=== PATIENT | male | born 1955 | race Caucasian/White ===

== ENCOUNTER 2017-08-06 14:10 | Inpatient (IN) ==
[2017-08-06 16:57] LABS: Basophils % 0.4 %; Eosinophils # 0.2 K/mcL (0.0-0.6); Hematocrit 43.7 % (37.5-50.1); Hemoglobin 14.4 g/dL (12.9-16.9); Immature Granulocytes % 0.3 % (0-4); Lymphocytes % 36.8 %; Mean Corpuscular Hemoglobin 31.6 pg (28.0-33.3); Mean Corpuscular Volume 95.8 fL (83.0-100.0); Mean Platelet Volume 10.5 fL (9.4-12.4); Monocytes # 0.8 K/mcL (0.0-1.3); Monocytes % 7.3 %; Neutrophils # 5.7 K/mcL (1.6-8.9); Platelet Count 117 K/mcL (140-400); Red Blood Count 4.56 M/mcL (4.19-5.50); Red Cell Distribution Width 15.8 % (11.5-14.5); Segmented Neutrophils % 53.2 %
--- NOTE | 2017-08-06 17:01 | Emergency Department Note ---
Disposition Clinical Impression: Fracture of third metatarsal bone of left foot, Failure to thrive Bimalleolar fracture of left ankle Qualifiers: Encounter type: initial encounter Fracture type: closed Qualified Code(s): S82.842A - Displaced bimalleolar fracture of left lower leg, initial encounter for closed fracture Fracture of second metatarsal bone of left foot Qualifiers: Encounter type: initial encounter Fracture type: closed Fracture dislocation of left ankle Qualifiers: Encounter type: initial encounter Fracture type: closed Qualified Code(s): S82.892A - Other fracture of left lower leg, initial encounter for closed fracture Disposition: Admitted As Inpatient Condition: Good Referrals: Sam Solorzano DO [Primary Care Provider] - Forms: ED Satisfaction Letter Time of Disposition: 17:06 General Adult HPI - General Chief complaint: ED Extremity Injury, Lower Stated complaint: LEG PAIN Time Seen by Provider: 08/06/17 14:18 Source: patient Mode of arrival: ambulatory Limitations: physical limitation Nursing Notes Reviewed: Yes Vital Signs Reviewed: Yes - History of Present Illness HPI Narrative: 61-year-old male presents emergency room for left lower leg pain. States he fell over a month ago injuring his left ankle. CTs been unable to ambulate secondary to the pain. He lives alone but has had a friend over at the house helping him get around. He states his left leg has become more swollen. He denies any history of DVT. He denies any chest pain or shortness of breath. No other complaints at this time other than lower left leg pain and swelling in weakness in this left leg. Pain Scale: 7 - Related Data Allergies Allergy/AdvReac Type Severity Reaction Status Date / Time No Known Allergies Allergy Verified 05/17/15 12:48 All systems ED: reviewed and negative except as stated. Constitutional: Reports: weakness. Denies: fever, chills Eyes: Reports: as per HPI ENT ED: Reports: as per HPI Cardiovascular: Reports: as per HPI Respiratory: Reports: as per HPI Gastrointestinal: Reports: as per HPI Genitourinary: Reports: as per HPI Musculoskeletal: Reports: as per HPI Integumentary: Reports: as per HPI Neurological: Reports: as per HPI Psychiatric: Reports: as per HPI Endocrine: Reports: as per HPI Hematological/Lymphatic: Reports: as per HPI Past Medical History - Past Medical History Medical history: Reports: COPD, diabetes, hyperlipidemia, hypertension, other Psychiatric history: Reports: anxiety, depression - Social History Smoking Status: Current every day smoker Smokeless Tobacco Status: No Alcohol use: Reports: none Drug use: Reports: none Physical Exam - General Limitations: physical limitation General appearance: alert - Head Head exam: atraumatic, normocephalic - Eye Eye exam: Present: normal appearance - Chest Chest inspection: Present: normal inspection - Respiratory Respiratory exam: Present: normal lung sounds bilaterally - Cardiovascular Cardiovascular exam: Present: regular rate, normal rhythm - Abdominal Exam Abdominal exam: Present: soft, Non-Tender - Expanded Lower Extremity Exam Lower leg exam: Present: tenderness (Diffuse tenderness involving the left lower extremity extending down into the foot. There is diffuse swelling in both lower extremities but worse on the left side extending up to the mid thigh. He has chronic skin changes.) 1 - Diffuse tenderness along the lateral malleolus on the left 2 - Diffuse tenderness along the medial malleolus of the left ankle Neurovascular/Tendon exam: Present: normal capillary refill Gait: observed and normal - Neurological Exam Neurological exam: Present: alert, oriented X3 - Skin Skin exam: Present: warm, dry, intact Course Vital Signs Temperature 98.4 F 08/06/17 14:12 Pulse Rate 106 08/06/17 14:12 Respiratory Rate 22 08/06/17 14:12 Blood Pressure 116/80 08/06/17 14:12 O2 Sat by Pulse Oximetry 97 08/06/17 14:12 Temperature 98.4 F 08/06/17 14:12 Pulse Rate 103 08/06/17 14:56 Respiratory Rate 14 08/06/17 14:56 Blood Pressure 113/80 08/06/17 14:56 O2 Sat by Pulse Oximetry 95 08/06/17 14:56 Oxygen Delivery Oxygen Delivery Room Air Medical Decision Making - MDM Narrative Medical decision making narrative: Concerns on the x-ray for a distal tib-fib fracture as well as the tibiotalar dislocation. He also has fractures of the second and third metatarsals of the left foot. I spoke with podiatry who agreed to evaluate the patient from their standpoint. Patient will be admitted to the hospitalist group as he is unable to ambulate or get around secondary to this which in turn has left him to be unkept and just can't take care of himself. Dr Wells will eval for possible surgery on this ankle. pt is a known diabetic. - Medical Records Medical records reviewed: Yes I reviewed the patient's medical records. - Lab Data Lab results reviewed: Yes I reviewed the patient's lab results. Result diagrams: 08/06/17 16:47 Lab Results 08/06/17 Range/Units 16:47 WBC 10.8 (4.3-11.1) K/mcL RBC 4.56 (4.19-5.50) M/mcL Hgb 14.4 (12.9-16.9) g/dL Hct 43.7 (37.5-50.1) % MCV 95.8 (83.0-100.0) fL MCH 31.6 (28.0-33.3) pg MCHC 33.0 (31.6-35.5) g/dL RDW 15.8 H (11.5-14.5) % Plt Count 117 L (140-400) K/mcL MPV 10.5 (9.4-12.4) fL Immature Gran % 0.3 (0-4) % Seg Neutrophils % 53.2 % Lymphocytes % 36.8 % Monocytes % 7.3 % Eosinophils % 2.0 % Basophils % 0.4 % Neutrophils # 5.7 (1.6-8.9) K/mcL Lymphocytes # 4.0 (0.6-4.6) K/mcL Monocytes # 0.8 (0.0-1.3) K/mcL Eosinophils # 0.2 (0.0-0.6) K/mcL Basophils # 0.0 (0.0-0.2) K/mcL - Radiology Data Radiology results reviewed: Yes I reviewed the patient's radiology results. - EKG Data EKG #1 EKG attestation: Yes I reviewed and interpreted this EKG. EKG results narrative: EKG shows a rate of the neck. No sinus rhythm. Normal axis. NJ interval 155. QRS 90. QTc 3:30. No signs of acute ischemia. Critical Care Time Critical Care Time: No
[2017-08-06 17:03] LABS: INR 1.2; Prothrombin Time 13.1 Seconds (9.4-12.1)
[2017-08-06 17:08] LABS: Carbon Dioxide 28 mEq/L (23-29); Chloride 103 mEq/L (98-107); Potassium 3.9 mEq/L (3.5-5.1); Sodium 136 mEq/L (136-145)
[2017-08-06 17:14] LABS: BUN/Creatinine Ratio 14 (6-26); Blood Urea Nitrogen 14 mg/dL (8-23); Glucose 99 mg/dL (70-105); Osmolality,Calculated 283 (280-300); eGFR For Non-African Americans > 60 (> 60)
[2017-08-06] MEDS ORDERED: Acetaminophen 325 MG TABLET PO PRN (20:54)
[2017-08-06] MEDS ORDERED: Naloxone 0.4 MG/ML INJ IVP PRN (20:54)
[2017-08-06] MEDS ORDERED: Furosemide 20 MG TABLET PO PRN (21:05)
[2017-08-06] MEDS ORDERED: D5% in Water 1,000 ML IVC PRN (21:09)
[2017-08-06] MEDS ORDERED: *HR* Dextrose 50 % in Water (Syg) 50 ML SYRINGE IVP PRN (21:09)
[2017-08-06] MEDS ORDERED: Dextrose Gel 15 GM/37.5 ML TUBE PO PRN ×2 (21:09)
--- NOTE | 2017-08-06 21:16 | Internal Med History&Physical ---
Date of Encounter: 08/06/17 Time of Encounter: 19:00 Assessment and Plan (1) Diabetes mellitus Current visit: Yes Status: Acute Will place pt on Basal and SS insulin. 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 He is not using CPAP now. I offered CPAP or O2 in hospital, pt refused and said he is fine. Will place oximetry monitoring. (4) DVT prophylaxis Current visit: Yes Status: Acute Heparin SC (5) Bimalleolar fracture of left ankle Current visit: Yes Status: Acute Podiatry was consulted. Place pain management. NPO from midnight for possible surgery. Qualifiers: Encounter type: initial encounter Fracture type: closed Qualified Code(s) : S82.842A - Displaced bimalleolar fracture of left lower leg, initial encounter for closed fracture Internal Medicine - H&P: HPI Chief complaint: Fall, left ankle pain Admitted From: Home Plans for Post Hospital Care: Home History of present illness: Mr. Cannon is a 61 year old male with Hx of DM, HTN, Rt eye blindness, DARCI, present to ER for fall and left ankle pain. Pt has fall in 7 wks ago. Pt said he is not sure regarding if he lost consciousness or not because he has frequent dizzy spell in last 6 months. He feels dizzy anytime when he stand up suddenly. After the fall, he feels left ankle pain. He thought it is twisted but concern raised after 7 weeks the pain remains. In ER, He was found ankle fracture. Podiatry consult was called and pt was admitted for further evaluation. Pt denies chest pain, SOB, fever. Past Med Surg Social Fam HX - Past Medical History Medical history: COPD, diabetes, hyperlipidemia, hypertension, other Psychiatric history: anxiety, depression - Social History Smoking Status: Current every day smoker Smokeless Tobacco Status: No Alcohol use: none Drug use: none - Family History Mother Hx Family Cardiac Disorders: Yes (chf) Hx Family Endocrine Disorder: Yes (Diabetes) Internal Medicine - H&P: Meds Albuterol Sulfate [Ventolin Hfa] 2 puff IH Q4H PRN 08/06/17 [History] Ampicillin Trihydrate 500 mg PO Q6H 08/06/17 [History] Cholecalciferol (Vitamin D3) [Vitamin D] 2,000 unit PO DAILY 08/06/17 [History] Citalopram Hydrobromide [Celexa] 40 mg PO DAILY 08/06/17 [History] Cyclobenzaprine HCl 10 mg PO TID PRN 08/06/17 [History] Fluticasone Propionate Nasal [Flonase] 50 mcg NS DAILY 08/06/17 [History] Furosemide [Lasix] 20 mg PO DAILY PRN 08/06/17 [History] HYDROmorphone [Dilaudid] 2 mg PO Q12H 08/06/17 [History] Insulin Degludec [Tresiba Flextouch U-100] 50 unit SQ QPM 08/06/17 [History] Insulin LISPRO [Humalog Kwikpen U-100] 30 unit SQ QPM 08/06/17 [History] Lisinopril [Zestril] 20 mg PO DAILY 08/06/17 [History] Lovastatin [Lovastatin] 40 mg PO HS 08/06/17 [History] Oxymorphone HCl [Oxymorphone HCl ER] 5 mg PO DAILY 08/06/17 [History] Potassium Chloride [Klor-Con 10] 10 meq PO BID PRN 08/06/17 [History] Tamsulosin [Flomax] 0.4 mg PO DAILY 08/06/17 [History] Zolpidem [Ambien] 10 mg PO HS PRN 08/06/17 [History] 3 Allergy/AdvReac Type Severity Reaction Status Date / Time No Known Allergies Allergy Verified 05/17/15 12:48 All Systems PM: A 10-system review of systems was performed and is negative for pertinent findings except as documented above in the HPI. - Constitutional Vitals: Temp Pulse Resp BP Pulse Ox 98.3 F 97 18 115/73 94 08/06/17 19:49 08/06/17 19:49 08/06/17 19:49 08/06/17 19:49 08/06/17 19:49 General appearance: Present: A&O X 3, no acute distress, answers questions appropriately - Head Head exam: Present: atraumatic, normocephalic - Eye Eye exam: Present: PERRL, conjuntiva pink, sclera anicteric Pupils: Present: PERRL Additional comments: Rt eye blindness - Neck Neck exam general surgery: Present: supple, trachea midline. Absent: lymphadenopathy - Respiratory Respiratory exam: Present: CTAB. Absent: accessory muscle use, rales, rhonchi, wheezes - Cardiovascular Cardiovascular exam: Present: RRR, +S1, +S2. Absent: diastolic murmur, gallop, rubs, systolic murmur - GI/Abdominal GI/Abdominal exam: Present: normal bowel sounds, soft, no peritoneal signs. Absent: distended, tenderness - Extremities Exam Extremities exam: Present: warm, radial pulses palpable and symmetrical. Absent : calf tenderness, cyanotic, pedal edema Additional comments: Left leg swelling, left ankle ROM limited due to pain. - Neurological Exam Neurological exam: Present: CN II-XII intact, oriented X3, no focal deficits. Absent: pronater drift, facial droop, speech deficit - Skin Skin exam: Present: dry, intact Internal Med - H&P Results - Labs CBC & Chem 7: 08/06/17 16:47 08/06/17 16:47 - EKG Data -: EKG Interpreted by Myself EKG shows normal: sinus rhythm Rate: normal
[2017-08-07] MEDS: Insulin DETEMIR 100 UNIT/ML X5UNITS SQ SCH ×2 (00:41→23:18)
[2017-08-07] MEDS: *HR* Heparin 5,000 UNIT/ML VIAL SQ SCH ×2 (06:10→16:35)
[2017-08-07 07:30] LABS: Basophils % 0.5 %; Eosinophils # 0.3 K/mcL (0.0-0.6); Eosinophils % 3.3 %; Hematocrit 40.5 % (37.5-50.1); Immature Granulocytes % 0.2 % (0-4); Immature Platelets 3.1 % (1.1-6.1); Lymphocytes # 4.1 K/mcL (0.6-4.6); Lymphocytes % 49.8 %; Mean Corpuscular HGB Conc 32.1 g/dL (31.6-35.5); Mean Corpuscular Hemoglobin 31.4 pg (28.0-33.3); Mean Corpuscular Volume 97.8 fL (83.0-100.0); Mean Platelet Volume 10.2 fL (9.4-12.4); Monocytes # 0.6 K/mcL (0.0-1.3); Monocytes % 7.8 %; Neutrophils # 3.2 K/mcL (1.6-8.9); Nucleated Red Blood Cells 0.4 /100 WBC (0); Red Blood Count 4.14 M/mcL (4.19-5.50); Red Cell Distribution Width 15.9 % (11.5-14.5); Segmented Neutrophils % 38.4 %
[2017-08-07 07:33] LABS: Platelet Count 99 K/mcL (140-400)
[2017-08-07 07:34] LABS: Hemoglobin A1C 5.6 %
[2017-08-07 07:45] LABS: BUN/Creatinine Ratio 14 (6-26); Blood Urea Nitrogen 14 mg/dL (8-23); Calcium 8.6 mg/dL (8.6-10.3); Carbon Dioxide 27 mEq/L (23-29); Chloride 107 mEq/L (98-107); Glucose 73 mg/dL (70-105); Osmolality,Calculated 285 (280-300); Potassium 4.1 mEq/L (3.5-5.1); Sodium 138 mEq/L (136-145); eGFR For Non-African Americans > 60 (> 60)
[2017-08-07] MEDS: Insulin LISPRO 300 UNITS/3 ML VIAL SQ SCH ×4 (08:24→23:18)
[2017-08-07] MEDS: Lisinopril 20 MG TABLET PO SCH (08:56)
[2017-08-07] MEDS: Cholecalciferol (D-3) 1,000 UNIT TABLET PO SCH (08:56)
[2017-08-07] MEDS: Fluticasone Propionate Nasal 50 MCG/SPRAY BOTTLE NS SCH (08:56)
[2017-08-07] MEDS ORDERED: Nicotine 21 MG PATCH.TD24 TD SCH (09:00)
--- NOTE | 2017-08-07 09:24 | Internal Med Progress Note ---
<[email or web address] - Last Filed: 08/07/17 09:22> Date of Encounter: 08/07/17 Time of Encounter: 09:22 - Assessment and plan (1) Bimalleolar fracture of left ankle Current Visit: Yes Status: Acute Assessment and plan: Patient arrived to the hospital after a fall at home. X-ray of the left ankle showed subacute fractures of distal tibia and fibula with tibiotalar dislocation x-ray of the left foot showed chronic 2nd and 3rd toe fractures with posterior tibiotalar dislocation. plan: consult to PT/OT consult to podiatry pending echocardiogram pending carotid duplex pending orthostatic vitals Qualifiers: Encounter type: initial encounter Fracture type: closed Qualified Code(s) : S82.842A - Displaced bimalleolar fracture of left lower leg, initial encounter for closed fracture (2) Fall Current Visit: Yes Status: Acute Assessment and plan: Same as above. Qualifiers: Encounter type: sequela Qualified Code(s): W19.XXXS - Unspecified fall, sequela (3) Lower extremity edema Current Visit: Yes Status: Acute Assessment and plan: Patient takes Lasix at home PRN last echo from 09/14/16 showed LVEF 65-70%, mild concentric LVH, indeterminate diastolic function, normal RV size and function. Plan: will get UA to rule out proteinuria repeat echo (4) HTN (hypertension) Current Visit: Yes Status: Acute Assessment and plan: Continue medications blood pressures are stable at this time. Qualifiers: Hypertension type: essential hypertension Qualified Code(s): I10 - Essential (primary) hypertension (5) Tobacco abuse Current Visit: Yes Status: Acute Assessment and plan: Smoking cessation advice. Nicotine patch PRN (6) DARCI (obstructive sleep apnea) Current Visit: Yes Status: Acute Assessment and plan: Patient does have CPAP shooting at home that does not work. He refused CPAP in the hospital. 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 Patient denies nausea, vomiting, diarrhea, fever, chills, chest pain, shortness of breath. He states that he lives at home with a friend, and he has had multiple files in the past. He denies loss of consciousness. He states that when default occur, his legs "give out". He denies any new problems today. - Constitutional Vitals: Temp Pulse Resp BP Pulse Ox 97.6 F 82 16 116/69 92 08/07/17 07:29 08/07/17 07:29 08/07/17 07:29 08/07/17 07:29 08/07/17 07:29 General appearance: Present: A&O X 3, pleasant, no acute distress, answers questions appropriately Exam: Patient looks very disheveled. - Head Head exam: Present: atraumatic, normocephalic - Neck Neck exam general surgery: Present: supple, trachea midline - Respiratory Respiratory exam: Present: CTAB - Cardiovascular Cardiovascular exam: Present: RRR, +S1, +S2 - GI/Abdominal GI/Abdominal exam: Present: distended, normal bowel sounds, soft. Absent: tenderness - Extremities Exam Additional comments: Bilateral lower extremity venous stasis present. he has very dry skin is bilateral lower extremities. There is +1 pitting edema present and is bilateral lower extremities. - Neurological Exam Neurological exam: Present: alert, oriented X3, no focal deficits - Psychiatric Psychiatric exam: Present: normal affect, normal mood Internal Medicine: Result - Labs CBC & Chem 7: 08/07/17 06:53 08/07/17 06:53 Labs: Short CBC 08/07/17 Range/Units 06:53 WBC 8.2 (4.3-11.1) K/mcL Hgb 13.0 (12.9-16.9) g/dL Hct 40.5 (37.5-50.1) % Plt Count 99 L (140-400) K/mcL Neutrophils # 3.2 (1.6-8.9) K/mcL BMP 08/07/17 06:53 Sodium 138 Potassium 4.1 Chloride 107 Carbon Dioxide 27 BUN 14 Creatinine 1.02 Glucose 73 Calcium 8.6 - ABG Interpretation ABG results: PT/INR, D-dimer PT 13.1 Seconds (9.4-12.1) H 08/06/17 16:47 Consult Discharge Plan - Plan Referrals: Sam Solorzano DO [Primary Care Provider] - <Wenceslao Desai Sandoval - Last Filed: 08/07/17 13:32> Date of Encounter: 08/07/17 - Constitutional Vitals: Temp Pulse Resp BP Pulse Ox 97.8 F 87 16 118/86 93 08/07/17 11:22 08/07/17 12:46 08/07/17 11:22 08/07/17 12:46 08/07/17 11:22 Internal Medicine: Result - Labs CBC & Chem 7: 08/07/17 06:53 08/07/17 06:53 Labs: Short CBC 08/07/17 Range/Units 06:53 WBC 8.2 (4.3-11.1) K/mcL Hgb 13.0 (12.9-16.9) g/dL Hct 40.5 (37.5-50.1) % Plt Count 99 L (140-400) K/mcL Neutrophils # 3.2 (1.6-8.9) K/mcL BMP 08/07/17 06:53 Sodium 138 Potassium 4.1 Chloride 107 Carbon Dioxide 27 BUN 14 Creatinine 1.02 Glucose 73 Calcium 8.6 Urine 08/07/17 Range/Units 12:25 Urine Color Dark Yellow (Yellow) Urine Clarity Clear (Clear) Urine pH 6.0 (5.0-8.0) pH Units Ur Specific Nordman 1.019 (1.010-1.025) Urine Protein Negative (Neg-Trace) mg/dL Urine Glucose (UA) Normal (Normal) mg/dL - ABG Interpretation ABG results: PT/INR, D-dimer PT 13.1 Seconds (9.4-12.1) H 08/06/17 16:47 - Attending Attestation I personally reviewed and examined this patient. I agree with the findings, assessment, and plan of Dr. Hilton. Podiatry input is appreciated. Patient is having vascular studies prior to consideration for surgery. Etiology of his falls is unclear. He did state that he got up fairly quickly prior to his legs giving out. I did also notice his urinal at the bedside had very dark urine, raising concerns that he may be dehydrated. Presently he does not appear to be dehydrated otherwise. He does have chronic venous stasis changes bilaterally. We will await vascular studies. Also counseled patient on the importance of smoking cessation. All else as outlined above.
[2017-08-07] MEDS ORDERED: Nicotine 7 MG PATCH.TD24 TD PRN (09:29)
[2017-08-07] MEDS: Furosemide 20 MG TABLET PO SCH (10:08)
[2017-08-07 12:34] LABS: Bilirubin,Urine Negative (Negative); Blood,Urine Negative (Negative); Clarity,Urine Clear (Clear); Color,Urine Dark Yellow (Yellow); Glucose,Urine (UA) Normal (Normal); Ketones,Urine Negative (Negative); Leukocyte Esterase,Urine Negative (Negative); Nitrite,Urine Negative (Negative); Protein,Urine Negative (Neg-Trace); Specific Gravity,Urine 1.019 (1.010-1.025); Urobilinogen,Urine Normal (Normal)
--- NOTE | 2017-08-07 13:06 | Podiatry Consult Note ---
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 He would require an ankle fusion if he were to have surgery. will first assess his blood flow and discussed with patient it is imperative he stops smoking if he continues, he increases the risk that the bone sites would not heal and the chance he have his leg amputated. discussed scenarios with patient surgery vs no surgery. he will think about it and further discuss after AMENA/PVR done to evaluate healing potential. did discuss with patient body habitus, appearance of his legs and his health in general. did discuss with patient is a real possibility he ends up with an amputation of his leg. History of Present Illness HPI: Mr. Cannon is a 61 year old diabetic male who was admitted to the hospital unable to ambulate. He does say he remembers falling and hurting his left ankle but cannot recall exactly when he says it is anywhere from 3-7 weeks ago. He says he thought it would get better on its own so he did not seek help for it. He says a friend was helping him around the house. He says he tries to put weight on it but it has hurt too much. He says he finally came to the hospital because he was not getting better. 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 He says he is on antibiotics for life but not sure which one since having the picc line removed. Xrays were taken in the ER and CT scan done of the left ankle. Past Med Surg Social Fam HX - Past Medical History Medical history: COPD, diabetes, hyperlipidemia, hypertension, other Psychiatric history: anxiety, depression - Social History Smoking Status: Current every day smoker Smokeless Tobacco Status: No Alcohol use: none Drug use: none - Family History Mother Hx Family Cardiac Disorders: Yes (chf) Hx Family Endocrine Disorder: Yes (Diabetes) Medications and Allergies Albuterol Sulfate [Ventolin Hfa] 2 puff IH Q4H PRN 08/06/17 [History] Ampicillin Trihydrate 500 mg PO Q6H 08/06/17 [History] Cholecalciferol (Vitamin D3) [Vitamin D] 2,000 unit PO DAILY 08/06/17 [History] Citalopram Hydrobromide [Celexa] 40 mg PO DAILY 08/06/17 [History] Cyclobenzaprine HCl 10 mg PO TID PRN 08/06/17 [History] Fluticasone Propionate Nasal [Flonase] 50 mcg NS DAILY 08/06/17 [History] Furosemide [Lasix] 20 mg PO DAILY PRN 08/06/17 [History] HYDROmorphone [Dilaudid] 2 mg PO Q12H 08/06/17 [History] Insulin Degludec [Tresiba Flextouch U-100] 50 unit SQ QPM 08/06/17 [History] Insulin LISPRO [Humalog Kwikpen U-100] 30 unit SQ QPM 08/06/17 [History] Lisinopril [Zestril] 20 mg PO DAILY 08/06/17 [History] Lovastatin [Lovastatin] 40 mg PO HS 08/06/17 [History] Oxymorphone HCl [Oxymorphone HCl ER] 5 mg PO DAILY 08/06/17 [History] Potassium Chloride [Klor-Con 10] 10 meq PO BID PRN 08/06/17 [History] Tamsulosin [Flomax] 0.4 mg PO DAILY 08/06/17 [History] Zolpidem [Ambien] 10 mg PO HS PRN 08/06/17 [History] 3 Allergy/AdvReac Type Severity Reaction Status Date / Time No Known Allergies Allergy Verified 05/17/15 12:48 All Systems Reviewed: A 10-system review of systems was performed and is negative for pertinent findings except as documented above in the HPI. - Constitutional Constitutional: no fever(s) - Cardiovascular Cardiovascular: no chest pain, no rapid heart rate - Respiratory Respiratory: no cough, no dyspnea - Musculoskeletal Musculoskeletal: joint swelling, limited range of motion, muscle weakness, numbness, other (difficulty walking, left ankle pain) Physical Exam - Constitutional Vitals: Temp Pulse Resp BP Pulse Ox 97.8 F 87 16 118/86 93 08/07/17 11:22 08/07/17 12:46 08/07/17 11:22 08/07/17 12:46 08/07/17 11:22 - Ankle & Foot Exam: well developed obese male in no acute distress feet and legs are warm to touch. b/l legs are edematous with evidence of chronic lymphedema. legs are indurated b/l. there is no erythema or open lesions on either extremity currently. unable to assess ROM secondary to injury/ pain sensation altered to touch. sensation is intact to left foot 10/10 sites with 5.07 swmf. venous doppler-neg for dvt xray-dislocated valgus mal-alignment of talus in the ankle mortise. non-union of the fibula fracture and small medial malleolar fragment of the bimalleolar fragment. callus formation of the fibula fracture. CT scan Bones: CT confirms presence of an oblique fracture involving the distal fibula at the level the syndesmosis. This appears to be subacute, given ill definition of the fracture planes, along with callus formation. Likewise, there is a fracture of the medial malleolus, which also appears subacute. Soft Tissue: Circumferential soft tissue swelling is detected. No convincing evidence of tendinous entrapment is seen involving the medial flexor and peroneal tendons. The anterior extensor tendons are unremarkable, as is the Achilles tendon. There is enthesopathy seen at the Achilles attachment on the calcaneus, along with plantar enthesopathy noted as well. There is no evidence of an avulsion injury involving the extensor digitorum brevis muscle. Joint: The fractures are leading to instability at the tibiotalar joint, with medial widening of the ankle mortise, and with lateral displacement of the talar dome relative to tibial plafond. The subtalar joint is unremarkable in appearance, with an intact anterior process of the calcaneus. There is normal alignment of the talonavicular joint, along with normal alignment of the Lisfranc joint. Results - Labs Result Diagrams: 08/07/17 06:53 08/07/17 06:53 Labs: Abnormal lab results RBC 4.14 M/mcL (4.19-5.50) L 08/07/17 06:53 RDW 15.9 % (11.5-14.5) H 08/07/17 06:53 Plt Count 99 K/mcL (140-400) L 08/07/17 06:53 Nucleated RBCs/100 WBC 0.4 /100 WBC (0) H 08/07/17 06:53 PT 13.1 Seconds (9.4-12.1) H 08/06/17 16:47 POC Glucose 109 (58-89) H 08/07/17 11:28 H & H 08/07/17 Range/Units 06:53 Hgb 13.0 (12.9-16.9) g/dL Hct 40.5 (37.5-50.1) % All other labs normal. Consult Discharge Plan - Plan Referrals: Sam Solorzano, [Primary Care Provider] -
[2017-08-08] MEDS: *HR* Heparin 5,000 UNIT/ML VIAL SQ SCH ×2 (06:27→16:27)
[2017-08-08] MEDS: Insulin LISPRO 300 UNITS/3 ML VIAL SQ SCH ×4 (08:22→22:42)
[2017-08-08] MEDS: Cholecalciferol (D-3) 1,000 UNIT TABLET PO SCH (08:23)
[2017-08-08] MEDS: Furosemide 20 MG TABLET PO SCH (09:01)
[2017-08-08] MEDS: Lisinopril 20 MG TABLET PO SCH (09:01)
[2017-08-08] MEDS: Fluticasone Propionate Nasal 50 MCG/SPRAY BOTTLE NS SCH (09:03)
--- NOTE | 2017-08-08 13:41 | Internal Med Progress Note ---
<Mykel Hilton - Last Filed: 08/08/17 13:39> Date of Encounter: 08/08/17 Time of Encounter: 13:40 - Assessment and plan (1) Bimalleolar fracture of left ankle Current Visit: Yes Status: Acute Assessment and plan: Patient arrived to the hospital after a fall at home. X-ray of the left ankle showed subacute fractures of distal tibia and fibula with tibiotalar dislocation x-ray of the left foot showed chronic 2nd and 3rd toe fractures with posterior tibiotalar dislocation. Podiatry has ordered lower extremity AMENA, which has been within normal limits venous duplex of left lower extremity negative for DVT. Preliminary carotid duplex study showed non-stenotic plaque in the right ICA, left ICA within normal limits. Orthostatic vitals negative plan: consult to PT/OT appreciate podiatry recs possible surgery this week per podiatry Qualifiers: Encounter type: initial encounter Fracture type: closed Qualified Code(s) : S82.842A - Displaced bimalleolar fracture of left lower leg, initial encounter for closed fracture (2) Fall Current Visit: Yes Status: Acute Assessment and plan: Same as above. Qualifiers: Encounter type: sequela Qualified Code(s): W19.XXXS - Unspecified fall, sequela (3) Lower extremity edema Current Visit: Yes Status: Acute Assessment and plan: Patient takes Lasix at home PRN your analysis showed no evidence of proteinuria echocardiogram showed ES 60%, mild left ventricular diastolic dysfunction, or more right ventricular structure and function, no valvular dysfunction, no pulmonary hypertension (4) HTN (hypertension) Current Visit: Yes Status: Acute Assessment and plan: Continue medications blood pressures are stable at this time. Qualifiers: Hypertension type: essential hypertension Qualified Code(s): I10 - Essential (primary) hypertension (5) Tobacco abuse Current Visit: Yes Status: Acute Assessment and plan: Smoking cessation advice. Nicotine patch PRN (6) DARCI (obstructive sleep apnea) Current Visit: Yes Status: Acute Assessment and plan: Patient does have CPAP shooting at home that does not work. He refused CPAP in the hospital. 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 Patient denies nausea, vomiting, diarrhea, fever, chills, chest pain, shortness of breath, he denies any new problems today. - Constitutional Vitals: Temp Pulse Resp BP Pulse Ox 97.7 F 79 14 123/73 97 08/08/17 10:44 08/08/17 10:44 08/08/17 10:44 08/08/17 10:44 08/08/17 10:44 General appearance: Present: A&O X 3, pleasant, no acute distress, answers questions appropriately - Head Head exam: Present: atraumatic, normocephalic - Neck Neck exam general surgery: Present: supple, trachea midline - Respiratory Respiratory exam: Present: CTAB - Cardiovascular Cardiovascular exam: Present: RRR, +S1, +S2 - GI/Abdominal GI/Abdominal exam: Present: normal bowel sounds, soft. Absent: distended, tenderness - Extremities Exam Extremities exam: Absent: cyanotic Additional comments: +1 bilateral lower extremity pitting edema. - Neurological Exam Neurological exam: Present: alert, oriented X3, no focal deficits - Psychiatric Psychiatric exam: Present: normal affect, normal mood Internal Medicine: Result - Labs CBC & Chem 7: 08/07/17 06:53 08/07/17 06:53 - ABG Interpretation ABG results: PT/INR, D-dimer PT 13.1 Seconds (9.4-12.1) H 08/06/17 16:47 - Impressions Impressions Echocardiogram 08/07/17 21:06 Impressions: LVEF 60%. Mild left ventricular diastolic dysfunction. Normal right ventricular structure and function. No significant valvular dysfunction. No pulmonary hypertension. Ascending aorta not well visualized. Left Ventricular Wall Motion: Rest Echo Findings All wall segments showed normal motion. Findings: Study Quality * Technically adequate exam. ECG Findings * Normal sinus rhythm. Left Ventricle * LVEF 60%. * Mild left ventricular diastolic dysfunction. * Normal LV size. * LV wall thickness measurements not well obtained. Right Ventricle * Normal right ventricular structure and function. Left Atrium * Normal left atrial size. Right Atrium * Normal right atrial size. Mitral Valve * Normal mitral valve structure. * No mitral stenosis. * No mitral regurgitation. Aortic Valve * Trileaflet aortic valve. * No aortic stenosis. * Trace aortic regurgitation. Tricuspid Valve * Tricuspid valve not well visualized. * No tricuspid regurgitation. * Estimated RA pressure is 3 mmHg. * Estimated RVSP is 29 mmHg. * No pulmonary hypertension. Pulmonic Valve * Pulmonic valve is not well visualized. * No pulmonic stenosis. * No pulmonic regurgitation. Pulmonary Artery * Pulmonary artery not well visualized. Aorta * Normally sized aortic root. * Ascending aorta not well visualized. Pericardium * There is no pericardial effusion present. Interatrial Septum * No evidence of PFO by color Doppler. IVC * The IVC is not dilated. Consult Discharge Plan - Plan Referrals: Sam Solorzano DO [Primary Care Provider] - <Wenceslao Dseai - Last Filed: 08/08/17 15:24> Date of Encounter: 08/08/17 - Constitutional Vitals: Temp Pulse Resp BP Pulse Ox 97.7 F 84 16 128/76 96 08/08/17 14:08 08/08/17 14:08 08/08/17 14:08 08/08/17 14:08 08/08/17 14:08 Internal Medicine: Result - Labs CBC & Chem 7: 08/07/17 06:53 08/07/17 06:53 - ABG Interpretation ABG results: PT/INR, D-dimer PT 13.1 Seconds (9.4-12.1) H 08/06/17 16:47 - Impressions Impressions Echocardiogram 08/07/17 21:06 Impressions: LVEF 60%. Mild left ventricular diastolic dysfunction. Normal right ventricular structure and function. No significant valvular dysfunction. No pulmonary hypertension. Ascending aorta not well visualized. Left Ventricular Wall Motion: Rest Echo Findings All wall segments showed normal motion. Findings: Study Quality * Technically adequate exam. ECG Findings * Normal sinus rhythm. Left Ventricle * LVEF 60%. * Mild left ventricular diastolic dysfunction. * Normal LV size. * LV wall thickness measurements not well obtained. Right Ventricle * Normal right ventricular structure and function. Left Atrium * Normal left atrial size. Right Atrium * Normal right atrial size. Mitral Valve * Normal mitral valve structure. * No mitral stenosis. * No mitral regurgitation. Aortic Valve * Trileaflet aortic valve. * No aortic stenosis. * Trace aortic regurgitation. Tricuspid Valve * Tricuspid valve not well visualized. * No tricuspid regurgitation. * Estimated RA pressure is 3 mmHg. * Estimated RVSP is 29 mmHg. * No pulmonary hypertension. Pulmonic Valve * Pulmonic valve is not well visualized. * No pulmonic stenosis. * No pulmonic regurgitation. Pulmonary Artery * Pulmonary artery not well visualized. Aorta * Normally sized aortic root. * Ascending aorta not well visualized. Pericardium * There is no pericardial effusion present. Interatrial Septum * No evidence of PFO by color Doppler. IVC * The IVC is not dilated. - Attending Attestation I personally interviewed and examined this patient. I agree with the findings, assessment, and plan of Dr. Hilton, internal medicine resident. Podiatry input is appreciated. He is being considered for surgery. Vascular studies were performed which showed no obvious significant vascular disease. Currently awaiting decision between podiatry and the patient regarding potential for surgery. A cardiogram and carotid ultrasound showed no significant abnormalities. Etiology of his near syncope, possibly vasovagal. She otherwise is doing okay with no other acute issues. Continue with physical therapy.
[2017-08-08] MEDS ORDERED: Furosemide 40 MG/4 ML VIAL IVP ONE (13:47)
--- NOTE | 2017-08-08 17:06 | Podiatry Progress Note ---
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 He would require an ankle fusion if he were to have surgery. We discussed his AMENA/PVR. he says he will stop smoking today and I reminded him the importance of smoking cessation and that he increases the risk that the bone sites would not heal and the chance he have his leg amputated or develop and infection or wound healing problems if he does smoke. discussed scenarios with patient surgery and alternatives to surgery. did again discuss with patient body habitus, appearance of his legs and his health in general. did discuss with patient there is a real possibility he ends up with an amputation of his leg. Nature of ankle fusion discussed as well as the risks and potential complications of surgery-infection bleeding swelling numbness tingling nerve damage loss of function lack of desired outcome blood clot penumonia heart attack loss of leg arthritis nonunion or delayed union of bone wound healing problems failure of hardware reaction to implants need for implant removal need for further surgery etc. discussed he could get a second opinion if he would like. he says he understands and wants to proceed with surgery understanding he is at risk for limb loss. no guarantees made as to the outcome. Did discuss typical course of recovery which includes non-weight bearing for at least 12 weeks and possibly longer. discussed with him going to an ECF which he says he will refuse and he has help at home and must go back to his home. advised patient against going home as he is higher risk for falling and developing a complication, he says it is a risk he will have to take and he will go home not to an ECF after surgery. Surgery planning for Sunday. will need to be NPO after midnight on except meds and medically optimized for surgery. All questions answered and informed consent was signed. Subjective Interval history: patient has no new complaints. unable to weightbear on left lower extremity. got AMENA/PVR done. Objective - Vital Signs Vital Signs: Vital Signs Temp Pulse Resp BP Pulse Ox 08/08/17 14:08 97.7 F 84 16 128/76 96 08/08/17 10:44 97.7 F 79 14 123/73 97 08/08/17 09:04 89 120/71 08/08/17 08:12 97.8 F 81 14 101/66 94 08/08/17 04:03 97.5 F L 86 18 113/64 94 08/08/17 00:46 98.1 F 92 16 112/55 95 08/07/17 19:07 98.5 F 93 18 107/73 95 Intake and Output 08/08/17 08/08/17 08/08/17 07:59 15:59 23:59 Intake Total 0 / 0 450 / 450 Output Total 850 / 850 1200 / 1200 250 / 250 Balance -850 / -850 -750 / -750 -250 / -250 Intake: Oral 0 / 0 450 / 450 Output: Urine 850 / 850 1200 / 1200 250 / 250 Other: Meal Lunch Percent of Meal Consumed 90% Blood Glucose* 71 123 - Exam Exam: well developed obese male in no acute distress feet and legs are warm to touch. b/l legs are edematous with evidence of chronic lymphedema. legs are indurated b/l. there is no erythema or open lesions on either extremity currently. unable to assess ROM secondary to injury/ pain. he does not have pain with compression of the metatarsals. sensation altered to touch. sensation is intact to left foot 10/10 sites with 5.07 swmf. AMENA/PVR-left wnl - Lab Result Diagrams: 08/07/17 06:53 08/07/17 06:53 Labs: Abnormal lab results RBC 4.14 M/mcL (4.19-5.50) L 08/07/17 06:53 RDW 15.9 % (11.5-14.5) H 08/07/17 06:53 Plt Count 99 K/mcL (140-400) L 08/07/17 06:53 Nucleated RBCs/100 WBC 0.4 /100 WBC (0) H 08/07/17 06:53 PT 13.1 Seconds (9.4-12.1) H 08/06/17 16:47 Consult Discharge Plan - Plan Referrals: Sam Solorzano, [Primary Care Provider] -
[2017-08-08] MEDS: Insulin DETEMIR 100 UNIT/ML X5UNITS SQ SCH (22:41)
[2017-08-09] MEDS: *HR* Heparin 5,000 UNIT/ML VIAL SQ SCH ×2 (06:01→16:48)
[2017-08-09 06:43] LABS: BUN/Creatinine Ratio 18 (6-26); Blood Urea Nitrogen 17 mg/dL (8-23); Calcium 8.8 mg/dL (8.6-10.3); Carbon Dioxide 30 mEq/L (23-29); Chloride 103 mEq/L (98-107); Glucose 99 mg/dL (70-105); Osmolality,Calculated 288 (280-300); Potassium 3.8 mEq/L (3.5-5.1); Sodium 138 mEq/L (136-145); eGFR For Non-African Americans > 60 (> 60)
[2017-08-09] MEDS: Insulin LISPRO 300 UNITS/3 ML VIAL SQ SCH ×4 (08:47→21:55)
[2017-08-09] MEDS: Lisinopril 20 MG TABLET PO SCH (09:12)
[2017-08-09] MEDS: Fluticasone Propionate Nasal 50 MCG/SPRAY BOTTLE NS SCH (09:12)
[2017-08-09] MEDS: Furosemide 20 MG TABLET PO SCH (09:12)
[2017-08-09] MEDS: Cholecalciferol (D-3) 1,000 UNIT TABLET PO SCH (09:12)
--- NOTE | 2017-08-09 10:41 | Internal Med Progress Note ---
<Mykel Hilton - Last Filed: 08/09/17 10:39> Date of Encounter: 08/09/17 Time of Encounter: 10:40 - Assessment and plan (1) Bimalleolar fracture of left ankle Current Visit: Yes Status: Acute Assessment and plan: Patient arrived to the hospital after a fall at home. X-ray of the left ankle showed subacute fractures of distal tibia and fibula with tibiotalar dislocation x-ray of the left foot showed chronic 2nd and 3rd toe fractures with posterior tibiotalar dislocation. Podiatry has ordered lower extremity AMENA, which has been within normal limits venous duplex of left lower extremity negative for DVT. Preliminary carotid duplex study showed non-stenotic plaque in the right ICA, left ICA within normal limits. Orthostatic vitals negative plan: continue increased dose of oral Lasix daily to help with lower extremity edema, likely secondary to diastolic CHF consult to PT/OT appreciate podiatry recs PO except medications after midnight. Surgery tomorrow per podiatry. Patient understands risks and benefits. Qualifiers: Encounter type: initial encounter Fracture type: closed Qualified Code(s) : S82.842A - Displaced bimalleolar fracture of left lower leg, initial encounter for closed fracture (2) Fall Current Visit: Yes Status: Acute Assessment and plan: Same as above. Qualifiers: Encounter type: sequela Qualified Code(s): W19.XXXS - Unspecified fall, sequela (3) Lower extremity edema Current Visit: Yes Status: Acute Assessment and plan: Patient takes Lasix at home PRN urinanalysis showed no evidence of proteinuria echocardiogram showed EF 60%, mild left ventricular diastolic dysfunction, or more right ventricular structure and function, no valvular dysfunction, no pulmonary hypertension Plan: should not received one-time dose of IV Lasix yesterday, this has significantly improved his edema. Doubled patient's home dose of oral Lasix to 40 mg daily. (4) HTN (hypertension) Current Visit: Yes Status: Acute Assessment and plan: Continue medications blood pressures are stable at this time. Qualifiers: Hypertension type: essential hypertension Qualified Code(s): I10 - Essential (primary) hypertension (5) Tobacco abuse Current Visit: Yes Status: Acute Assessment and plan: Smoking cessation advice. Nicotine patch PRN (6) DARCI (obstructive sleep apnea) Current Visit: Yes Status: Acute Assessment and plan: Patient does have CPAP shooting at home that does not work. He refused CPAP in the hospital. (7) Diabetes mellitus Current Visit: Yes Status: Acute Assessment and plan: Diabetic diet basal with low-dose sliding scale insulin a [facility] Accu checks. let sugars well-controlled at this time. 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 Patient denies nausea, vomiting, diarrhea, fever, chills, chest pain, shortness of breath, he denies any new problems today. - Constitutional Vitals: Temp Pulse Resp BP Pulse Ox 98.8 F 81 18 113/76 93 08/09/17 08:13 08/09/17 08:13 08/09/17 08:13 08/09/17 08:13 08/09/17 09:29 General appearance: Present: A&O X 3, pleasant, no acute distress, answers questions appropriately - Head Head exam: Present: atraumatic, normocephalic - Neck Neck exam general surgery: Present: supple, trachea midline - Respiratory Respiratory exam: Present: CTAB - Cardiovascular Cardiovascular exam: Present: RRR, +S1, +S2 - GI/Abdominal GI/Abdominal exam: Present: distended, normal bowel sounds, soft. Absent: tenderness - Extremities Exam Additional comments: +1 Bilateral lower extremity pitting edema. - Neurological Exam Neurological exam: Present: alert, oriented X3, no focal deficits - Psychiatric Psychiatric exam: Present: normal affect, normal mood - Skin Skin exam: Present: intact Additional comments: Bilateral lower extremity venous stasis present. skin is severely dry. Internal Medicine: Result - Labs CBC & Chem 7: 08/07/17 06:53 08/09/17 05:55 Labs: BMP 08/09/17 05:55 Sodium 138 Potassium 3.8 Chloride 103 Carbon Dioxide 30 H BUN 17 Creatinine 0.97 Glucose 99 Calcium 8.8 - ABG Interpretation ABG results: PT/INR, D-dimer PT 13.1 Seconds (9.4-12.1) H 08/06/17 16:47 Consult Discharge Plan - Plan Referrals: Sam Solozrano DO [Primary Care Provider] - <Wenceslao Desai - Last Filed: 08/09/17 16:02> Date of Encounter: 08/09/17 - Subjective Interval history: Other than history of present illness a 10 point review of systems is negative - Constitutional Vitals: Temp Pulse Resp BP Pulse Ox 98.0 F 88 16 101/66 93 08/09/17 15:51 08/09/17 15:51 08/09/17 15:51 08/09/17 15:51 08/09/17 15:51 Internal Medicine: Result - Labs CBC & Chem 7: 08/07/17 06:53 08/09/17 05:55 Labs: BMP 08/09/17 05:55 Sodium 138 Potassium 3.8 Chloride 103 Carbon Dioxide 30 H BUN 17 Creatinine 0.97 Glucose 99 Calcium 8.8 - ABG Interpretation ABG results: PT/INR, D-dimer PT 13.1 Seconds (9.4-12.1) H 08/06/17 16:47 - Attending Attestation I personally interviewed and examined this patient. I agree with the findings, assessment, and plan of Dr. Hilton, internal medicine resident. Patient is scheduled for podiatric surgery tomorrow. She does medically optimized from a preoperative standpoint for surgery. Also as outlined above.
--- NOTE | 2017-08-09 19:21 | Anesthesia Evaluation PreOp ---
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: Other (Blind Rt eye) Other Medical History: Diabetes Type II, Other (Morbid Obesity) Anesthesia History: No Prior Anesthetic Complications Alcohol Use: none Drug use: none Medications and Allergies Albuterol Sulfate [Ventolin Hfa] 2 puff IH Q4H PRN 08/06/17 [History] Ampicillin Trihydrate 500 mg PO Q6H 08/06/17 [History] Cholecalciferol (Vitamin D3) [Vitamin D] 2,000 unit PO DAILY 08/06/17 [History] Citalopram Hydrobromide [Celexa] 40 mg PO DAILY 08/06/17 [History] Cyclobenzaprine HCl 10 mg PO TID PRN 08/06/17 [History] Fluticasone Propionate Nasal [Flonase] 50 mcg NS DAILY 08/06/17 [History] Furosemide [Lasix] 20 mg PO DAILY PRN 08/06/17 [History] HYDROmorphone [Dilaudid] 2 mg PO Q12H 08/06/17 [History] Insulin Degludec [Tresiba Flextouch U-100] 50 unit SQ QPM 08/06/17 [History] Insulin LISPRO [Humalog Kwikpen U-100] 30 unit SQ QPM 08/06/17 [History] Lisinopril [Zestril] 20 mg PO DAILY 08/06/17 [History] Lovastatin [Lovastatin] 40 mg PO HS 08/06/17 [History] Oxymorphone HCl [Oxymorphone HCl ER] 5 mg PO DAILY 08/06/17 [History] Potassium Chloride [Klor-Con 10] 10 meq PO BID PRN 08/06/17 [History] Tamsulosin [Flomax] 0.4 mg PO DAILY 08/06/17 [History] Zolpidem [Ambien] 10 mg PO HS PRN 08/06/17 [History] 3 Allergy/AdvReac Type Severity Reaction Status Date / Time No Known Allergies Allergy Verified 05/17/15 12:48 - Meds/Allergy Pre-op Review Medications Reviewed: Yes Allergies Reviewed: Yes Beta Blockers on Current Med List: No Anesthesia Results - Labs 08/07/17 06:53 08/09/17 05:55 - Imaging EKG: report reviewed (SR) Additional studies: ECHO LVEF 60% 2018 Anesthesia Exam O2 Sat O2 Sat by Pulse Oximetry 93 O2 Sat by Pulse Oximetry 93 O2 Sat by Pulse Oximetry 93 O2 Sat by Pulse Oximetry 93 O2 Sat by Pulse Oximetry 93 O2 Sat by Pulse Oximetry 94 O2 Sat by Pulse Oximetry 95 O2 Sat by Pulse Oximetry 94 Vital Signs Temp Pulse Resp BP Pulse Ox 98.4 F 106 22 116/80 97 08/06/17 14:12 08/06/17 14:12 08/06/17 14:12 08/06/17 14:12 08/06/17 14:12 Height: 5'9 Weight: 342 lbs NPO (# of Hours): MN Pain Scale: 1 - HEENT Pupil (Motor): Abnormal (Blind Rt eye) Mallampati: III Teeth: Edentulous (no upper teeth) Oral Opening: Less than or equal to 3 - NURSE SUPERVISOR LOC: Oriented NURSE SUPERVISOR Motor: Normal RUE, Normal LUE, Normal RLE, Normal LLE, Normal Face NURSE SUPERVISOR Sensory: Normal: RUE, LUE, RLE, LLE, Face - Cardiac Rhythm: Regular Murmur: None JVD: No Carotid Bruit: No - Pulmonary Breath Sounds: bilateral Clear Respiratory Effort: Symmetrical Anesthesia Assess/Plan ASA Score: 3 (MO HTN COPD DARCI) Modified Girard Scale for Level of Consciousness: Cooperative, oriented, and tranquil Anesthetic Plan: General, Regional Monitoring Plan: Standard Monitors Recovery Plan: PACU (Discussed GA and RA, agrees to proceed)
--- NOTE | 2017-08-09 20:40 | Electrocardiograph Report ---
[place] [id number] Test Date: 2017-08-06 Pat Name: Antione Cannon Department: 103 Room: [facility] Gender: M [employer] Scout: CARLOS ALBERTO : 1955 Requested By: Kehinde Daniels Order Number: [id number] Reading MD: Rachael Sherwood Measurements Intervals [place] Rate: 99 P: 31 [place]: 155 QRS: 31 QRSD: 90 T: 48 QT: 274 QTc: 330 Interpretive Statements SINUS RHYTHM NONSPECIFIC ST-WAVE ABNORMALITY Electronically Signed On 08-09-2017 20:38:50 EST by Rachael Sherwood
[2017-08-09] MEDS: Insulin DETEMIR 100 UNIT/ML X5UNITS SQ SCH (21:55)
[2017-08-10 01:19] LABS: Immature Granulocytes % 0.1 % (0-4)
[2017-08-10 01:21] LABS: Basophils % 0.6 %; Eosinophils # 0.1 K/mcL (0.0-0.6); Eosinophils % 2.1 %; Hematocrit 39.5 % (37.5-50.1); Hemoglobin 13.1 g/dL (12.9-16.9); Immature Platelets 3.4 % (1.1-6.1); Lymphocytes % 43.4 %; Mean Corpuscular HGB Conc 33.2 g/dL (31.6-35.5); Mean Corpuscular Hemoglobin 31.6 pg (28.0-33.3); Mean Corpuscular Volume 95.2 fL (83.0-100.0); Mean Platelet Volume 10.7 fL (9.4-12.4); Monocytes # 0.7 K/mcL (0.0-1.3); Monocytes % 9.8 %; Nucleated Red Blood Cells 0.6 /100 WBC (0); Red Blood Count 4.15 M/mcL (4.19-5.50); Red Cell Distribution Width 15.5 % (11.5-14.5)
[2017-08-10 01:27] LABS: Platelet Count 92 K/mcL (140-400)
[2017-08-10 01:46] LABS: BUN/Creatinine Ratio 24 (6-26); Blood Urea Nitrogen 20 mg/dL (8-23); Calcium 8.9 mg/dL (8.6-10.3); Carbon Dioxide 28 mEq/L (23-29); Chloride 104 mEq/L (98-107); Glucose 123 mg/dL (70-105); Osmolality,Calculated 288 (280-300); Potassium 4.2 mEq/L (3.5-5.1); Sodium 137 mEq/L (136-145); eGFR For Non-African Americans > 60 (> 60)
[2017-08-10] MEDS: *HR* Heparin 5,000 UNIT/ML VIAL SQ SCH ×2 (05:42→17:17)
[2017-08-10] MEDS: Insulin LISPRO 300 UNITS/3 ML VIAL SQ SCH ×3 (07:23→23:48)
[2017-08-10] MEDS: Fluticasone Propionate Nasal 50 MCG/SPRAY BOTTLE NS SCH (07:24)
[2017-08-10] MEDS: Cholecalciferol (D-3) 1,000 UNIT TABLET PO SCH (07:24)
[2017-08-10] MEDS: Lisinopril 20 MG TABLET PO SCH (07:24)
--- NOTE | 2017-08-10 08:36 | Internal Med Progress Note ---
<YobaniJaviisidra - Last Filed: 08/10/17 08:34> Date of Encounter: 08/10/17 Time of Encounter: 08:34 - Assessment and plan (1) Bimalleolar fracture of left ankle Current Visit: Yes Status: Acute Assessment and plan: Patient arrived to the hospital after a fall at home. X-ray of the left ankle showed subacute fractures of distal tibia and fibula with tibiotalar dislocation x-ray of the left foot showed chronic 2nd and 3rd toe fractures with posterior tibiotalar dislocation. Podiatry has ordered lower extremity AMENA, which has been within normal limits venous duplex of left lower extremity negative for DVT. Preliminary carotid duplex study showed non-stenotic plaque in the right ICA, left ICA within normal limits. Orthostatic vitals negative plan: consult to PT/OT appreciate podiatry recs NPO for surgery with podiatry today Patient understands risks and benefits of surgery. He refuses to go to SNF after his surgery, and states that he wishes to go home. Qualifiers: Encounter type: initial encounter Fracture type: closed Qualified Code(s) : S82.842A - Displaced bimalleolar fracture of left lower leg, initial encounter for closed fracture (2) Fall Current Visit: Yes Status: Acute Assessment and plan: Same as above. Qualifiers: Encounter type: sequela Qualified Code(s): W19.XXXS - Unspecified fall, sequela (3) Lower extremity edema Current Visit: Yes Status: Acute Assessment and plan: Patient takes Lasix at home PRN urinanalysis showed no evidence of proteinuria echocardiogram showed EF 60%, mild left ventricular diastolic dysfunction, or more right ventricular structure and function, no valvular dysfunction, no pulmonary hypertension Plan: Doubled patient's home dose of oral Lasix to 40 PO mg daily. (4) Diastolic CHF Current Visit: Yes Status: Chronic Assessment and plan: Plan as above Qualifiers: Heart failure chronicity: chronic Qualified Code(s): I50.32 - Chronic diastolic (congestive) heart failure (5) HTN (hypertension) Current Visit: Yes Status: Acute Assessment and plan: Continue medications blood pressures are stable at this time. Qualifiers: Hypertension type: essential hypertension Qualified Code(s): I10 - Essential (primary) hypertension (6) Tobacco abuse Current Visit: Yes Status: Acute Assessment and plan: Smoking cessation advice. Nicotine patch PRN (7) DARCI (obstructive sleep apnea) Current Visit: Yes Status: Acute Assessment and plan: Patient does have CPAP shooting at home that does not work. He refused CPAP in the hospital. (8) Diabetes mellitus Current Visit: Yes Status: Acute Assessment and plan: Diabetic diet basal with low-dose sliding scale insulin a [facility] Accu checks. sugars well-controlled at this time. 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 Patient denies nausea, vomiting, diarrhea, fever, chills, chest pain, shortness of breath, he denies any new problems today. - Constitutional Vitals: Temp Pulse Resp BP Pulse Ox 97.5 F L 79 16 104/60 94 08/10/17 07:05 08/10/17 07:05 08/10/17 07:05 08/10/17 07:05 08/10/17 07:05 General appearance: Present: A&O X 3, pleasant, no acute distress, answers questions appropriately Exam: Morbidly obese - Head Head exam: Present: atraumatic, normocephalic - Neck Neck exam general surgery: Present: supple, trachea midline - Respiratory Respiratory exam: Present: CTAB - Cardiovascular Cardiovascular exam: Present: RRR, +S1, +S2 - GI/Abdominal GI/Abdominal exam: Present: normal bowel sounds, soft. Absent: distended, tenderness - Extremities Exam Extremities exam: Absent: cyanotic Additional comments: Non-pitting edema present and bilateral lower extremities, venous stasis present , dry skin, areas of dark pigmentation present as well. - Neurological Exam Neurological exam: Present: alert, oriented X3, no focal deficits - Psychiatric Psychiatric exam: Present: normal affect, normal mood Internal Medicine: Result - Labs CBC & Chem 7: 08/10/17 01:09 08/10/17 01:09 Labs: Short CBC 08/10/17 Range/Units 01:09 WBC 6.8 (4.3-11.1) K/mcL Hgb 13.1 (12.9-16.9) g/dL Hct 39.5 (37.5-50.1) % Plt Count 92 L (140-400) K/mcL Neutrophils # 3.0 (1.6-8.9) K/mcL BMP 08/10/17 01:09 Sodium 137 Potassium 4.2 Chloride 104 Carbon Dioxide 28 BUN 20 Creatinine 0.84 Glucose 123 H Calcium 8.9 - ABG Interpretation ABG results: PT/INR, D-dimer PT 13.1 Seconds (9.4-12.1) H 08/06/17 16:47 Consult Discharge Plan - Plan Referrals: Sam Solorzano DO [Primary Care Provider] - <Wenceslao Desai - Last Filed: 08/10/17 13:35> Date of Encounter: 08/10/17 - Subjective Interval history: Other than HPI a 10 pt ROS is negative, - Constitutional Vitals: Temp Pulse Resp BP Pulse Ox 97.7 F 86 18 99/68 98 08/10/17 10:52 08/10/17 12:35 08/10/17 12:35 08/10/17 12:35 08/10/17 12:35 Internal Medicine: Result - Labs CBC & Chem 7: 08/10/17 01:09 08/10/17 01:09 Labs: Short CBC 08/10/17 Range/Units 01:09 WBC 6.8 (4.3-11.1) K/mcL Hgb 13.1 (12.9-16.9) g/dL Hct 39.5 (37.5-50.1) % Plt Count 92 L (140-400) K/mcL Neutrophils # 3.0 (1.6-8.9) K/mcL BMP 08/10/17 01:09 Sodium 137 Potassium 4.2 Chloride 104 Carbon Dioxide 28 BUN 20 Creatinine 0.84 Glucose 123 H Calcium 8.9 - ABG Interpretation ABG results: PT/INR, D-dimer PT 13.1 Seconds (9.4-12.1) H 08/06/17 16:47 - Attending Attestation I personally interviewed and examined this patient. I agree with the findings, assessment, and plan of Dr. Hilton, internal medicine resident. Patient is stable. Awaiting surgery this afternoon. He does have bilateral lower extremity edema which is chronic, his known diastolic CHF appears to be compensated. Blood pressure remained under control. We will closely monitor. All else as outlined above.
[2017-08-10] MEDS ORDERED: Furosemide 20 MG TABLET PO SCH (09:00)
[2017-08-10] MEDS ORDERED: *HR* Propofol 200 MG/20 ML VIAL IVP ONE ×2 (12:09→12:13)
[2017-08-10] MEDS ORDERED: Lidocaine -MPF 2% 2 ML VIAL ONE ×2 (12:09→12:10)
[2017-08-10] MEDS ORDERED: Dexamethasone 4 MG/ML VIAL ONE ×2 (12:09→12:10)
[2017-08-10] MEDS ORDERED: *HR* FentaNYL (PF) 100 MCG/2 ML VIAL ONE ×2 (12:09→15:48)
[2017-08-10] MEDS ORDERED: Ondansetron 4 MG/2 ML VIAL ONE (12:09)
[2017-08-10] MEDS ORDERED: *HR* Midazolam HCl 2 MG/2 ML VIAL ONE (12:09)
[2017-08-10] MEDS ORDERED: *HR* Rocuronium Bromide 50 MG/5 ML VIAL ONE (12:12)
[2017-08-10] MEDS ORDERED: *HR* Succinylcholine 200 MG/10 ML VIAL IVP ONE (12:12)
[2017-08-10] MEDS ORDERED: Lidocaine -MPF 4% 5 ML AMPUL ONE (12:12)
[2017-08-10] MEDS ORDERED: *HR* Ropivacaine/PF 0.5% 20 ML VIAL ONE (12:12)
[2017-08-10] MEDS ORDERED: Bupivacaine/Clonidine Syringe 1 EACH SYRINGE ONE (12:17)
[2017-08-10] MEDS ORDERED: Lidocaine/EPI 1:100k 1% 50 ML VIAL INFILT ONE (13:08)
[2017-08-10] MEDS ORDERED: Ketamine *HR* 500 MG/10 ML MDV ONE (13:40)
[2017-08-10] MEDS ORDERED: *HR* OxyCODONE/APAP 5/325 TABLET PO PRN (13:58)
[2017-08-10] MEDS ORDERED: Ondansetron 4 MG/2 ML VIAL IVP ONE ×2 (13:58→16:42)
[2017-08-10] MEDS ORDERED: Albuterol 2.5 MG/3 ML NEBULIZER IH ONE (13:58)
[2017-08-10] MEDS ORDERED: Naloxone 0.4 MG/ML INJ IVP PRN ×3 (13:58→16:42)
--- NOTE | 2017-08-10 13:58 | Anesthesia Procedures ---
Date of Encounter: 08/10/17 Time of Encounter: 13:56 Procedures: Anesthesia - Nerve Block Procedure Date: 08/10/17 Time: 13:56 Surgical Procedure: left ankle fusion Checklist: Correct Patient Identifier, Correct procedure, History checked Correct side: Left Blood Thinner: No Monitor Applied: EKG, BP, Pulse Oximetry Supplemental Oxygen via Nasal Cannula (L/min): 2 Sedation: Versed (mg): 2 Sedation: Fentanyl (mcg): 100 Indication: Post Op Analgesia (request per dr ramey for post op pain control) Block Type: Popliteal, Other (adductor canal) Catheter placed: No Sterile Technique: Yes Ultrasound used: Yes Anatomy identified: Yes Visual spread of Local: Yes Neuro Stimulation: Yes Nerve Stimulator Range: 0.2 - 0.4 mA Blood on Needle Aspiration: No Smooth Injection of Local: Yes Pain with Injection of Local: No Prep: Chlorhexadine Needle: 21 x 100 mm Stimuplex Local: 0.25% Bupivicaine w/Clonidine 20 mcg/cc (for adductor canal 20ml ), Ropivacaine (for popliteal 30 ml ) Volume (cc): 40 Number of Attempts: 1 Complications: None/effective block Vitals: Vital Signs/O2 Sat/Glucose, Most Current Temp Pulse Resp BP Pulse Ox 08/10/17 12:35 86 18 99/68 98 08/10/17 12:20 83 18 118/86 99 08/10/17 10:52 97.7 F 86 16 133/80 95 Comments: pt tolerated procedure well. no complications. vss.
[2017-08-10] MEDS ORDERED: Ringers Solution, Lactated 1,000 ML IVC SCH ×2 (14:00→16:42)
[2017-08-10] MEDS: MORPHINE SUL Oral CONC 10 MG/0.5 ML ORAL.SYG SL PRN ×2 (15:55→16:05)
--- NOTE | 2017-08-10 15:55 | Operative Note ---
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 Arthrocell and PRP Complications: none Anesthesia: GETA Local Anesthetics: 1% Lidocaine HCL with Epinephrine 1:200,000 SubQ (cc), Other (popliteal block by anesthesia) Surgeon: Emery Wells Was there an assistant account manager present: No Estimated blood loss (cc): 100 Tourniquet Time (Minutes): 120 Specimen: no Condition: stable Disposition: PACU Procedure in Detail: 61 year old diabetic male with chronic ankle fracture dislocation likely sustained about 2 months ago when he remembers falling and then being unable to walk on his left lower extremity since that time. His weight is around 400 lbs and he was admitted to the hospital unable to ambulate on the left lower extremity and found to have a dislocated and fractured left ankle with bone nonunion. He has an A1c of 5.6%. With his large body habitus unstable ankle and deformity the decision was made to proceed with an ankle fusion on the left lower extremity. ABIs/PVR were within normal limits on the left. He has chronic lymphedema of his extremities. Nature of the procedures was discussed at length with the patient as well as the potential risks versus benefits complications and consequences of the procedures. Typical course of recovery of nonweightbearing for 3 months possibly longer following the procedure was also discussed with the patient. He is persistently refused to go to an extended care facility (ECF). Patient made aware that he is high risk for complications and possible limb loss. Patient promised smoking cessation if he was going to have this surgery. All of his questions were answered and informed consent was signed. Patient was given a popliteal block by anesthesia. The patient was brought into the operating room and placed on the operating room table in the supine position. Following induction of general anesthesia the patient's left lower extremity was scrubbed prepped and draped in the usual sterile fashion a tourniquet was applied to the left lower extremity and inflated to 300 mmHg. Following procedures then began. Left ankle fusion, synovectomy and bone graft major. Attention was directed to the lateral aspect of the patient's left ankle were #15 blade was used to make an incision over the fibula. Blunt dissection was carried out taking care to avoid all neurovascular tendinous structures. All traversing veins were divided and ligated using the Bovie or Vicryl suture. Once down to the level of the periosteum of the fibula was incised exposing the displaced nonunion fracture of the fibula bone. The soft tissue was freed from the distal aspect of the fibula. The sagittal saw was used to cut the fibula bone. The fibula was removed from the lateral ankle. The fibula bone harvested was then prepared for bone graft used removing cortical bone from the fibula and gather the inner cancellous bone which was later used for implantation into the ankle fusion zone. With the fibula bone graft havested, the dislocated talus from the ankle mortise was visualized in the lateral ankle. Hypertrophied synovial tissue surrounding the ankle joint anteroior and laterally was then removed. The talus was then able to be relocated into the ankle mortise. A distractor was put in place and good visualization across the entire ankle joint surfaces was achieved. The cartilage on the surface of the talus was noted to be degenerative as was the cartilage on the tibial planfond. The bone curettes, osteotomes, flexible chisel and rotary bur were used to remove cartilage from both the talar dome and tibial plafond and down to bleeding cancellous bone. A K-wire was used to fenestrate the bone on both surfaces. An osteotome was used to fish scale the area. Arthrocell mixed with PRP was then placed across the fusion surfaces. The ankle joint was then temporarily pinned into neutral position and in alignment with the knee. A lateral locking ankle fusion plate was then applied and locked into position distally then screw placed in the proximal oblong compression hold and then the homerun screw hole with a cancellous screw. locking screws were also placed proximal to the fusion zone. Using standard technique a 6.7mm Arthrex lag cannulated screw was thrown across the ankle joint from medial to lateral. Excellent compression and apposition of the fusion zone was present clinically and confirmed on c-arm. The 2nd digit was in alignment with the knee and in neutral position. Good position, alignment and placement of the hardware confirmed on c-arm. The tourniquet was deflated and no active bleeding was present. All visible veins with ooze of blood were tied off and A DUY drain was placed. Deep and subcutaneous tissues closed with 0 vicryl and skin closed with jasper. Postoperative bandaging included Xeroform, 4 x 4 gauze abdominal pad Kerlix and the patient was placed in an adequately padded posterior splint and had strict instructions for nonweightbearing on the left lower extremity. The patient tolerated the anesthesia and the procedure well and was escorted to the recovery room with vital signs stable and vascular status intact to the left foot. Elevation. Return to the floor where he will be monitored.
[2017-08-10] MEDS ORDERED: *HR* OxyCODONE/APAP 10/325 TABLET PO PRN (15:56)
[2017-08-10] MEDS ORDERED: *HR* OxyCODONE Immed Rel 5 MG TABLET PO PRN (15:57)
[2017-08-10] MEDS ORDERED: Acetaminophen IV 1,000 MG/100 ML INFUS..BTL ONE (15:59)
[2017-08-10] MEDS: *HR* Meperidine 25 MG/ML SYRINGE IVP PRN ×2 (16:01→16:11)
[2017-08-10] MEDS ORDERED: ceFAZolin 3,000 MG in Water for inj. (sterile) 30 ML IVP ONE (16:30)
--- NOTE | 2017-08-10 16:31 | Anesthesia Evaluation Post Op ---
Date of Encounter: 08/10/17 Time of Encounter: 16:30 - Vital Signs Vital Signs: Vital Signs/O2 Sat/Glucose, Most Current Temp Pulse Resp BP Pulse Ox 08/10/17 16:10 93 15 151/78 95 08/10/17 16:00 97 15 146/84 96 08/10/17 15:50 97.9 F 97 16 142/80 96 08/10/17 12:35 86 18 99/68 98 - Lungs Lungs: Clear Ascult./Percussion - Airway Airway: Non-obstructed - Cardiovascular Regular Rate, Baseline Rhythm - Mental Status Mental Status: Alert & Oriented, Answers Appropriately - Pain Pain Scale: 8 (pt has received all available options for pain control ( including block). ) Pain Scale used: Numeric (1 - 10) - Nausea Vomiting Nausea Vomiting: Not Present - Hydration Hydration: NPO, Able to void - Discharge PostOp Status: Transfer Patient to floor
[2017-08-10] MEDS ORDERED: *HR* Dextrose 50 % in Water (Syg) 50 ML SYRINGE IVP PRN (16:42)
[2017-08-10] MEDS ORDERED: D5% in Water 1,000 ML IVC PRN (16:42)
[2017-08-10] MEDS ORDERED: MORPHINE SUL Oral CONC 10 MG/0.5 ML ORAL.SYG SL PRN (16:42)
[2017-08-10] MEDS ORDERED: Dextrose Gel 15 GM/37.5 ML TUBE PO PRN ×2 (16:42)
[2017-08-10] MEDS ORDERED: Acetaminophen 325 MG TABLET PO PRN (16:42)
[2017-08-10] MEDS: *HR* OxyCODONE/APAP 10/325 TABLET PO PRN (17:58)
[2017-08-10] MEDS: CeFAZolin Premix DUPLEX 2,000 MG/50 ML BAG IVPB SCH (20:50)
[2017-08-10] MEDS: Insulin DETEMIR 100 UNIT/ML X5UNITS SQ SCH (23:47)
[2017-08-11 02:02] LABS: Basophils % 0.1 %; Hemoglobin 12.6 g/dL (12.9-16.9); Mean Platelet Volume 10.8 fL (9.4-12.4)
[2017-08-11 02:04] LABS: Hematocrit 38.3 % (37.5-50.1); Immature Granulocytes % 0.5 % (0-4); Immature Platelets 3.9 % (1.1-6.1); Lymphocytes # 1.3 K/mcL (0.6-4.6); Lymphocytes % 15.5 %; Mean Corpuscular HGB Conc 32.9 g/dL (31.6-35.5); Mean Corpuscular Hemoglobin 31.4 pg (28.0-33.3); Mean Corpuscular Volume 95.5 fL (83.0-100.0); Monocytes # 0.4 K/mcL (0.0-1.3); Monocytes % 4.9 %; Neutrophils # 6.8 K/mcL (1.6-8.9); Red Blood Count 4.01 M/mcL (4.19-5.50); Red Cell Distribution Width 15.1 % (11.5-14.5)
[2017-08-11 02:06] LABS: Platelet Count 82 K/mcL (140-400)
[2017-08-11] MEDS: CeFAZolin Premix DUPLEX 2,000 MG/50 ML BAG IVPB SCH ×3 (04:45→21:44)
[2017-08-11] MEDS: *HR* Heparin 5,000 UNIT/ML VIAL SQ SCH ×2 (04:45→17:12)
[2017-08-11] MEDS: Fluticasone Propionate Nasal 50 MCG/SPRAY BOTTLE NS SCH (07:50)
[2017-08-11] MEDS: Cholecalciferol (D-3) 1,000 UNIT TABLET PO SCH (07:50)
[2017-08-11] MEDS: Furosemide 20 MG TABLET PO SCH (07:50)
[2017-08-11] MEDS: Lisinopril 20 MG TABLET PO SCH (07:50)
[2017-08-11] MEDS: Insulin LISPRO 300 UNITS/3 ML VIAL SQ SCH ×4 (07:50→21:45)
--- NOTE | 2017-08-11 10:56 | Internal Med Progress Note ---
<Catina Mckay - Last Filed: 08/11/17 10:53> Date of Encounter: 08/11/17 Time of Encounter: 09:10 - Assessment and plan (1) Bimalleolar fracture of left ankle Current Visit: Yes Status: Acute Assessment and plan: Patient arrived to the hospital after a fall at home. X-ray of the left ankle showed subacute fractures of distal tibia and fibula with tibiotalar dislocation x-ray of the left foot showed chronic 2nd and 3rd toe fractures with posterior tibiotalar dislocation. Podiatry has ordered lower extremity AMENA, which has been within normal limits venous duplex of left lower extremity negative for DVT. Preliminary carotid duplex study showed non-stenotic plaque in the right ICA, left ICA within normal limits. Orthostatic vitals negative POD# 1 of left ankle fusion plan: -consult to PT/OT - pain control: Percocet 10/325 Q4hr - Patient understands risks and benefits of surgery. He refuses to go to SNF after his surgery, and states that he wishes to go home. Qualifiers: Encounter type: initial encounter Fracture type: closed Qualified Code(s) : S82.842A - Displaced bimalleolar fracture of left lower leg, initial encounter for closed fracture (2) Diabetes mellitus Current Visit: Yes Status: Acute Assessment and plan: Diabetic diet basal with low-dose sliding scale insulin a [facility] Accu checks. sugars well-controlled at this time. 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 Qualifiers: Hypertension type: essential hypertension Qualified Code(s): I10 - Essential (primary) hypertension (4) DARCI (obstructive sleep apnea) Current Visit: Yes Status: Acute Assessment and plan: Patient does have CPAP shooting at home that does not work. He refused CPAP in the hospital. (5) DVT prophylaxis Current Visit: Yes Status: Acute Assessment and plan: Heparin SQ (6) Fall Current Visit: Yes Status: Acute Assessment and plan: Same as above. Qualifiers: Encounter type: sequela Qualified Code(s): W19.XXXS - Unspecified fall, sequela (7) Tobacco abuse Current Visit: Yes Status: Acute Assessment and plan: Smoking cessation advice. Nicotine patch PRN (8) Lower extremity edema Current Visit: Yes Status: Acute Assessment and plan: Patient takes Lasix at home PRN urinanalysis showed no evidence of proteinuria echocardiogram showed EF 60%, mild left ventricular diastolic dysfunction, or more right ventricular structure and function, no valvular dysfunction, no pulmonary hypertension Plan: Doubled patient's home dose of oral Lasix to 40 PO mg daily. (9) Diastolic CHF Current Visit: Yes Status: Chronic Assessment and plan: Plan as above Qualifiers: Heart failure chronicity: chronic Qualified Code(s): I50.32 - Chronic diastolic (congestive) heart failure - Subjective Interval history: Mr. Cannon is a 65M admitted for fall at home with left ankle subacute who is POD#1 left ankle fusion. Patient states he is feeling well today. Pain is well-controlled. Patient desires to go home. Patient denies dysphagia, shortness of breath, dizziness, abdominal pain. A 10 point review of systems was negative. - Constitutional Vitals: Temp Pulse Resp BP Pulse Ox 97.8 F 91 17 123/72 94 08/11/17 07:02 08/11/17 07:02 08/11/17 07:02 08/11/17 07:02 08/11/17 07:02 General appearance: Present: A&O X 3, pleasant, no acute distress, answers questions appropriately Exam: Constitutional: Alert, in no acute distress, well nourished Head: Normocephalic, atraumatic, Heart: Normal, regular rate and rhythm, no murmurs Lungs: Clear to auscultation, no wheezes, rales, or rhonchi Abdomen: Soft, nondistended, nontender, bowel sounds present and normal, no guarding or rigidity. Extremities: left ankle and calf dressing clean with serosanginous fluid in drainage bulb, able to move toes, no signs of infection around dressing, venous stasis present, dry skin,radial pulse +2/4capillary refill <2sec. Skin: Skin warm and dry, no lesions, nno jaundice Neurologic: Cranial nerves II through XII grossly intact, no focal deficits, strength 5/5 in all extremities Psych: Cooperative with exam, good eye contact, cognitive function intact, judgment good insight good, speech clear, thought process logical, and goal directed Internal Medicine: Result - Labs CBC & Chem 7: 08/11/17 01:37 08/10/17 01:09 Labs: Short CBC 08/11/17 Range/Units 01:37 WBC 8.6 (4.3-11.1) K/mcL Hgb 12.6 L (12.9-16.9) g/dL Hct 38.3 (37.5-50.1) % Plt Count 82 L (140-400) K/mcL Neutrophils # 6.8 (1.6-8.9) K/mcL - ABG Interpretation ABG results: PT/INR, D-dimer PT 13.1 Seconds (9.4-12.1) H 08/06/17 16:47 - Impressions Impressions Ankle X-Ray 08/10/17 13:13 IMPRESSION: Intraprocedural fluoroscopic spot images as above. See separate procedure report for more information. D/ / Bandar Trevino MD / Bandar Trevino MD Interpreting Provider: Bandar Trevino MD Fluoroscopy 08/10/17 13:13 IMPRESSION: Intraprocedural fluoroscopic spot images as above. See separate procedure report for more information. D/ / Bandar Trevino MD / Bandar Trevino MD Interpreting Provider: Bandar Trevino MD - VTE Documentation of Mechanical Device: Intermittent pneumatic compression device Consult Discharge Plan - Plan Referrals: Sam Solorzano, DO [Primary Care Provider] - <Wenceslao Desai - Last Filed: 08/11/17 16:07> Date of Encounter: 08/11/17 - Constitutional Vitals: Temp Pulse Resp BP Pulse Ox 98.2 F 97 16 101/63 95 08/11/17 15:25 08/11/17 15:25 08/11/17 15:25 08/11/17 15:25 08/11/17 15:25 Internal Medicine: Result - Labs CBC & Chem 7: 08/11/17 01:37 08/10/17 01:09 Labs: Short CBC 08/11/17 Range/Units 01:37 WBC 8.6 (4.3-11.1) K/mcL Hgb 12.6 L (12.9-16.9) g/dL Hct 38.3 (37.5-50.1) % Plt Count 82 L (140-400) K/mcL Neutrophils # 6.8 (1.6-8.9) K/mcL - ABG Interpretation ABG results: PT/INR, D-dimer PT 13.1 Seconds (9.4-12.1) H 08/06/17 16:47 - Attending Attestation I performed an independent interview and exam of this patient. I agree with the findings, assessment, and plan of Dr. Mckay, internal medicine environmental health and safety intern. Patient is currently postop day 1 left ankle fusion, synovectomy and bone grafting. He is doing fairly well. Pain is reasonably well controlled. Patient otherwise is stable. Blood sugar control has been good. Blood pressure remains under good control. He does have a history of diastolic CHF, but at this time appears compensated. He will be discharged when appropriate by podiatry. All else as above.
[2017-08-11] MEDS: *HR* OxyCODONE/APAP 10/325 TABLET PO PRN ×2 (13:47→21:43)
--- NOTE | 2017-08-11 13:59 | Podiatry Progress Note ---
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 pain is controlled today. discussed importance of remaining non-weight bearing to the left lower extremity. discussed going to the [facility] and he refuses to go stating he is going home as he will be fine. I did tell him he increase the risks of a fall or complication and failure of surgery by refusing this option which was offered to him to help him remain non-weight bearing and assist him. discussed imperative that he not smoke otherwise chance of complications we had discussed will dramatically increase. Discussed he could still lose his leg or the bone not heal. I did write him a prescription for a bariactic wheelchair with foot rests. leave drain in place for now, possible removal Sunday or Sunday. he will need homecare and physical therapy at home. he is not to do physical therapy on the ankle but he can be assisted with gait training and transfers to aid him in being non-weight bearing on the left lower extremity. recommend he be discharged on xarelto 10mg or lovenox 40mg subq for DVT ppx. he will need follow up with me in my office 1 week from the time of discharge. Subjective Interval history: s/p left ankle fusion, synovectomy and bone graft major. I walked in the room and he stated "this is the best surgery I have ever had." he says last night he was in pain and his left ankle hurt but today his left ankle has not hurt. he did get up with physical therapy. he says he wants to go home today. he had about 50cc of bloody drainage in the drain over night. he denies feeling like he experienced f/c/n/v/sob/cp. Objective - Vital Signs Vital Signs: Vital Signs Temp Pulse Resp BP Pulse Ox 08/11/17 11:18 98.1 F 95 18 111/66 94 08/11/17 07:02 97.8 F 91 17 123/72 94 08/11/17 04:53 97.7 F 96 17 88/59 92 08/11/17 00:18 98.0 F 118 18 134/72 96 08/10/17 19:20 99.1 F 103 17 134/85 97 08/10/17 17:59 102 16 127/84 98 08/10/17 17:37 98.2 F 101 16 156/96 97 08/10/17 17:05 98.7 F 96 16 139/77 96 08/10/17 16:40 98.4 F 94 19 154/94 95 08/10/17 16:30 92 18 146/93 96 08/10/17 16:20 98.4 F 96 17 164/85 95 08/10/17 16:10 93 15 151/78 95 08/10/17 16:00 97 15 146/84 96 08/10/17 15:50 97.9 F 97 16 142/80 96 Intake and Output 08/10/17 08/11/17 08/11/17 23:59 07:59 15:59 Intake Total 800 / 800 650 / 650 Output Total 925 / 925 875 / 875 975 / 975 Balance -125 / -125 -225 / -225 -975 / -975 Intake: IV Fluids 50 / 50 50 / 50 Ancef Premix DUPLEX 2,000 mg In 50 / 50 50 / 50 50 ml @ 100 mls/hr IVPB Q8H [facility] Rx#:[id number] Oral 750 / 750 600 / 600 Output: Urine 675 / 675 800 / 800 900 / 900 Wound Drainage 250 / 250 75 / 75 75 / 75 Left Ankle 175 / 175 75 / 75 75 / 75 Other: Blood Glucose* 294 180 197 - Exam Exam: well developed obese male in no acute distress no strikethrough on bandage. digits left foot are warm to touch. he can flex and extend digits of the left foot. sensation intact to touch. - Lab Result Diagrams: 08/11/17 01:37 08/10/17 01:09 Labs: Abnormal lab results RBC 4.01 M/mcL (4.19-5.50) L 08/11/17 01:37 Hgb 12.6 g/dL (12.9-16.9) L 08/11/17 01:37 RDW 15.1 % (11.5-14.5) H 08/11/17 01:37 Plt Count 82 K/mcL (140-400) L 08/11/17 01:37 Nucleated RBCs/100 WBC 0.6 /100 WBC (0) H 08/10/17 01:09 PT 13.1 Seconds (9.4-12.1) H 08/06/17 16:47 Glucose 123 mg/dL (70-105) H 08/10/17 01:09 POC Glucose 197 (58-89) H 08/11/17 11:17 - VTE Documentation of Mechanical Device: Intermittent pneumatic compression device Consult Discharge Plan - Plan Referrals: Sam Solorzano DO [Primary Care Provider] -
[2017-08-11] MEDS: Insulin DETEMIR 100 UNIT/ML X5UNITS SQ SCH (21:44)
[2017-08-12] MEDS: CeFAZolin Premix DUPLEX 2,000 MG/50 ML BAG IVPB SCH ×3 (04:16→21:13)
[2017-08-12] MEDS: *HR* OxyCODONE/APAP 10/325 TABLET PO PRN ×4 (04:16→21:13)
[2017-08-12] MEDS: *HR* Heparin 5,000 UNIT/ML VIAL SQ SCH (04:17)
[2017-08-12] MEDS: Insulin LISPRO 300 UNITS/3 ML VIAL SQ SCH ×4 (08:01→21:14)
[2017-08-12] MEDS: Cholecalciferol (D-3) 1,000 UNIT TABLET PO SCH (08:47)
[2017-08-12] MEDS: Lisinopril 20 MG TABLET PO SCH (08:47)
[2017-08-12] MEDS: Fluticasone Propionate Nasal 50 MCG/SPRAY BOTTLE NS SCH (08:48)
[2017-08-12] MEDS: Furosemide 20 MG TABLET PO SCH (08:50)
--- NOTE | 2017-08-12 09:54 | Discharge Summary ---
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: with laborer marine terminal use Qualified Code(s): E11.9 - Type 2 diabetes mellitus without complications ; Z79.4 - prison (current) use of insulin; Z79.4 - prison (current) use of insulin; Z79.4 - manager intermediate (current) use of insulin; Z79.4 - prison ( current) use of insulin (3) HTN (hypertension) Priority: Secondary Status: Acute Qualifiers: Hypertension type: essential hypertension Qualified Code(s): I10 - Essential (primary) hypertension (4) DARCI (obstructive sleep apnea) Priority: Secondary Status: Acute (5) DVT prophylaxis Priority: Secondary Status: Acute (6) Fall Priority: Secondary Status: Acute Qualifiers: Encounter type: sequela Qualified Code(s): W19.XXXS - Unspecified fall, sequela (7) Tobacco abuse Priority: Secondary Status: Acute (8) Lower extremity edema Priority: Secondary Status: Acute (9) Diastolic CHF Priority: Secondary Status: Chronic Qualifiers: Heart failure chronicity: chronic Qualified Code(s): I50.32 - Chronic diastolic (congestive) heart failure Hospital course: Mr. Cannon is a 61 year old male - Time Spent with Patient Total time spent providing and/or coordinating discharge services: - Discharge Medications Home Medications: Albuterol Sulfate [Ventolin Hfa] 2 puff IH Q4H PRN 08/06/17 [History] Ampicillin Trihydrate 500 mg PO Q6H 08/06/17 [History] Cholecalciferol (Vitamin D3) [Vitamin D] 2,000 unit PO DAILY 08/06/17 [History] Citalopram Hydrobromide [Celexa] 40 mg PO DAILY 08/06/17 [History] Cyclobenzaprine HCl 10 mg PO TID PRN 08/06/17 [History] Fluticasone Propionate Nasal [Flonase] 50 mcg NS DAILY 08/06/17 [History] Furosemide [Lasix] 20 mg PO DAILY PRN 08/06/17 [History] HYDROmorphone [Dilaudid] 2 mg PO Q12H 08/06/17 [History] Insulin Degludec [Tresiba Flextouch U-100] 50 unit SQ QPM 08/06/17 [History] Insulin LISPRO [Humalog Kwikpen U-100] 30 unit SQ QPM 08/06/17 [History] Lisinopril [Zestril] 20 mg PO DAILY 08/06/17 [History] Lovastatin 40 mg PO HS 08/06/17 [History] Oxymorphone HCl [Oxymorphone HCl ER] 5 mg PO DAILY 08/06/17 [History] Potassium Chloride [Klor-Con 10] 10 meq PO BID PRN 08/06/17 [History] Tamsulosin [Flomax] 0.4 mg PO DAILY 08/06/17 [History] Zolpidem [Ambien] 10 mg PO HS PRN 08/06/17 [History] Nicotine Patch [Nicoderm] 7 mg TD DAILY PRN patch.td24 08/12/17 [Rx] Allergies/Adverse Reactions: 3 Allergy/AdvReac Type Severity Reaction Status Date / Time No Known Allergies Allergy Verified 05/17/15 12:48 Date of admission: 08/06/17 20:54 Primary care physician: Sam Solorzano DO Consults: 08/07/17 09:22 Consult to Occupational Therapy [CONS] Routine Comment: Evaluate, develop and implement POC Reason for Consult: multiple falls at home. Consult to Physical Therapy [CONS] Routine Comment: Evaluate, develop and implement POC Reason for Consult: multiple falls at home 08/10/17 16:00 Consult to Physical Therapy [CONS] Routine Comment: Evaluate, develop and implement POC Reason for Consult: non-weight bearing left lower extremity s/p surgery. gait train walker - Constitutional Vitals: Temp Pulse Resp BP Pulse Ox 98 F 65 16 126/80 98 08/12/17 06:50 08/12/17 08:45 08/12/17 06:50 08/12/17 08:45 08/12/17 06:50 General appearance: Present: A&O X 3, pleasant, no acute distress, answers questions appropriately - Patient Status Condition: Good - Discharge Instructions Follow Up With: Sam Solorzano DO [Primary Care Provider] - - VTE Documentation of Mechanical Device: Intermittent pneumatic compression device <Wenceslao Desai - Last Filed: 08/12/17 12:31> Orders not resulted at time of discharge: Pending orders 08/13/17 04:00 CBC no Diff [Complete Blood Count w/o Diff] [HEME] AM 0400 Date of Encounter: 08/12/17 Hospital course: Mr. Cannon is a 61 year old male - Time Spent with Patient Total time spent providing and/or coordinating discharge services: Date of admission: 08/06/17 20:54 Primary care physician: Sam Solorzano DO Consults: 08/07/17 09:22 Consult to Occupational Therapy [CONS] Routine Comment: Evaluate, develop and implement POC Reason for Consult: multiple falls at home. Consult to Physical Therapy [CONS] Routine Comment: Evaluate, develop and implement POC Reason for Consult: multiple falls at home 08/10/17 16:00 Consult to Physical Therapy [CONS] Routine Comment: Evaluate, develop and implement POC Reason for Consult: non-weight bearing left lower extremity s/p surgery. gait train walker - Constitutional Vitals: Temp Pulse Resp BP Pulse Ox 97.8 F 65 16 103/62 97 08/12/17 09:45 08/12/17 09:45 08/12/17 09:45 08/12/17 09:45 08/12/17 09:45 - Attending Attestation I performed an independent interview and examine this patient. I am in agreement with the discharge summary, findings, assessment, and plan of Dr. Franco , internal medicine recording studio internship. Patient to be discharged, remain nonweightbearing left lower extremity. Patient will be discharged on Zaroxolyn 10 mg by mouth daily for DVT prophylaxis, and he will follow-up with podiatry in 1 week. He will need home nursing to assist with wound care. Will discuss the case with podiatry prior to discharge to ensure this is in fact the plan. Patient otherwise is stable. 33 minutes spent on discharge and coordination of care.
--- NOTE | 2017-08-12 13:59 | Internal Med Progress Note ---
Date of Encounter: 08/12/17 Time of Encounter: 09:25 - Assessment and plan (1) Bimalleolar fracture of left ankle Current Visit: Yes Status: Acute Assessment and plan: Patient arrived to the hospital after a fall at home. X-ray of the left ankle showed subacute fractures of distal tibia and fibula with tibiotalar dislocation x-ray of the left foot showed chronic 2nd and 3rd toe fractures with posterior tibiotalar dislocation. Podiatry has ordered lower extremity AMENA, which has been within normal limits venous duplex of left lower extremity negative for DVT. Preliminary carotid duplex study showed non-stenotic plaque in the right ICA, left ICA within normal limits. Orthostatic vitals negative POD# 1 of left ankle fusion. Drainage last 24 hrs = 200ml. plan: - possible removal of drainage if decreased tomorrow, can be discharged after drain is removed - will stop Ancef and restart home antibiotics -consult to PT/OT - pain control: Percocet 10/325 Q4hr - Patient understands risks and benefits of surgery. He refuses to go to SNF after his surgery, and states that he wishes to go home. - will need to start xarelto for DVT prophylaxis post surgery. Qualifiers: Encounter type: initial encounter Fracture type: closed Qualified Code(s) : S82.842A - Displaced bimalleolar fracture of left lower leg, initial encounter for closed fracture (2) Diabetes mellitus Current Visit: Yes Status: Acute Assessment and plan: Diabetic diet basal with low-dose sliding scale insulin a [facility] Accu checks. sugars well-controlled at this time. 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 Qualifiers: Hypertension type: essential hypertension Qualified Code(s): I10 - Essential (primary) hypertension (4) DARCI (obstructive sleep apnea) Current Visit: Yes Status: Acute Assessment and plan: Patient does have CPAP shooting at home that does not work. He refused CPAP in the hospital. (5) DVT prophylaxis Current Visit: Yes Status: Acute Assessment and plan: Heparin SQ - will need to place on Xarelto at discharge (6) Fall Current Visit: Yes Status: Acute Qualifiers: Encounter type: sequela Qualified Code(s): W19.XXXS - Unspecified fall, sequela (7) Tobacco abuse Current Visit: Yes Status: Acute Assessment and plan: Smoking cessation advice. Nicotine patch PRN (8) Lower extremity edema Current Visit: Yes Status: Acute Assessment and plan: Patient takes Lasix at home PRN urinanalysis showed no evidence of proteinuria echocardiogram showed EF 60%, mild left ventricular diastolic dysfunction, or more right ventricular structure and function, no valvular dysfunction, no pulmonary hypertension Plan: Doubled patient's home dose of oral Lasix to 40 PO mg daily. (9) Diastolic CHF Current Visit: Yes Status: Chronic Assessment and plan: Plan as above. Discontinued heart monitor. Qualifiers: Heart failure chronicity: chronic Qualified Code(s): I50.32 - Chronic diastolic (congestive) heart failure - Subjective Interval history: Mr. Cannon is a 65M admitted for fall at home with left ankle subacute who is POD#1 left ankle fusion. Patient states he is feeling well today. Pain is well-controlled. Patient states that he is in a pain contract with his PCP. Patient also states that he will be on antibiotics for the rest of his life due to an infection in his knee. Patient desires to go home. Patient denies shortness of breath, dizziness, abdominal pain. A 10 point review of systems was negative. - Constitutional Vitals: Temp Pulse Resp BP Pulse Ox 97.8 F 65 16 103/62 97 08/12/17 09:45 08/12/17 09:45 08/12/17 09:45 08/12/17 09:45 08/12/17 09:45 General appearance: Present: A&O X 3, pleasant, no acute distress, answers questions appropriately Exam: Constitutional: Alert, in no acute distress, well nourished Head: Normocephalic, atraumatic, Heart: Normal, regular rate and rhythm, no murmurs Lungs: Clear to auscultation, no wheezes, rales, or rhonchi Abdomen: obese, Soft, nondistended, nontender, bowel sounds present and normal, no guarding or rigidity. Extremities: left ankle and calf dressing clean with serosanginous fluid in drainage bulb, able to move toes, no signs of infection around dressing, venous stasis present, dry skin,radial pulse +2/4capillary refill <2sec. Skin: Skin warm and dry, no lesions, nno jaundice Neurologic: Cranial nerves II through XII grossly intact, no focal deficits, strength 5/5 in all extremities Psych: Cooperative with exam, good eye contact, cognitive function intact, judgment good insight good, speech clear, thought process logical, and goal directed Internal Medicine: Result - Labs CBC & Chem 7: 08/11/17 01:37 08/10/17 01:09 - ABG Interpretation ABG results: PT/INR, D-dimer PT 13.1 Seconds (9.4-12.1) H 08/06/17 16:47 - VTE Documentation of Mechanical Device: Intermittent pneumatic compression device Consult Discharge Plan - Plan Referrals: Sam Solorzano DO [Primary Care Provider] -
[2017-08-12] MEDS ORDERED: AMPICILLIN TRIHYDRATE 500 MG PO SCH (14:15)
[2017-08-12] MEDS: Nicotine 7 MG PATCH.TD24 TD PRN (16:45)
[2017-08-12] MEDS: *HR* Rivaroxaban 10 MG TABLET PO SCH (18:29)
[2017-08-12] MEDS: Insulin DETEMIR 100 UNIT/ML X5UNITS SQ SCH (21:14)
[2017-08-13] MEDS: CeFAZolin Premix DUPLEX 2,000 MG/50 ML BAG IVPB SCH ×3 (04:52→20:35)
[2017-08-13] MEDS: *HR* OxyCODONE/APAP 10/325 TABLET PO PRN ×3 (04:53→20:34)
[2017-08-13 05:36] LABS: Red Cell Distribution Width 15.8 % (11.5-14.5)
[2017-08-13 05:38] LABS: Hemoglobin 11.6 g/dL (12.9-16.9); Immature Platelets 4.7 % (1.1-6.1); Mean Corpuscular HGB Conc 32.2 g/dL (31.6-35.5); Mean Corpuscular Hemoglobin 31.4 pg (28.0-33.3); Mean Corpuscular Volume 97.3 fL (83.0-100.0); Red Blood Count 3.7 M/mcL (4.19-5.50)
[2017-08-13] MEDS: Lisinopril 20 MG TABLET PO SCH (08:22)
[2017-08-13] MEDS: Insulin LISPRO 300 UNITS/3 ML VIAL SQ SCH ×4 (08:22→20:35)
[2017-08-13] MEDS: *HR* Rivaroxaban 10 MG TABLET PO SCH (08:24)
[2017-08-13] MEDS: Cholecalciferol (D-3) 1,000 UNIT TABLET PO SCH (08:24)
[2017-08-13] MEDS: Furosemide 20 MG TABLET PO SCH (08:24)
[2017-08-13] MEDS: Fluticasone Propionate Nasal 50 MCG/SPRAY BOTTLE NS SCH (08:25)
--- NOTE | 2017-08-13 13:17 | Podiatry Progress Note ---
Date of Encounter: 08/13/17 Time of Encounter: 12:00 - Assessment and Plan (1) Bimalleolar fracture of left ankle Current Visit: Yes Status: Acute S/p left ankle fusion, synovectomy, bone graft major by Dr. Wells on 08/10/17. Dressing removed at bedside. Incision lines healing uneventfully. DUY drain intact with 5 ccs of bloody drainage observed to bulb. WBC: 8.6, a febrile Plan: DUY drain removed with out difficulty. Time out performed, area surrounding open area of LLE from where DUY drain was removed was prepped with betadine swabs and alcohol. 2 ccs of 1% plain lidocaine injected, after noting profound anesthesia the area was cleansed with alcohol, open area closed with one 3-0 prolene suture with sterile technique. No complications. Incision line cleansed with saline and posterior splint reapplied. Instructed to remain strict non weight bearing to the LLE. Patient is refusing SNF. Patient will need HHC and physical therapy at home. He is not to do physical therapy on the ankle but he can be assisted with gait training and transfers to aid him in being non-weight bearing on the left lower extremity. PT worked with patient today and was unable to remain NWB to the LLE, which is a concern for patient since he is refusing the SNF. Will discuss with social worker palliative care. Recommend he be discharged on xarelto 10mg or lovenox 40mg subq for DVT ppx. Patient will need to f/u with Dr. Wells one week after discharge from the hospital. Qualifiers: Encounter type: initial encounter Fracture type: closed Qualified Code(s) : S82.842A - Displaced bimalleolar fracture of left lower leg, initial encounter for closed fracture Subjective Interval history: S/p left ankle fusion, synovectomy, bone graft major by Dr. Wells on 08/10/17. Posterior splint dry and intact to LLE. Patient rates LLE pain at a 6 out of 10 currently. No c/o fever, chills, cp, sob or flu like symptoms. Objective - Vital Signs Vital Signs: Vital Signs Temp Pulse Resp BP Pulse Ox 08/13/17 11:00 98.4 F 94 20 106/70 96 08/13/17 08:33 95 08/13/17 06:45 98.6 F 80 18 98/59 95 08/13/17 00:07 98.1 F 98 18 118/65 93 08/12/17 20:23 98.0 F 101 18 116/65 93 08/12/17 14:45 97.9 F 68 16 105/68 95 Intake and Output 08/12/17 08/13/17 08/13/17 23:59 07:59 15:59 Intake Total 50 / 50 50 / 50 360 / 360 Output Total 465 / 465 1050 / 1050 300 / 300 Balance -415 / -415 -1000 / -1000 60 / 60 Intake: IV Fluids 50 / 50 50 / 50 Ancef Premix DUPLEX 2,000 mg In 50 / 50 50 / 50 50 ml @ 100 mls/hr IVPB Q8H [facility] Rx#:[id number] Oral 360 / 360 Output: Urine 450 / 450 1050 / 1050 300 / 300 Wound Drainage 15 Left Ankle 15 Other: Meal Breakfast Percent of Meal Consumed 95% Weight 159.665 kg Blood Glucose* 234 94 182 Patient Weight 08/13/17 23:59 Weight 159.665 kg - Exam Exam: General appearance: alert awake oriented X 3. Calm and pleasant, no acute distress.. Vascular: Left: Pedal pulses +1/4 DP, No evidence of cyanosis, pallor or rubor, Edema graded at 2+/4, Skin Temperature warm, No calf pain with manual compression. capillary refill time is immediate to digits. Neurologic: Sensation intact with light touch to left foot. . Postop Exam: S/P Bill intact to incision lines, no signs of dehiscence. DUY drain intact, bloody drainage observed to bulb, no odor, no erythema, no streaking. Minimal edema. - Lab Result Diagrams: 08/13/17 05:00 08/10/17 01:09 Labs: Abnormal lab results RBC 3.70 M/mcL (4.19-5.50) L 08/13/17 05:00 Hgb 11.6 g/dL (12.9-16.9) L 08/13/17 05:00 Hct 36.0 % (37.5-50.1) L 08/13/17 05:00 RDW 15.8 % (11.5-14.5) H 08/13/17 05:00 Plt Count 80 K/mcL (140-400) L 08/13/17 05:00 Nucleated RBCs/100 WBC 0.6 /100 WBC (0) H 08/10/17 01:09 PT 13.1 Seconds (9.4-12.1) H 08/06/17 16:47 Glucose 123 mg/dL (70-105) H 08/10/17 01:09 POC Glucose 234 (58-89) H 08/12/17 20:18 - VTE Documentation of Mechanical Device: Intermittent pneumatic compression device Consult Discharge Plan - Plan Referrals: Sam Solorzano DO [Primary Care Provider] -
--- NOTE | 2017-08-13 17:03 | Internal Med Progress Note ---
Date of Encounter: 08/13/17 Time of Encounter: 17:01 - Assessment and plan (1) Bimalleolar fracture of left ankle Current Visit: Yes Status: Acute Assessment and plan: Patient was noted to have bimalleolar fracture of the left ankle. Had surgical fixation on 08/10/17. Drain was removed on 08/13/17. He is nonweightbearing on the left leg. He has significant swelling of the left leg. He needs to have physical therapy at least to use bedside, or and to able to use the wheelchair. Although it is recommended for him to go to SNF he is only wanting to go home. This needs to be addressed before considering discharge. Qualifiers: Encounter type: initial encounter Fracture type: closed Qualified Code(s) : S82.842A - Displaced bimalleolar fracture of left lower leg, initial encounter for closed fracture (2) Thrombocytopenia Current Visit: Yes Status: Acute Assessment and plan: Acute on chronic thrombocytopenia. On admission his platelet count was hired and 119. Has dropped to 80. No active bleeding . He is on xarelto for DVT prophylaxis. Need follow-up as outpatient for stability of his platelet counts. (3) Diabetes mellitus Current Visit: Yes Status: Acute Assessment and plan: Regarding his DM type II he has been on insulin sliding scale coverage. Blood sugar He is stable at this time. 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 There is very mild edema on the right leg. No shortness of breath at rest. He does not have orthopnea. Please continue home diuretic treatment. His renal function is normal. Qualifiers: Heart failure chronicity: chronic Qualified Code(s): I50.32 - Chronic diastolic (congestive) heart failure - Subjective Interval history: Patient with multiple medical problems and recently he was admitted left ankle fracture and he had surgery done on 08/10/17. Had a drain. Which has been removed on 08/13/17. He is nonweightbearing on the left leg. Patient was advised to go to SNF. Appears he is not willing to do so. But patient has not even tried to use bedside. At this point he is bedridden. He tells that he has a friend will take care of him at home. He has not even tried to use the wheelchair yet. He needs to at least be able to use the wheelchair and bedside commode before he could be discharged home with home health. But my strong recommendation is to discharge to SNF. - Constitutional Vitals: Temp Pulse Resp BP Pulse Ox 97.9 F 95 20 106/66 96 08/13/17 15:16 08/13/17 15:16 08/13/17 15:16 08/13/17 15:16 08/13/17 15:16 General appearance: Present: A&O X 3, pleasant, no acute distress, answers questions appropriately Exam: Morbidly obese male. No distress at rest. No dyspnea orthopnea at rest. He has pallor. No cyanosis or jaundice. Neck without cervical or supraclavicular lymphadenopathy. CVS, S1-S2 regular. No murmur. RS, decreased entry bilaterally. Poor air movement. No rhonchi. Abdomen, obese nontender, bruits is noted. No hepatomegaly. Extremities, left leg swelling. Has dressing on the left leg and foot. Has chronic skin changes on the left leg. Right leg, minimal swelling. Chronic skin changes noted. 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 No confusion. Speech normal. Internal Medicine: Result - Labs CBC & Chem 7: 08/13/17 05:00 08/10/17 01:09 Labs: Short CBC 08/13/17 Range/Units 05:00 WBC 8.6 (4.3-11.1) K/mcL Hgb 11.6 L (12.9-16.9) g/dL Hct 36.0 L (37.5-50.1) % Plt Count 80 L (140-400) K/mcL - ABG Interpretation ABG results: PT/INR, D-dimer PT 13.1 Seconds (9.4-12.1) H 08/06/17 16:47 - VTE Documentation of Mechanical Device: Intermittent pneumatic compression device Consult Discharge Plan - Plan Referrals: Sam Solorzano, [Primary Care Provider] -
[2017-08-13] MEDS ORDERED: *HR* Rivaroxaban 10 MG TABLET PO SCH (19:00)
[2017-08-13] MEDS: Insulin DETEMIR 100 UNIT/ML X5UNITS SQ SCH (20:35)
[2017-08-14] MEDS: *HR* OxyCODONE/APAP 10/325 TABLET PO PRN ×3 (01:47→16:38)
[2017-08-14] MEDS: CeFAZolin Premix DUPLEX 2,000 MG/50 ML BAG IVPB SCH ×3 (04:51→23:17)
[2017-08-14] MEDS: Insulin LISPRO 300 UNITS/3 ML VIAL SQ SCH ×4 (08:30→23:15)
[2017-08-14] MEDS: Furosemide 20 MG TABLET PO SCH (08:31)
[2017-08-14] MEDS: Lisinopril 20 MG TABLET PO SCH (08:31)
[2017-08-14] MEDS: *HR* Rivaroxaban 10 MG TABLET PO SCH (08:31)
[2017-08-14] MEDS: Cholecalciferol (D-3) 1,000 UNIT TABLET PO SCH (08:32)
[2017-08-14] MEDS: Fluticasone Propionate Nasal 50 MCG/SPRAY BOTTLE NS SCH (08:32)
--- NOTE | 2017-08-14 12:40 | Podiatry Progress Note ---
Date of Encounter: 08/14/17 Time of Encounter: 12:15 - Assessment and Plan (1) Bimalleolar fracture of left ankle Current Visit: Yes Status: Acute S/p left ankle fusion, synovectomy, bone graft major by Dr. Wells on 08/10/17. Posterior splint dry and intact. Plan: It is recommended by Podiatry, Hospitalist and PT that patient be discharged to a SNF. Discussed risks of falls, injury, loss of limb if patient goes home. Patient continues to refuse. Instructed to remain strict non weight bearing to the LLE. Patient will need therapy at home. He is not to do physical therapy on the ankle but he can be assisted with gait training and transfers to aid him in being non-weight bearing on the left lower extremity. Discussed with caseworker and will speak with patient. Recommend he be discharged on xarelto 10mg or lovenox 40mg subq for DVT ppx. Patient will need to f/u with Dr. Wells one week after discharge from the hospital. Qualifiers: Encounter type: initial encounter Fracture type: closed Qualified Code(s) : S82.842A - Displaced bimalleolar fracture of left lower leg, initial encounter for closed fracture Subjective Interval history: S/p left ankle fusion, synovectomy, bone graft major by Dr. Wells on 08/10/17. Posterior splint dry and intact to LLE. Patient denies any pain currently. Patient states he wants to go home today. Discussed with patient the risks of going home and not to a SNF. Per PT note today, patient is not able to remain NWB to the LLE. Patient stated he was able to maintain NWB of the LLE today with therapy. Patient states he lives in a one floor home and with a wheelchair and that he will be able to remain non weight bearing. Patient states that he does not want to have another surgery and will remain NWB. Patient states he has assistance at home. No c/o fever, chills, cp, sob or flu like symptoms. Objective - Vital Signs Vital Signs: Vital Signs Temp Pulse Resp BP Pulse Ox 08/14/17 10:58 98.3 F 88 18 109/64 95 08/14/17 07:02 98.1 F 82 20 125/76 93 08/14/17 00:14 98.1 F 93 18 106/66 96 08/13/17 19:59 98.0 F 91 18 108/69 96 08/13/17 15:16 97.9 F 95 20 106/66 96 Intake and Output 08/13/17 08/14/17 08/14/17 23:59 07:59 15:59 Intake Total 340 / 340 50 / 50 240 / 240 Output Total 650 / 650 300 / 300 0 / 0 Balance -310 / -310 -250 / -250 240 / 240 Intake: IV Fluids 100 / 100 50 / 50 Ancef Premix DUPLEX 2,000 mg In 100 / 100 50 / 50 50 ml @ 100 mls/hr IVPB Q8H KRYSTEN Rx#:[id number] Oral 240 / 240 240 / 240 Output: Urine 650 / 650 300 / 300 0 / 0 Other: Meal Dinner Breakfast Percent of Meal Consumed 100% 100% Weight 159.211 kg Blood Glucose* 190 105 120 Patient Weight 08/14/17 23:59 Weight 159.211 kg - Exam Exam: General appearance: alert awake oriented X 3. Calm and pleasant, no acute distress.. Vascular: Skin Temperature warm, No calf pain with manual compression. capillary refill time is immediate to digits. Neurologic: Sensation intact with light touch to toes. Postop Exam: S/P Posterior splint dry and intact to the LLE, toes are pink, warm and dry, no drainage, no odor, no erythema, no streaking. Minimal edema. - Lab Result Diagrams: 08/13/17 05:00 08/10/17 01:09 Labs: Abnormal lab results RBC 3.70 M/mcL (4.19-5.50) L 08/13/17 05:00 Hgb 11.6 g/dL (12.9-16.9) L 08/13/17 05:00 Hct 36.0 % (37.5-50.1) L 08/13/17 05:00 RDW 15.8 % (11.5-14.5) H 08/13/17 05:00 Plt Count 80 K/mcL (140-400) L 08/13/17 05:00 Nucleated RBCs/100 WBC 0.6 /100 WBC (0) H 08/10/17 01:09 PT 13.1 Seconds (9.4-12.1) H 08/06/17 16:47 Glucose 123 mg/dL (70-105) H 08/10/17 01:09 POC Glucose 120 (58-89) H 08/14/17 11:10 - VTE Documentation of Mechanical Device: Intermittent pneumatic compression device Consult Discharge Plan - Plan Referrals: Sam Solorzano DO [Primary Care Provider] -
--- NOTE | 2017-08-14 15:51 | Internal Med Progress Note ---
<Rodney Hurd - Last Filed: 08/14/17 15:48> Date of Encounter: 08/14/17 Time of Encounter: 15:48 - Assessment and plan (1) Bimalleolar fracture of left ankle Current Visit: Yes Status: Acute Assessment and plan: Head bimalleolar fracture that was repaired on 08/10/17 by podiatry Drain is removed on 08/13/17 Recommended that he be nonweightbearing on his left leg due to recent surgical repair. Surgical nursing facility and rehabilitation has been recommended for this patient however he states that he does not want to go to rehabilitation and only wants to go home. Myself and the attending of stress the importance of going to a rehabilitation facility due to the patient being nonweightbearing. There is concern that with the patient be nonweightbearing and being on a blood thinner that he is at risk for fall and potential hemorrhagic complication. If the patient would decide to leave he would need to leave AMA. Qualifiers: Encounter type: initial encounter Fracture type: closed Qualified Code(s) : S82.842A - Displaced bimalleolar fracture of left lower leg, initial encounter for closed fracture (2) Diabetes mellitus Current Visit: No Status: Acute Assessment and plan: Blood sugars are currently stable Continue current medical management of sliding scale insulin. Qualifiers: Diabetes mellitus type: type 2 Diabetes mellitus complication status: without complication Diabetes mellitus senior care insulin use: with exterminator use Qualified Code(s): E11.9 - Type 2 diabetes mellitus without complications ; Z79.4 - intermediate (current) use of insulin; Z79.4 - intermediate (current) use of insulin; Z79.4 - intermediate (current) use of insulin; Z79.4 - intermediate ( current) use of insulin (3) Diastolic CHF Current Visit: No Status: Chronic Assessment and plan: Patient has pitting edema bilateral lower extremities Please continue with diuresis with Lasix Qualifiers: Heart failure chronicity: chronic Qualified Code(s): I50.32 - Chronic diastolic (congestive) heart failure (4) HTN (hypertension) Current Visit: No Status: Acute Assessment and plan: Continue medications blood pressures are stable at this time. Qualifiers: Hypertension type: essential hypertension Qualified Code(s): I10 - Essential (primary) hypertension (5) Thrombocytopenia Current Visit: Yes Status: Acute Assessment and plan: Patient has acute on chronic thrombocytopenia. Patient has no active bleed and is currently stable (6) Morbid obesity with body mass index of 50 or higher Current Visit: Yes Status: Acute Assessment and plan: Chronic issue Lifestyle modifications (7) DVT prophylaxis Current Visit: Yes Status: Acute Assessment and plan: Patient is currently on Xarelto. - Subjective Interval history: Patient states that he is doing well today and feels like he would like to go home. There have been extensive recommendations for this patient to go to an extended care facility and rehabilitation. The patient continues to deny to want to go to rehabilitation. The patient states that he would like to get back home to his pets and has someone at home that would be able to help him get around. However the attending and I read the bedside explaining the risks of going home with the inability to bear weight on his left lower extremity and being on a blood thinner with potential fall. The patient stated that she would just lay in bed and only get up to go to the bathroom however we did explain to him that there would be risk for possible DVT and/or pulmonary embolus due to immobility. The patient did finally agree to stay one more night and take a look at the rehabilitation literature but stated that this would likely not change his mind. - Constitutional Vitals: Temp Pulse Resp BP Pulse Ox 98.7 F 94 16 102/63 98 08/14/17 14:20 08/14/17 14:20 08/14/17 14:20 08/14/17 14:20 08/14/17 14:20 General appearance: Present: A&O X 3, pleasant, no acute distress, answers questions appropriately - Head Head exam: Present: atraumatic, normocephalic - Neck Neck exam general surgery: Present: full ROM, normal inspection, trachea midline - Respiratory Respiratory exam: Present: CTAB. Absent: accessory muscle use, rales, rhonchi, wheezes - Cardiovascular Cardiovascular exam: Present: RRR, +S1, +S2. Absent: diastolic murmur, gallop, rubs, systolic murmur - GI/Abdominal GI/Abdominal exam: Present: normal bowel sounds, soft, no peritoneal signs. Absent: distended, tenderness - Extremities Exam Extremities exam: Present: pedal edema (Bilateral pitting edema.) Additional comments: Patient had recent surgery on left ankle for bimalleolar fracture. Patient is currently in a splint and wrapped. - Neurological Exam Neurological exam: Present: alert, oriented X3, no focal deficits. Absent: facial droop, speech deficit - Psychiatric Psychiatric exam: Present: normal affect, normal mood - Skin Skin exam: Present: dry, intact, warm Internal Medicine: Result - Labs CBC & Chem 7: 08/13/17 05:00 08/10/17 01:09 - ABG Interpretation ABG results: PT/INR, D-dimer PT 13.1 Seconds (9.4-12.1) H 08/06/17 16:47 - VTE Documentation of Mechanical Device: Intermittent pneumatic compression device Consult Discharge Plan - Plan Referrals: Sam Solorzano DO [Primary Care Provider] - <Jordy Colin H - Last Filed: 08/14/17 16:23> Date of Encounter: 08/14/17 - Constitutional Vitals: Temp Pulse Resp BP Pulse Ox 98.7 F 94 16 102/63 98 08/14/17 14:20 08/14/17 14:20 08/14/17 14:20 08/14/17 14:20 08/14/17 14:20 Internal Medicine: Result - Labs CBC & Chem 7: 08/13/17 05:00 08/10/17 01:09 - ABG Interpretation ABG results: PT/INR, D-dimer PT 13.1 Seconds (9.4-12.1) H 08/06/17 16:47 - Attending Attestation The patient would consider getting information from different ECFs although he says he has made up his mind and wants to go home, he will have to leave AGAINST MEDICAL ADVICE. Risks of being on Xarelto were explained I examined this patient and my medical decision-making was reviewed with the Resident Physician. I agree with the documented findings, disposition and treatment plan as described except to the extent set forth below.
[2017-08-14] MEDS: Insulin DETEMIR 100 UNIT/ML X5UNITS SQ SCH (23:17)
[2017-08-15] MEDS: CeFAZolin Premix DUPLEX 2,000 MG/50 ML BAG IVPB SCH ×2 (05:17→15:59)
[2017-08-15 06:51] LABS: Hemoglobin 11.6 g/dL (12.9-16.9); Mean Platelet Volume 10.5 fL (9.4-12.4); Nucleated Red Blood Cells 0.3 /100 WBC (0)
[2017-08-15 06:53] LABS: Basophils % 0.4 %; Eosinophils # 0.2 K/mcL (0.0-0.6); Eosinophils % 2.7 %; Hematocrit 35.6 % (37.5-50.1); Immature Granulocytes % 0.3 % (0-4); Immature Platelets 3.6 % (1.1-6.1); Lymphocytes # 3.2 K/mcL (0.6-4.6); Lymphocytes % 41.5 %; Mean Corpuscular HGB Conc 32.6 g/dL (31.6-35.5); Mean Corpuscular Hemoglobin 31.6 pg (28.0-33.3); Monocytes # 0.7 K/mcL (0.0-1.3); Monocytes % 8.9 %; Neutrophils # 3.6 K/mcL (1.6-8.9); Red Blood Count 3.67 M/mcL (4.19-5.50); Red Cell Distribution Width 15.6 % (11.5-14.5); Segmented Neutrophils % 46.2 %
[2017-08-15 06:58] LABS: Platelet Count 97 K/mcL (140-400)
[2017-08-15] MEDS: Insulin LISPRO 300 UNITS/3 ML VIAL SQ SCH ×2 (08:27→14:03)
[2017-08-15] MEDS: Cholecalciferol (D-3) 1,000 UNIT TABLET PO SCH (08:35)
[2017-08-15] MEDS: *HR* Rivaroxaban 10 MG TABLET PO SCH (08:35)
[2017-08-15] MEDS: Furosemide 20 MG TABLET PO SCH (08:35)
[2017-08-15] MEDS: Lisinopril 20 MG TABLET PO SCH (08:35)
[2017-08-15] MEDS: *HR* OxyCODONE/APAP 10/325 TABLET PO PRN (08:50)
[2017-08-15] MEDS: Nicotine 7 MG PATCH.TD24 TD PRN (08:51)
--- NOTE | 2017-08-15 09:20 | Discharge Summary ---
<Rodney Hurd - Last Filed: 08/15/17 15:17> - NOTES TO OUTPATIENT PROVIDER Notes to Outpatient Provider: Patient had surgical repair of a bimalleolar fracture on the left ankle. Patient refused to go to an extent and care facility for rehabilitation and insisted on going home. The patient signed out AGAINST MEDICAL ADVICE. We did not feel comfortable providing this patient with his Xarelto upon discharge due to risk of fall and potential bleed and adverse outcome. Home health was not able to be provided due to the patient signing out AMA. Date of Encounter: 08/15/17 Time of Encounter: 09:18 - Discharge Diagnosis (1) Bimalleolar fracture of left ankle Priority: Primary Status: Acute Qualifiers: Encounter type: initial encounter Fracture type: closed Qualified Code(s) : S82.842A - Displaced bimalleolar fracture of left lower leg, initial encounter for closed fracture (2) Diabetes mellitus Priority: Secondary Status: Acute Qualifiers: Diabetes mellitus type: type 2 Diabetes mellitus complication status: without complication Diabetes mellitus buttermaker continuous churn insulin use: with nursing home use Qualified Code(s): E11.9 - Type 2 diabetes mellitus without complications ; Z79.4 - intermediate manager (current) use of insulin; Z79.4 - intermediate manager (current) use of insulin; Z79.4 - prison (current) use of insulin; Z79.4 - prison ( current) use of insulin (3) Diastolic CHF Priority: Secondary Status: Chronic Qualifiers: Heart failure chronicity: chronic Qualified Code(s): I50.32 - Chronic diastolic (congestive) heart failure (4) HTN (hypertension) Priority: Secondary Status: Acute Qualifiers: Hypertension type: essential hypertension Qualified Code(s): I10 - Essential (primary) hypertension (5) Thrombocytopenia Priority: Secondary Status: Acute (6) Morbid obesity with body mass index of 50 or higher Priority: Secondary Status: Acute (7) DVT prophylaxis Priority: Primary Status: Acute Hospital course: Mr. Cannon is a 61 year old male was admitted to the hospital for bimalleolar fracture. This was repaired by podiatry on 08/10/17. The drain was removed from the left lower extremity on 08/13/17. The patient has been unable to transfer to a chair without assistance. Physical therapy, podiatry and the hospitalist service have recommended that the patient go to a extended care facility for rehabilitation. The patient has been very adamant throughout his hospital stay that he does not want to go to an extended care facility. He states that he had a friend that had a bad experience and refuses to go to the rehabilitation facility. He states that he has someone at home that can help take care of him. His been recommended by podiatry at the patient be given Xarelto for DVT prophylaxis. However due to the patient being unable to ambulate due to recent surgery and unable to bear weight on his left lower extremity there is concern that this patient could potentially fall. The patient continues to refuse placement into a rehabilitation facility. The patient is insisting on going home and will sign out AGAINST MEDICAL ADVICE. We will not provide him with any Xarelto due to concern for possible fall and bleed. This has been explained to the patient multiple times and he has verbalized understanding of the risk of going home and not going to an extended care facility. The patient has the capacity to make this decision. The patient will sign out AGAINST MEDICAL ADVICE today with the recommendation to follow-up with his primary care provider, podiatry or to return to the hospital if he has any worsening of the symptoms or any other concerns. - Time Spent with Patient Total time spent providing and/or coordinating discharge services: Greater than 30 minutes Specific discharge activities: 40 - Discharge Medications Home Medications: Albuterol Sulfate [Ventolin Hfa] 2 puff IH Q4H PRN 08/06/17 [History] Ampicillin Trihydrate 500 mg PO Q6H 08/06/17 [History] Cholecalciferol (Vitamin D3) [Vitamin D3] 2,000 unit PO DAILY 08/06/17 [History] Citalopram Hydrobromide [Celexa] 40 mg PO DAILY 08/06/17 [History] Cyclobenzaprine HCl 10 mg PO TID PRN 08/06/17 [History] Fluticasone Propionate Nasal [Flonase] 50 mcg NS DAILY 08/06/17 [History] Furosemide [Lasix] 20 mg PO DAILY PRN 08/06/17 [History] HYDROmorphone [Dilaudid] 2 mg PO Q12H 08/06/17 [History] Insulin Degludec [Tresiba Flextouch U-100] 50 unit SQ QPM 08/06/17 [History] Insulin LISPRO [Humalog Kwikpen U-100] 30 unit SQ QPM 08/06/17 [History] Lisinopril [Zestril] 20 mg PO DAILY 08/06/17 [History] Lovastatin 40 mg PO HS 08/06/17 [History] Oxymorphone HCl [Oxymorphone HCl ER] 5 mg PO DAILY 08/06/17 [History] Potassium Chloride [Klor-Con 10] 10 meq PO BID PRN 08/06/17 [History] Tamsulosin [Flomax] 0.4 mg PO DAILY 08/06/17 [History] Zolpidem [Ambien] 10 mg PO HS PRN 08/06/17 [History] Nicotine Patch [Nicoderm] 7 mg TD DAILY PRN patch.td24 08/12/17 [Rx] Acetaminophen [Tylenol] 650 mg PO Q6HR PRN tablet 08/15/17 [Rx] Allergies/Adverse Reactions: 3 Allergy/AdvReac Type Severity Reaction Status Date / Time No Known Allergies Allergy Verified 05/17/15 12:48 Date of admission: 08/06/17 20:54 Primary care physician: Sam Solorzano DO Consults: 08/07/17 09:22 Consult to Occupational Therapy [CONS] Routine Comment: Evaluate, develop and implement POC Reason for Consult: multiple falls at home. Consult to Physical Therapy [CONS] Routine Comment: Evaluate, develop and implement POC Reason for Consult: multiple falls at home 08/10/17 16:00 Consult to Physical Therapy [CONS] Routine Comment: Evaluate, develop and implement POC Reason for Consult: non-weight bearing left lower extremity s/p surgery. gait train walker Discharging clinician: Rodney Hurd Anticipated date of discharge: 08/15/17 - Constitutional Vitals: Temp Pulse Resp BP Pulse Ox 98.0 F 86 16 111/67 97 08/15/17 05:54 08/15/17 05:54 08/15/17 05:54 08/15/17 05:54 08/15/17 05:54 General appearance: Present: A&O X 3, pleasant, no acute distress, answers questions appropriately - Head Head exam: Present: atraumatic, normocephalic - Neck Neck exam general surgery: Present: full ROM, normal inspection, trachea midline - Respiratory Respiratory exam: Present: CTAB. Absent: accessory muscle use, rales, rhonchi, wheezes - Cardiovascular Cardiovascular exam: Present: RRR, +S1, +S2. Absent: diastolic murmur, gallop, rubs, systolic murmur - GI/Abdominal GI/Abdominal exam: Present: normal bowel sounds, soft, no peritoneal signs. Absent: distended, tenderness - Extremities Exam Additional comments: Bilateral swelling in the lower extremities. Patient has a splint and Gregorio wrap on the left extremity due to recent surgery. - Neurological Exam Neurological exam: Present: alert, oriented X3 - Patient Status Disposition: Left Against Medical Advice Condition: Good Overall status at discharge: patient is not back to baseline - Discharge Instructions Follow Up With: Sam Solorzano DO [Primary Care Provider] - Emery Wells DPM [Partnered Physician] - Additional Instructions: Please follow up to primary care provider at next available appointment Please follow up with Dr. Rosenberg the farm machinery mechanic as scheduled Please take all medications as prescribed. No weightbearing on the left lower extremity We have recommended placement into an extended care facility or rehabilitation center. We have stated that she would like to go home and will sign out AMA. If you change your mind and would like to go to an extended care facility or rehabilitation Center's contact the hospital, your primary care provider or podiatry and we can help you set this up. - Diet and Activity Activity: as per physical therapy Diet: advance to your usual diet - VTE Documentation of Mechanical Device: Intermittent pneumatic compression device <Jordy Colin - Last Filed: 08/15/17 16:16> Date of Encounter: 08/15/17 Hospital course: Mr. Cannon is a 61 year old male - Time Spent with Patient Total time spent providing and/or coordinating discharge services: Date of admission: 08/06/17 20:54 Primary care physician: Sam Solorzano DO Consults: 08/07/17 09:22 Consult to Occupational Therapy [CONS] Routine Comment: Evaluate, develop and implement POC Reason for Consult: multiple falls at home. Consult to Physical Therapy [CONS] Routine Comment: Evaluate, develop and implement POC Reason for Consult: multiple falls at home 08/10/17 16:00 Consult to Physical Therapy [CONS] Routine Comment: Evaluate, develop and implement POC Reason for Consult: non-weight bearing left lower extremity s/p surgery. gait train walker - Constitutional Vitals: Temp Pulse Resp BP Pulse Ox 98.0 F 99 18 108/73 95 08/15/17 14:52 08/15/17 14:52 08/15/17 14:52 08/15/17 14:52 08/15/17 14:52 - Attending Attestation Patient was explained the risks of not being able to bear any weight on his left foot, risk of falling, the need of anticoagulation/DVT prophylaxis. All these risks include more fractures or even . The patient still does not want to go to the ECF or stay. Prefers to go AGAINST MEDICAL ADVICE Time spent on this process 40 minutes I examined this patient and my medical decision-making was reviewed with the Resident Physician. I agree with the documented findings, disposition and treatment plan as described except to the extent set forth below.
[2017-08-15 14:54] VITALS: BP 108/73
[2017-08-15] MEDS: Fluticasone Propionate Nasal 50 MCG/SPRAY BOTTLE NS SCH (15:59)
== END 2017-08-15 21:25 | disposition left against medical advice (07) | DRG 313 ==
LOC: 3NENU 14:10 → EMEROO 14:10 → 3NENU 19:00 → SUATTDRO 20:54 → 3ANU 08-14 10:26
PROVIDERS: ADMIT Internal Medicine Cardiovascular Disease; ATTEND Internal Medicine

== ENCOUNTER 2019-08-24 10:22 | Inpatient (IN) ==
[2019-08-24] MEDS ORDERED: Albuterol 2.5 MG/3 ML NEBULIZER IH PRN (12:47)
[2019-08-24] MEDS: Albuterol 2.5 MG/3 ML NEBULIZER IH SCH ×3 (13:15→22:13)
[2019-08-24] MEDS ORDERED: Naloxone 0.4 MG/ML INJ IVP PRN (13:48)
[2019-08-24] MEDS ORDERED: Furosemide 20 MG/2 ML VIAL IVP ONE ×2 (14:18→14:31)
[2019-08-24] MEDS: *HR* OxyCODONE/APAP 5/325 TABLET PO PRN (14:32)
[2019-08-24] MEDS: Insulin DETEMIR 100 UNIT/ML X5UNITS SQ SCH ×2 (15:45→21:09)
[2019-08-24 16:26] LABS: ABG Base Excess 2 mEq/L (-2 to 3); ABG HCO3 26 mEq/L (21-27); ABG Oxygen Saturation 93 % (95-98); ABG PCO2 37 mmHg (35-45); ABG PH 7.45 pH Units (7.32-7.45); ABG PO2 63 mmHg (85-104); ABG TCO2 27 mEq/L (20-26)
[2019-08-24] MEDS ORDERED: *HR* HYDROmorphone (PF) 1 MG/ML SYRINGE IVP ONE (16:47)
[2019-08-24] MEDS: Insulin LISPRO 300 UNITS/3 ML VIAL SQ SCH ×2 (17:14→21:08)
[2019-08-24] MEDS ORDERED: Morphine Sulfate 2 MG/ML SYRINGE IVP ONE (21:06)
[2019-08-25] MEDS: *HR* Heparin 5,000 UNIT/ML VIAL SQ SCH ×3 (00:07→18:35)
[2019-08-25] MEDS ORDERED: *HR* OxyCODONE/APAP 5/325 TABLET PO ONE (00:57)
[2019-08-25] MEDS: Albuterol 2.5 MG/3 ML NEBULIZER IH SCH ×4 (03:29→21:55)
[2019-08-25] MEDS: *HR* OxyCODONE Immed Rel 5 MG TABLET PO PRN (04:25)
[2019-08-25 04:55] LABS: Basophils % 0.1 %; Eosinophils # 0.1 K/mcL (0.0-0.6); Eosinophils % 0.6 %; Hematocrit 31.3 % (37.5-50.1); Hemoglobin 9.4 g/dL (12.9-16.9); Immature Granulocytes % 1.1 % (0-4); Lymphocytes # 2.2 K/mcL (0.6-4.6); Mean Corpuscular Hemoglobin 26.3 pg (28.0-33.3); Mean Corpuscular Volume 87.4 fL (83.0-100.0); Mean Platelet Volume 10.3 fL (9.4-12.4); Monocytes # 1.8 K/mcL (0.0-1.3); Monocytes % 13.1 %; Neutrophils # 9.6 K/mcL (1.6-8.9); Platelet Count 139 K/mcL (140-400); Red Blood Count 3.58 M/mcL (4.19-5.50); Red Cell Distribution Width 18.2 % (11.5-14.5); Segmented Neutrophils % 69.1 %; White Blood Count 13.9 K/mcL (4.3-11.1)
[2019-08-25 05:15] LABS: BUN/Creatinine Ratio 15 (6-26); Blood Urea Nitrogen 18 mg/dL (8-23); Calcium 8.2 mg/dL (8.6-10.3); Carbon Dioxide 27 mEq/L (23-29); Chloride 102 mEq/L (98-107); Glucose 184 mg/dL (70-105); Osmolality,Calculated 287 (280-300); Potassium 3.4 mEq/L (3.5-5.1); Sodium 135 mEq/L (136-145); eGFR For African Americans > 60 (> 60); eGFR For Non-African Americans 60 (> 60)
[2019-08-25 05:16] LABS: % Iron Saturation 16 % (20-55); Iron 56 mcg/dL (65-175); Transferrin 258 mg/dL (203-362)
[2019-08-25 06:05] LABS: Ferritin 58 ng/mL (20-250)
[2019-08-25] MEDS ORDERED: Furosemide 20 MG TABLET PO PRN (08:13)
[2019-08-25] MEDS ORDERED: NON-FORMULARY MEDICATION 1 EACH EACH (Potassium Chloride [Klor-Con 10] 10 MEQ) PO PRN (08:14)
[2019-08-25] MEDS: Cholecalciferol (D-3) 1,000 UNIT (25MCG) TABLET PO SCH (10:21)
[2019-08-25] MEDS: *HR* OxyCODONE/APAP 5/325 TABLET PO PRN ×2 (10:21)
[2019-08-25] MEDS: Insulin DETEMIR 100 UNIT/ML X5UNITS SQ SCH ×2 (10:22→21:21)
[2019-08-25] MEDS: Insulin LISPRO 300 UNITS/3 ML VIAL SQ SCH ×4 (10:24→21:19)
[2019-08-25 15:16] LABS: ABG Base Excess 4 mEq/L (-2 to 3); ABG HCO3 29 mEq/L (21-27); ABG Oxygen Saturation 96 % (95-98); ABG PCO2 50 mmHg (35-45); ABG PH 7.38 pH Units (7.32-7.45); ABG PO2 88 mmHg (85-104); ABG TCO2 31 mEq/L (20-26)
[2019-08-25] MEDS ORDERED: Ketorolac 30 MG/ML VIAL IVP ONE (18:05)
[2019-08-25] MEDS: Lactulose Oral Soln 20 GM/30 ML UDC PO SCH (20:39)
[2019-08-25] MEDS: Budesonide/Formoterol 160/4.5 1 PUFF INH IH SCH (21:56)
[2019-08-26 01:56] LABS: Basophils % 0.2 %; Eosinophils # 0.1 K/mcL (0.0-0.6); Eosinophils % 1.2 %; Hematocrit 29.6 % (37.5-50.1); Hemoglobin 8.8 g/dL (12.9-16.9); Immature Granulocytes % 0.5 % (0-4); Lymphocytes # 1.7 K/mcL (0.6-4.6); Lymphocytes % 18.1 %; Mean Corpuscular HGB Conc 29.7 g/dL (31.6-35.5); Mean Corpuscular Hemoglobin 26.5 pg (28.0-33.3); Mean Corpuscular Volume 89.2 fL (83.0-100.0); Mean Platelet Volume 10.9 fL (9.4-12.4); Monocytes # 1.4 K/mcL (0.0-1.3); Monocytes % 14.3 %; Neutrophils # 6.3 K/mcL (1.6-8.9); Platelet Count 141 K/mcL (140-400); Red Blood Count 3.32 M/mcL (4.19-5.50); Red Cell Distribution Width 18.3 % (11.5-14.5); Segmented Neutrophils % 65.7 %; White Blood Count 9.6 K/mcL (4.3-11.1)
[2019-08-26 02:15] LABS: BUN/Creatinine Ratio 19 (6-26); Blood Urea Nitrogen 21 mg/dL (8-23); Calcium 8.3 mg/dL (8.6-10.3); Carbon Dioxide 27 mEq/L (23-29); Chloride 103 mEq/L (98-107); Glucose 165 mg/dL (70-105); Osmolality,Calculated 289 (280-300); Phosphorous 3.2 mg/dL (2.7-4.5); Potassium 3.9 mEq/L (3.5-5.1); Sodium 136 mEq/L (136-145); eGFR For African Americans > 60 (> 60); eGFR For Non-African Americans > 60 (> 60)
[2019-08-26] MEDS: *HR* OxyCODONE Immed Rel 5 MG TABLET PO PRN (02:22)
[2019-08-26] MEDS: Albuterol 2.5 MG/3 ML NEBULIZER IH SCH ×4 (03:38→22:17)
[2019-08-26] MEDS: *HR* Heparin 5,000 UNIT/ML VIAL SQ SCH ×2 (06:05→17:49)
[2019-08-26] MEDS: Cholecalciferol (D-3) 1,000 UNIT (25MCG) TABLET PO SCH (08:59)
[2019-08-26] MEDS: lisinopriL 20 MG TABLET PO SCH (08:59)
[2019-08-26] MEDS: Lactulose Oral Soln 20 GM/30 ML UDC PO SCH ×2 (09:00→22:55)
[2019-08-26] MEDS: Furosemide 40 MG TABLET PO SCH (09:00)
[2019-08-26] MEDS: lamoTRIgine 100 MG TABLET PO SCH (09:00)
[2019-08-26] MEDS: Insulin LISPRO 300 UNITS/3 ML VIAL SQ SCH ×5 (09:01→22:55)
[2019-08-26] MEDS: Insulin DETEMIR 100 UNIT/ML X5UNITS SQ SCH ×2 (09:17→23:03)
[2019-08-26] MEDS: Budesonide/Formoterol 160/4.5 1 PUFF INH IH SCH ×2 (10:40→22:17)
[2019-08-26] MEDS: *HR* OxyCODONE/APAP 5/325 TABLET PO PRN ×2 (13:13→19:30)
[2019-08-27] MEDS: Albuterol 2.5 MG/3 ML NEBULIZER IH SCH ×4 (04:05→21:33)
[2019-08-27] MEDS: *HR* OxyCODONE/APAP 5/325 TABLET PO PRN (04:23)
[2019-08-27] MEDS: *HR* Heparin 5,000 UNIT/ML VIAL SQ SCH ×2 (06:36→17:28)
[2019-08-27] MEDS: Insulin LISPRO 300 UNITS/3 ML VIAL SQ SCH ×7 (09:28→20:52)
[2019-08-27] MEDS: Furosemide 40 MG TABLET PO SCH (09:29)
[2019-08-27] MEDS: Lactulose Oral Soln 20 GM/30 ML UDC PO SCH ×6 (09:29→23:14)
[2019-08-27] MEDS: lisinopriL 20 MG TABLET PO SCH (09:29)
[2019-08-27] MEDS: Cholecalciferol (D-3) 1,000 UNIT (25MCG) TABLET PO SCH (09:29)
[2019-08-27] MEDS: lamoTRIgine 100 MG TABLET PO SCH (09:29)
[2019-08-27] MEDS: Insulin DETEMIR 100 UNIT/ML X5UNITS SQ SCH ×2 (09:47→20:48)
[2019-08-27] MEDS: Budesonide/Formoterol 160/4.5 1 PUFF INH IH SCH ×2 (10:08→21:33)
[2019-08-28] MEDS: Lactulose Oral Soln 20 GM/30 ML UDC PO SCH ×4 (01:57→22:00)
[2019-08-28] MEDS: Albuterol 2.5 MG/3 ML NEBULIZER IH SCH ×4 (03:34→22:13)
[2019-08-28] MEDS: *HR* Heparin 5,000 UNIT/ML VIAL SQ SCH ×2 (05:33→18:23)
[2019-08-28] MEDS: Furosemide 40 MG TABLET PO SCH (10:11)
[2019-08-28] MEDS: lamoTRIgine 100 MG TABLET PO SCH (10:11)
[2019-08-28] MEDS: Cholecalciferol (D-3) 1,000 UNIT (25MCG) TABLET PO SCH (10:11)
[2019-08-28] MEDS: lisinopriL 20 MG TABLET PO SCH (10:12)
[2019-08-28] MEDS: Budesonide/Formoterol 160/4.5 1 PUFF INH IH SCH ×2 (10:24→22:12)
[2019-08-28 10:30] LABS: Basophils % 0.3 %; Eosinophils # 0.1 K/mcL (0.0-0.6); Eosinophils % 0.8 %; Hematocrit 29.1 % (37.5-50.1); Hemoglobin 8.8 g/dL (12.9-16.9); Immature Granulocytes % 1.8 % (0-4); Lymphocytes # 1.7 K/mcL (0.6-4.6); Lymphocytes % 17.9 %; Mean Corpuscular HGB Conc 30.2 g/dL (31.6-35.5); Mean Corpuscular Hemoglobin 26.7 pg (28.0-33.3); Mean Corpuscular Volume 88.4 fL (83.0-100.0); Mean Platelet Volume 10.4 fL (9.4-12.4); Monocytes # 1.5 K/mcL (0.0-1.3); Monocytes % 15.5 %; Neutrophils # 6.1 K/mcL (1.6-8.9); Nucleated Red Blood Cells 0.2 /100 WBC (0); Platelet Count 166 K/mcL (140-400); Red Blood Count 3.29 M/mcL (4.19-5.50); Red Cell Distribution Width 18.8 % (11.5-14.5); Segmented Neutrophils % 63.7 %; White Blood Count 9.7 K/mcL (4.3-11.1)
[2019-08-28] MEDS: Insulin LISPRO 300 UNITS/3 ML VIAL SQ SCH ×7 (10:36→21:26)
[2019-08-28] MEDS: Insulin DETEMIR 100 UNIT/ML X5UNITS SQ SCH ×2 (10:38→22:00)
[2019-08-28 10:52] LABS: Calcium 8.7 mg/dL (8.6-10.3); Potassium 3.8 mEq/L (3.5-5.1)
[2019-08-28 11:35] LABS: Bilirubin,Direct 0.5 mg/dL (0.0-0.2); Bilirubin,Indirect 0.7 mg/dL (0.0-1.0); Bilirubin,Total 1.2 mg/dL (0.3-1.0); Globulin 2.9 g/dL (2.4-3.5); Total Protein 5.9 g/dL (6.4-8.9)
[2019-08-28] MEDS ORDERED: Haloperidol Lactate 5 MG/ML VIAL IM ONE (12:56)
[2019-08-28] MEDS ORDERED: Haloperidol Lactate 5 MG/ML VIAL IM PRN (14:33)
[2019-08-28] MEDS ORDERED: Haloperidol Lactate 5 MG/ML VIAL IVP PRN (21:16)
[2019-08-28] MEDS ORDERED: Acetaminophen IV 500 MG/50 ML INFUS..BTL IVPB ONE (22:18)
[2019-08-29] MEDS: Albuterol 2.5 MG/3 ML NEBULIZER IH SCH ×4 (03:27→22:17)
[2019-08-29] MEDS: *HR* Heparin 5,000 UNIT/ML VIAL SQ SCH ×2 (05:13→18:31)
[2019-08-29 05:30] LABS: Basophils % 0.3 %; Eosinophils # 0.1 K/mcL (0.0-0.6); Hematocrit 27.7 % (37.5-50.1); Hemoglobin 8.4 g/dL (12.9-16.9); Immature Granulocytes % 2.1 % (0-4); Lymphocytes # 1.7 K/mcL (0.6-4.6); Lymphocytes % 21.4 %; Mean Corpuscular HGB Conc 30.3 g/dL (31.6-35.5); Mean Corpuscular Hemoglobin 26.8 pg (28.0-33.3); Mean Corpuscular Volume 88.2 fL (83.0-100.0); Mean Platelet Volume 10.2 fL (9.4-12.4); Monocytes # 1.2 K/mcL (0.0-1.3); Monocytes % 15.1 %; Neutrophils # 4.7 K/mcL (1.6-8.9); Nucleated Red Blood Cells 0.4 /100 WBC (0); Platelet Count 143 K/mcL (140-400); Red Blood Count 3.14 M/mcL (4.19-5.50); Red Cell Distribution Width 19.4 % (11.5-14.5); Segmented Neutrophils % 60.1 %; White Blood Count 7.8 K/mcL (4.3-11.1)
[2019-08-29 05:50] LABS: BUN/Creatinine Ratio 31 (6-26); Blood Urea Nitrogen 35 mg/dL (8-23); Calcium 8.6 mg/dL (8.6-10.3); Carbon Dioxide 27 mEq/L (23-29); Chloride 104 mEq/L (98-107); Glucose 156 mg/dL (70-105); Magnesium 2.3 mg/dL (1.6-2.6); Osmolality,Calculated 297 (280-300); Potassium 3.5 mEq/L (3.5-5.1); Sodium 138 mEq/L (136-145); eGFR For African Americans > 60 (> 60); eGFR For Non-African Americans > 60 (> 60)
[2019-08-29] MEDS ORDERED: Lactulose Oral Soln 20 GM/30 ML UDC PO SCH ×2 (07:45→15:00)
[2019-08-29] MEDS: *HR* OxyCODONE/APAP 5/325 TABLET PO PRN ×2 (08:08→15:35)
[2019-08-29] MEDS: lamoTRIgine 100 MG TABLET PO SCH (08:09)
[2019-08-29] MEDS: lisinopriL 20 MG TABLET PO SCH (08:09)
[2019-08-29] MEDS: Cholecalciferol (D-3) 1,000 UNIT (25MCG) TABLET PO SCH (08:09)
[2019-08-29] MEDS: Insulin LISPRO 300 UNITS/3 ML VIAL SQ SCH ×7 (08:18→21:35)
[2019-08-29] MEDS: Budesonide/Formoterol 160/4.5 1 PUFF INH IH SCH ×2 (09:21→22:17)
[2019-08-29] MEDS: Insulin DETEMIR 100 UNIT/ML X5UNITS SQ SCH ×2 (09:29→21:43)
[2019-08-29] MEDS: Lactulose Oral Soln 20 GM/30 ML UDC PO SCH ×3 (10:52→21:43)
[2019-08-29 14:55] LABS: INR 1.2; Prothrombin Time 13.9 Seconds (9.4-12.1)
[2019-08-29 15:05] LABS: Albumin 2.7 g/dL (3.5-5.7); Bilirubin,Direct 0.4 mg/dL (0.0-0.2); Bilirubin,Indirect 0.5 mg/dL (0.0-1.0); Bilirubin,Total 0.9 mg/dL (0.3-1.0); Globulin 2.7 g/dL (2.4-3.5); Total Protein 5.4 g/dL (6.4-8.9)
[2019-08-30 02:27] LABS: Basophils % 0.4 %; Eosinophils # 0.1 K/mcL (0.0-0.6); Eosinophils % 1.7 %; Hematocrit 27.2 % (37.5-50.1); Hemoglobin 8.3 g/dL (12.9-16.9); Immature Granulocytes % 4.7 % (0-4); Lymphocytes # 1.7 K/mcL (0.6-4.6); Lymphocytes % 23.4 %; Mean Corpuscular HGB Conc 30.5 g/dL (31.6-35.5); Mean Corpuscular Hemoglobin 27.1 pg (28.0-33.3); Mean Corpuscular Volume 88.9 fL (83.0-100.0); Mean Platelet Volume 11.1 fL (9.4-12.4); Monocytes # 1.1 K/mcL (0.0-1.3); Monocytes % 14.9 %; Neutrophils # 3.9 K/mcL (1.6-8.9); Nucleated Red Blood Cells 0.6 /100 WBC (0); Platelet Count 137 K/mcL (140-400); Red Blood Count 3.06 M/mcL (4.19-5.50); Red Cell Distribution Width 19.9 % (11.5-14.5); Segmented Neutrophils % 54.9 %; White Blood Count 7.1 K/mcL (4.3-11.1)
[2019-08-30 02:38] LABS: BUN/Creatinine Ratio 27 (6-26); Blood Urea Nitrogen 26 mg/dL (8-23); Calcium 8.3 mg/dL (8.6-10.3); Carbon Dioxide 26 mEq/L (23-29); Chloride 108 mEq/L (98-107); Glucose 134 mg/dL (70-105); Magnesium 2.2 mg/dL (1.6-2.6); Osmolality,Calculated 297 (280-300); Phosphorous 3.2 mg/dL (2.7-4.5); Potassium 3.7 mEq/L (3.5-5.1); Sodium 140 mEq/L (136-145); eGFR For African Americans > 60 (> 60); eGFR For Non-African Americans > 60 (> 60)
[2019-08-30] MEDS: Albuterol 2.5 MG/3 ML NEBULIZER IH SCH ×3 (03:20→21:58)
[2019-08-30] MEDS: *HR* Heparin 5,000 UNIT/ML VIAL SQ SCH ×2 (06:07→17:24)
[2019-08-30] MEDS ORDERED: Cholecalciferol (D-3) 1,000 UNIT (25MCG) TABLET PO ONE (08:50)
[2019-08-30] MEDS ORDERED: Albuterol 2.5 MG/3 ML NEBULIZER ONE ×2 (08:50→15:39)
[2019-08-30] MEDS ORDERED: lamoTRIgine 100 MG TABLET ONE (08:50)
[2019-08-30] MEDS ORDERED: lisinopriL 20 MG TABLET ONE (08:50)
[2019-08-30] MEDS ORDERED: Lactulose Oral Soln 20 GM/30 ML UDC ONE ×2 (08:50→15:39)
[2019-08-30] MEDS: Insulin LISPRO 300 UNITS/3 ML VIAL SQ SCH ×5 (16:06→21:18)
[2019-08-30] MEDS: Insulin DETEMIR 100 UNIT/ML X5UNITS SQ SCH ×2 (16:08→21:34)
[2019-08-30] MEDS: Lactulose Oral Soln 20 GM/30 ML UDC PO SCH ×2 (16:08→21:34)
[2019-08-30] MEDS: Cholecalciferol (D-3) 1,000 UNIT (25MCG) TABLET PO SCH (16:08)
[2019-08-30] MEDS: lamoTRIgine 100 MG TABLET PO SCH (16:08)
[2019-08-30] MEDS: lisinopriL 20 MG TABLET PO SCH (16:09)
[2019-08-30] MEDS: Budesonide/Formoterol 160/4.5 1 PUFF INH IH SCH ×2 (16:47→21:58)
[2019-08-31 03:14] LABS: Basophils # 0.1 K/mcL (0.0-0.2); Basophils % 0.7 %; Eosinophils # 0.1 K/mcL (0.0-0.6); Eosinophils % 1.6 %; Hematocrit 26.7 % (37.5-50.1); Hemoglobin 8.1 g/dL (12.9-16.9); Immature Granulocytes % 5.7 % (0-4); Lymphocytes # 2.3 K/mcL (0.6-4.6); Lymphocytes % 27.2 %; Mean Corpuscular HGB Conc 30.3 g/dL (31.6-35.5); Mean Corpuscular Hemoglobin 27.1 pg (28.0-33.3); Mean Corpuscular Volume 89.3 fL (83.0-100.0); Mean Platelet Volume 11.1 fL (9.4-12.4); Monocytes # 1.1 K/mcL (0.0-1.3); Monocytes % 13.5 %; Neutrophils # 4.3 K/mcL (1.6-8.9); Nucleated Red Blood Cells 0.6 /100 WBC (0); Platelet Count 155 K/mcL (140-400); Red Blood Count 2.99 M/mcL (4.19-5.50); Red Cell Distribution Width 19.9 % (11.5-14.5); Segmented Neutrophils % 51.3 %; White Blood Count 8.4 K/mcL (4.3-11.1)
[2019-08-31 03:34] LABS: BUN/Creatinine Ratio 19 (6-26); Blood Urea Nitrogen 19 mg/dL (8-23); Carbon Dioxide 26 mEq/L (23-29); Chloride 105 mEq/L (98-107); Glucose 130 mg/dL (70-105); Magnesium 2.2 mg/dL (1.6-2.6); Osmolality,Calculated 288 (280-300); Phosphorous 2.7 mg/dL (2.7-4.5); Potassium 3.4 mEq/L (3.5-5.1); Sodium 137 mEq/L (136-145); eGFR For African Americans > 60 (> 60); eGFR For Non-African Americans > 60 (> 60)
[2019-08-31] MEDS: Albuterol 2.5 MG/3 ML NEBULIZER IH SCH ×4 (04:05→21:45)
[2019-08-31 04:43] LABS: Platelet Estimate Decreased (Normal)
[2019-08-31] MEDS: *HR* Heparin 5,000 UNIT/ML VIAL SQ SCH ×2 (06:49→17:30)
[2019-08-31] MEDS: Insulin LISPRO 300 UNITS/3 ML VIAL SQ SCH ×7 (08:10→22:20)
[2019-08-31] MEDS: lisinopriL 20 MG TABLET PO SCH (10:22)
[2019-08-31] MEDS: Cholecalciferol (D-3) 1,000 UNIT (25MCG) TABLET PO SCH (10:23)
[2019-08-31] MEDS: lamoTRIgine 100 MG TABLET PO SCH (10:23)
[2019-08-31] MEDS: Lactulose Oral Soln 20 GM/30 ML UDC PO SCH ×3 (10:30→22:24)
[2019-08-31] MEDS: Budesonide/Formoterol 160/4.5 1 PUFF INH IH SCH ×2 (10:30→21:45)
[2019-08-31] MEDS: Insulin DETEMIR 100 UNIT/ML X5UNITS SQ SCH ×2 (10:30→22:25)
[2019-09-01] MEDS: Albuterol 2.5 MG/3 ML NEBULIZER IH SCH ×2 (03:06→09:33)
[2019-09-01 04:12] LABS: Mean Corpuscular HGB Conc 30.8 g/dL (31.6-35.5); Mean Corpuscular Hemoglobin 27.1 pg (28.0-33.3); Mean Corpuscular Volume 88.1 fL (83.0-100.0); Nucleated Red Blood Cells 0.3 /100 WBC (0); Platelet Count 161 K/mcL (140-400); Red Blood Count 2.95 M/mcL (4.19-5.50); Red Cell Distribution Width 19.8 % (11.5-14.5); White Blood Count 9.2 K/mcL (4.3-11.1)
[2019-09-01 04:27] LABS: BUN/Creatinine Ratio 17 (6-26); Blood Urea Nitrogen 15 mg/dL (8-23); Calcium 7.9 mg/dL (8.6-10.3); Carbon Dioxide 26 mEq/L (23-29); Chloride 104 mEq/L (98-107); Glucose 133 mg/dL (70-105); Magnesium 2.2 mg/dL (1.6-2.6); Osmolality,Calculated 285 (280-300); Phosphorous 2.8 mg/dL (2.7-4.5); Potassium 3.6 mEq/L (3.5-5.1); Sodium 136 mEq/L (136-145); eGFR For African Americans > 60 (> 60); eGFR For Non-African Americans > 60 (> 60)
[2019-09-01] MEDS: *HR* Heparin 5,000 UNIT/ML VIAL SQ SCH (04:59)
[2019-09-01 05:04] LABS: Lymphocytes # 1.8 K/mcL (0.6-4.6); Monocytes # 0.9 K/mcL (0.0-1.3); Neutrophils # 6.3 K/mcL (1.6-8.9)
[2019-09-01 05:05] LABS: Anisocytosis 1+ (Not Present); Microcytosis Present (Not Present); Platelet Estimate Normal (Normal); Reactive Lymphocytes Present (Not Present)
[2019-09-01] MEDS: Budesonide/Formoterol 160/4.5 1 PUFF INH IH SCH (09:33)
[2019-09-01] MEDS: Cholecalciferol (D-3) 1,000 UNIT (25MCG) TABLET PO SCH (10:13)
[2019-09-01] MEDS: lamoTRIgine 100 MG TABLET PO SCH (10:14)
[2019-09-01] MEDS ORDERED: FLU Vac QV 19-20 (6Month+)/PF 0.5 ML SYRINGE IM ONE (11:02)
[2019-09-01] MEDS: Insulin LISPRO 300 UNITS/3 ML VIAL SQ SCH ×2 (11:17→11:42)
[2019-09-01 11:39] VITALS: BP 129/67
[2019-09-01] MEDS: Lactulose Oral Soln 20 GM/30 ML UDC PO SCH (11:41)
[2019-09-01] MEDS: Insulin DETEMIR 100 UNIT/ML X5UNITS SQ SCH (11:41)
[2019-09-01] MEDS: lisinopriL 20 MG TABLET PO SCH (11:47)
== END 2019-09-01 13:18 | disposition home or self-care (01) | DRG 560 ==
LOC: 3ANU → 2NENU 19:18 → SUATTDRO 08-25 09:54
PROVIDERS: ADMIT Internal Medicine; ATTEND Internal Medicine

== ENCOUNTER 2019-09-08 16:15 | Inpatient (IN) ==
[2019-09-08] MEDS ORDERED: Naloxone 0.4 MG/ML INJ IVP PRN (21:56)
[2019-09-08] MEDS ORDERED: Vancomycin (wt based) 1,000 MG VIAL IVPB SCH (23:00)
[2019-09-08] MEDS: Cefepime HCl 2,000 MG in Water for inj. (sterile) 20 ML IVP SCH (23:38)
[2019-09-09] MEDS: MetroNIDAZOLE 500 MG/100 ML 500 MG/100 ML BAG IVPB SCH ×2 (00:19→05:24)
[2019-09-09] MEDS: Lactulose Oral Soln 20 GM/30 ML UDC PO SCH ×5 (01:47→22:48)
[2019-09-09 04:30] LABS: Basophils # 0.1 K/mcL (0.0-0.2); Basophils % 0.5 %; Eosinophils # 0.2 K/mcL (0.0-0.6); Eosinophils % 2.2 %; Hematocrit 28.4 % (37.5-50.1); Hemoglobin 8.5 g/dL (12.9-16.9); Immature Granulocytes % 0.6 % (0-4); Lymphocytes # 2.5 K/mcL (0.6-4.6); Lymphocytes % 25.5 %; Mean Corpuscular HGB Conc 29.9 g/dL (31.6-35.5); Mean Corpuscular Hemoglobin 27.5 pg (28.0-33.3); Mean Corpuscular Volume 91.9 fL (83.0-100.0); Mean Platelet Volume 10.4 fL (9.4-12.4); Monocytes # 1.1 K/mcL (0.0-1.3); Monocytes % 11.9 %; Neutrophils # 5.7 K/mcL (1.6-8.9); Platelet Count 234 K/mcL (140-400); Red Blood Count 3.09 M/mcL (4.19-5.50); Red Cell Distribution Width 20.7 % (11.5-14.5); Segmented Neutrophils % 59.3 %; White Blood Count 9.6 K/mcL (4.3-11.1)
[2019-09-09 04:42] LABS: INR 1.4; Prothrombin Time 15.9 Seconds (9.4-12.1)
[2019-09-09 04:55] LABS: Alanine Aminotransferase 12 Units/L (7-52); Albumin 2.4 g/dL (3.5-5.7); Albumin/Globulin Ratio 0.6 (1.1-2.2); Alkaline Phosphatase 67 Units/L (34-104); Aspartate Amino Transferase 25 Units/L (13-39); BUN/Creatinine Ratio 12 (6-26); Bilirubin,Total 0.8 mg/dL (0.3-1.0); Blood Urea Nitrogen 12 mg/dL (8-23); Carbon Dioxide 25 mEq/L (23-29); Chloride 103 mEq/L (98-107); Glucose 115 mg/dL (70-105); Magnesium 1.8 mg/dL (1.6-2.6); Osmolality,Calculated 277 (280-300); Phosphorous 3.7 mg/dL (2.7-4.5); Potassium 4.4 mEq/L (3.5-5.1); Sodium 133 mEq/L (136-145); Total Protein 6.4 g/dL (6.4-8.9); eGFR For African Americans > 60 (> 60); eGFR For Non-African Americans > 60 (> 60)
[2019-09-09] MEDS ORDERED: 0.9 % Sodium Chloride 1,000 ML IVC SCH (05:45)
[2019-09-09] MEDS: Calcium Gluconate 1gm/50mL 1 GM/50 ML BAG IVPB SCH ×2 (06:18→07:07)
[2019-09-09] MEDS ORDERED: Dextrose Gel 15 GM/37.5 ML TUBE PO PRN ×2 (07:37)
[2019-09-09] MEDS ORDERED: D5% in Water 1,000 ML IVC PRN (07:37)
[2019-09-09] MEDS ORDERED: *HR* Dextrose 50 % in Water (Syg) 50 ML SYRINGE IVP PRN (07:37)
[2019-09-09] MEDS: Cefepime HCl 2,000 MG in Water for inj. (sterile) 20 ML IVP SCH (09:31)
[2019-09-09] MEDS: lamoTRIgine 100 MG TABLET PO SCH (09:31)
[2019-09-09] MEDS ORDERED: Insulin DETEMIR 100 UNIT/ML X5UNITS SQ SCH (10:45)
[2019-09-09] MEDS ORDERED: Piperacillin/Tazobactam 3.375 GM in 0.9 % Sodium Chloride Mini Bag 100 ML IVPB SCH (11:00)
[2019-09-09] MEDS: Furosemide 40 MG TABLET PO SCH ×2 (11:56→17:45)
[2019-09-09] MEDS: lisinopriL 20 MG TABLET PO SCH (11:56)
[2019-09-09] MEDS: Insulin LISPRO 300 UNITS/3 ML VIAL SQ SCH ×2 (11:56→16:42)
[2019-09-09] MEDS ORDERED: Insulin LISPRO 300 UNITS/3 ML VIAL SQ SCH ×2 (12:00→21:00)
[2019-09-09 12:15] LABS: Folate 6.1 ng/mL (3.0-16.0)
[2019-09-09] MEDS ORDERED: Ipratropium/Albuterol Neb 3 ML IH PRN (12:21)
[2019-09-09] MEDS: Budesonide/Formoterol 160/4.5 1 PUFF INH IH SCH ×2 (13:22→21:11)
[2019-09-09] MEDS: Nicotine 14 MG PATCH.TD24 TD SCH (13:29)
[2019-09-09] MEDS ORDERED: *HR* Heparin 5,000 UNIT/ML VIAL SQ SCH (14:00)
[2019-09-09] MEDS: Piperacillin/Tazobactam 3.375 GM in 0.9 % Sodium Chloride Mini Bag 100 ML IVPB SCH (17:45)
[2019-09-10 01:47] LABS: Basophils % 0.6 %; Eosinophils # 0.2 K/mcL (0.0-0.6); Eosinophils % 2.4 %; Hematocrit 26.9 % (37.5-50.1); Hemoglobin 8.2 g/dL (12.9-16.9); Immature Granulocytes % 0.6 % (0-4); Lymphocytes # 1.7 K/mcL (0.6-4.6); Lymphocytes % 24.7 %; Mean Corpuscular HGB Conc 30.5 g/dL (31.6-35.5); Mean Corpuscular Hemoglobin 28.3 pg (28.0-33.3); Mean Corpuscular Volume 92.8 fL (83.0-100.0); Mean Platelet Volume 10.4 fL (9.4-12.4); Monocytes # 0.8 K/mcL (0.0-1.3); Neutrophils # 4.3 K/mcL (1.6-8.9); Platelet Count 211 K/mcL (140-400); Red Cell Distribution Width 21.2 % (11.5-14.5); Segmented Neutrophils % 60.7 %
[2019-09-10] MEDS: Piperacillin/Tazobactam 3.375 GM in 0.9 % Sodium Chloride Mini Bag 100 ML IVPB SCH ×2 (01:47→09:31)
[2019-09-10 01:53] LABS: VBG Ionized Calcium 1.16 mmol/L (1.15-1.35)
[2019-09-10 01:57] LABS: INR 1.4; Prothrombin Time 15.7 Seconds (9.4-12.1)
[2019-09-10 02:06] LABS: BUN/Creatinine Ratio 12 (6-26); Blood Urea Nitrogen 12 mg/dL (8-23); Calcium 8.2 mg/dL (8.6-10.3); Carbon Dioxide 26 mEq/L (23-29); Chloride 105 mEq/L (98-107); Glucose 159 mg/dL (70-105); Osmolality,Calculated 283 (280-300); Potassium 3.7 mEq/L (3.5-5.1); Sodium 135 mEq/L (136-145); eGFR For African Americans > 60 (> 60); eGFR For Non-African Americans > 60 (> 60)
[2019-09-10] MEDS: Insulin LISPRO 300 UNITS/3 ML VIAL SQ SCH ×4 (09:18→22:43)
[2019-09-10] MEDS: Nicotine 14 MG PATCH.TD24 TD SCH (09:18)
[2019-09-10] MEDS: Budesonide/Formoterol 160/4.5 1 PUFF INH IH SCH ×2 (09:20→22:27)
[2019-09-10] MEDS: lamoTRIgine 100 MG TABLET PO SCH (09:23)
[2019-09-10] MEDS: Furosemide 40 MG TABLET PO SCH ×2 (09:24→18:01)
[2019-09-10] MEDS: lisinopriL 20 MG TABLET PO SCH (09:25)
[2019-09-10] MEDS: Lactulose Oral Soln 20 GM/30 ML UDC PO SCH ×3 (09:31→22:41)
[2019-09-10] MEDS ORDERED: Ethanol\\Acetic Acid\\Na Ace\\Ben 1,000 ML IRRIG.SOLN IR ONE ×2 (12:25→12:27)
[2019-09-10] MEDS ORDERED: *HR* Rocuronium Bromide 50 MG/5 ML VIAL ONE ×2 (12:28→15:00)
[2019-09-10] MEDS ORDERED: *HR* Succinylcholine 200 MG/10 ML VIAL IVP ONE (12:28)
[2019-09-10] MEDS ORDERED: Lidocaine -MPF 2% 2 ML VIAL ONE ×2 (12:28→12:40)
[2019-09-10] MEDS ORDERED: Dexamethasone 4 MG/ML VIAL ONE (12:29)
[2019-09-10] MEDS ORDERED: Ondansetron 4 MG/2 ML VIAL ONE (12:29)
[2019-09-10] MEDS ORDERED: Heparin 1,000 UNITS/500 mL 500 ML ONE (12:31)
[2019-09-10] MEDS ORDERED: *HR* Propofol 200 MG/20 ML VIAL IVP ONE (12:32)
[2019-09-10] MEDS ORDERED: *HR* FentaNYL (PF) 100 MCG/2 ML VIAL ONE ×2 (12:32→13:19)
[2019-09-10] MEDS ORDERED: CeFAZolin Syr 3,000MG/30 ML 3,000 MG/30 ML SYRINGE IVPB ONE (13:03)
[2019-09-10] MEDS ORDERED: Total Joint Mixture (50 ml) INTRAART ONE (13:15)
[2019-09-10] MEDS ORDERED: Aminoglycoside Consult 1 EACH MC ONE (13:15)
[2019-09-10] MEDS ORDERED: Albumin Human 5% 12.5 GM/250 ML IV.SOLN ONE ×2 (13:26→16:11)
[2019-09-10] MEDS ORDERED: *HR* PHENYLEPHRINE 1,000 MCG/10 ML SYRINGE IVP ONE (13:30)
[2019-09-10] MEDS ORDERED: *HR* Phenylephrine 10 MG/ML VIAL ONE (13:43)
[2019-09-10] MEDS ORDERED: Albumin Human 5% 12.5 GM/250 ML IV.SOLN IVPB ONE (16:09)
[2019-09-10] MEDS ORDERED: *HR* FentaNYL (PF) 100 MCG/2 ML VIAL IVP PRN (16:10)
[2019-09-10] MEDS ORDERED: Ondansetron 4 MG/2 ML VIAL IVP ONE (16:10)
[2019-09-10] MEDS ORDERED: *HR* Meperidine 25 MG/ML SYRINGE IVP PRN (16:10)
[2019-09-10] MEDS ORDERED: Acetaminophen IV 1,000 MG/100 ML INFUS..BTL IVPB ONE (16:10)
[2019-09-10] MEDS ORDERED: Acetaminophen IV 1,000 MG/100 ML INFUS..BTL ONE (16:10)
[2019-09-10] MEDS ORDERED: 0.9 % Sodium Chloride 500 ML ONE (16:45)
[2019-09-10 17:01] LABS: Hematocrit 27.3 % (37.5-50.1); Hemoglobin 8.1 g/dL (12.9-16.9)
[2019-09-10] MEDS ORDERED: Perflutren Lipid Microsphere 1.3 ML in 0.9 % Sodium Chloride 8.7 ML IVP ONE (17:49)
[2019-09-10] MEDS ORDERED: Dextrose Gel 15 GM/37.5 ML TUBE PO PRN ×2 (18:12)
[2019-09-10] MEDS ORDERED: Ipratropium/Albuterol Neb 3 ML IH PRN (18:12)
[2019-09-10] MEDS ORDERED: Sennosides 8.6 MG TABLET PO PRN (18:12)
[2019-09-10] MEDS ORDERED: HYDROcodone BIT/Homatropine 5 MG TABLET PO PRN (18:12)
[2019-09-10] MEDS ORDERED: Ringers Solution, Lactated 1,000 ML IVC SCH (18:12)
[2019-09-10] MEDS ORDERED: *HR* Promethazine 25 MG/ML VIAL IVP PRN (18:12)
[2019-09-10] MEDS ORDERED: Ondansetron 4 MG/2 ML VIAL IVP PRN (18:12)
[2019-09-10] MEDS ORDERED: *HR* OxyCODONE Immed Rel 5 MG TABLET PO PRN (18:12)
[2019-09-10] MEDS ORDERED: MOM Conc 10 ML UD.LIQ PO PRN (18:12)
[2019-09-10] MEDS ORDERED: Naloxone 0.4 MG/ML INJ IVP PRN ×2 (18:12)
[2019-09-10] MEDS ORDERED: D5% in Water 1,000 ML IVC PRN (18:12)
[2019-09-10] MEDS ORDERED: *HR* Dextrose 50 % in Water (Syg) 50 ML SYRINGE IVP PRN (18:12)
[2019-09-10] MEDS: Ascorbic Acid 500 MG TABLET PO SCH (18:48)
[2019-09-10] MEDS ORDERED: ceFAZolin 2,000 MG in 0.9 % Sodium Chloride 100 ML IVPB SCH (21:00)
[2019-09-10 22:28] LABS: Hematocrit 28.2 % (37.5-50.1); Hemoglobin 8.7 g/dL (12.9-16.9)
[2019-09-11] MEDS: ceFAZolin 2,000 MG in 0.9 % Sodium Chloride 100 ML IVPB SCH ×3 (00:35→16:21)
[2019-09-11 05:06] LABS: Basophils % 0.1 %; Hematocrit 28.3 % (37.5-50.1); Hemoglobin 8.6 g/dL (12.9-16.9); Immature Granulocytes % 0.5 % (0-4); Lymphocytes # 1.9 K/mcL (0.6-4.6); Lymphocytes % 13.5 %; Mean Corpuscular HGB Conc 30.4 g/dL (31.6-35.5); Mean Corpuscular Hemoglobin 28.3 pg (28.0-33.3); Mean Corpuscular Volume 93.1 fL (83.0-100.0); Mean Platelet Volume 10.1 fL (9.4-12.4); Monocytes # 1.3 K/mcL (0.0-1.3); Monocytes % 9.4 %; Neutrophils # 10.6 K/mcL (1.6-8.9); Platelet Count 201 K/mcL (140-400); Red Blood Count 3.04 M/mcL (4.19-5.50); Segmented Neutrophils % 76.5 %; White Blood Count 13.9 K/mcL (4.3-11.1)
[2019-09-11 05:25] LABS: BUN/Creatinine Ratio 12 (6-26); Blood Urea Nitrogen 15 mg/dL (8-23); Calcium 8.1 mg/dL (8.6-10.3); Carbon Dioxide 30 mEq/L (23-29); Chloride 101 mEq/L (98-107); Glucose 166 mg/dL (70-105); Osmolality,Calculated 287 (280-300); Potassium 4.3 mEq/L (3.5-5.1); Sodium 136 mEq/L (136-145); eGFR For African Americans > 60 (> 60); eGFR For Non-African Americans 56 (> 60)
[2019-09-11] MEDS ORDERED: Furosemide 40 MG TABLET PO SCH (08:00)
[2019-09-11] MEDS: Budesonide/Formoterol 160/4.5 1 PUFF INH IH SCH ×2 (08:05→20:33)
[2019-09-11] MEDS ORDERED: Ketorolac 15 MG/ML VIAL IVP ONE ×2 (08:32→17:59)
[2019-09-11] MEDS: Insulin LISPRO 300 UNITS/3 ML VIAL SQ SCH ×4 (08:40→20:59)
[2019-09-11] MEDS: Nicotine 14 MG PATCH.TD24 TD SCH (08:41)
[2019-09-11] MEDS: Lactulose Oral Soln 20 GM/30 ML UDC PO SCH ×4 (08:42→20:59)
[2019-09-11] MEDS: lamoTRIgine 100 MG TABLET PO SCH (08:42)
[2019-09-11] MEDS: Multivit/Ca/Min/Fe/FA 1 TAB TABLET PO SCH (08:42)
[2019-09-11] MEDS: Ascorbic Acid 500 MG TABLET PO SCH ×2 (08:42→16:21)
[2019-09-11] MEDS ORDERED: lisinopriL 20 MG TABLET PO SCH (09:00)
[2019-09-11 09:07] LABS: Hematocrit 28.6 % (37.5-50.1); Hemoglobin 8.9 g/dL (12.9-16.9)
[2019-09-11] MEDS ORDERED: Albumin 25% 25gram/100mL 25 GM/100 ML IV.SOLN IVPB ONE (11:02)
[2019-09-11] MEDS ORDERED: Acetaminophen 650 MG RECTAL SUPP RC PRN (11:06)
[2019-09-11] MEDS ORDERED: Ibuprofen 600 MG TABLET PO PRN (11:07)
[2019-09-11] MEDS ORDERED: Acetaminophen 325 MG TABLET PO PRN (11:18)
[2019-09-11] MEDS: Aspirin Enteric Coated 81 MG Tablet PO SCH (12:13)
[2019-09-11] MEDS: *HR* Heparin 5,000 UNIT/ML VIAL SQ SCH ×2 (16:21→21:07)
[2019-09-11] MEDS: Furosemide 40 MG TABLET PO SCH (16:26)
[2019-09-11] MEDS: Famotidine 20 MG TABLET PO SCH ×2 (16:27→21:05)
[2019-09-11] MEDS: Ibuprofen 600 MG TABLET PO PRN (21:28)
[2019-09-12] MEDS: ceFAZolin 2,000 MG in 0.9 % Sodium Chloride 100 ML IVPB SCH ×4 (00:53→23:41)
[2019-09-12 01:35] LABS: Basophils % 0.4 %; Eosinophils # 0.1 K/mcL (0.0-0.6); Eosinophils % 1.3 %; Hematocrit 27.5 % (37.5-50.1); Hemoglobin 7.8 g/dL (12.9-16.9); Immature Granulocytes % 0.4 % (0-4); Lymphocytes # 2.7 K/mcL (0.6-4.6); Mean Corpuscular HGB Conc 28.4 g/dL (31.6-35.5); Mean Corpuscular Hemoglobin 27.8 pg (28.0-33.3); Mean Corpuscular Volume 97.9 fL (83.0-100.0); Mean Platelet Volume 9.9 fL (9.4-12.4); Monocytes # 1.1 K/mcL (0.0-1.3); Platelet Count 152 K/mcL (140-400); Red Blood Count 2.81 M/mcL (4.19-5.50); Red Cell Distribution Width 20.9 % (11.5-14.5); Segmented Neutrophils % 55.9 %; White Blood Count 8.9 K/mcL (4.3-11.1)
[2019-09-12 01:51] LABS: BUN/Creatinine Ratio 14 (6-26); Blood Urea Nitrogen 15 mg/dL (8-23); Calcium 8.1 mg/dL (8.6-10.3); Carbon Dioxide 28 mEq/L (23-29); Chloride 104 mEq/L (98-107); Glucose 145 mg/dL (70-105); Osmolality,Calculated 283 (280-300); Potassium 3.6 mEq/L (3.5-5.1); Sodium 135 mEq/L (136-145); eGFR For African Americans > 60 (> 60); eGFR For Non-African Americans > 60 (> 60)
[2019-09-12 01:55] LABS: Anisocytosis 1+ (Not Present); Hypochromasia Present (Not Present); Platelet Estimate Normal (Normal)
[2019-09-12] MEDS: *HR* Heparin 5,000 UNIT/ML VIAL SQ SCH ×3 (06:08→20:29)
[2019-09-12] MEDS: lamoTRIgine 100 MG TABLET PO SCH (08:55)
[2019-09-12] MEDS: Multivit/Ca/Min/Fe/FA 1 TAB TABLET PO SCH (08:56)
[2019-09-12] MEDS: Famotidine 20 MG TABLET PO SCH ×2 (08:57→20:27)
[2019-09-12] MEDS: Ibuprofen 600 MG TABLET PO PRN ×2 (08:58→20:29)
[2019-09-12] MEDS: Ascorbic Acid 500 MG TABLET PO SCH ×2 (09:02→17:06)
[2019-09-12] MEDS: Aspirin Enteric Coated 81 MG Tablet PO SCH (09:02)
[2019-09-12] MEDS: Nicotine 14 MG PATCH.TD24 TD SCH (09:03)
[2019-09-12] MEDS: Insulin LISPRO 300 UNITS/3 ML VIAL SQ SCH ×4 (09:19→20:17)
[2019-09-12] MEDS: Furosemide 40 MG TABLET PO SCH ×2 (10:33→16:24)
[2019-09-12] MEDS: Lactulose Oral Soln 20 GM/30 ML UDC PO SCH ×4 (10:33→20:26)
[2019-09-12] MEDS ORDERED: *HR* LORazepam 2 MG/ML VIAL IVP ONE (10:34)
[2019-09-12] MEDS: Budesonide/Formoterol 160/4.5 1 PUFF INH IH SCH ×2 (10:59→20:08)
[2019-09-13] MEDS: *HR* Heparin 5,000 UNIT/ML VIAL SQ SCH (06:16)
[2019-09-13] MEDS: Furosemide 40 MG TABLET PO SCH (08:41)
[2019-09-13] MEDS: Lactulose Oral Soln 20 GM/30 ML UDC PO SCH (08:42)
[2019-09-13] MEDS: ceFAZolin 2,000 MG in 0.9 % Sodium Chloride 100 ML IVPB SCH (08:50)
[2019-09-13] MEDS: Multivit/Ca/Min/Fe/FA 1 TAB TABLET PO SCH (08:51)
[2019-09-13] MEDS: Aspirin Enteric Coated 81 MG Tablet PO SCH (08:51)
[2019-09-13] MEDS: Ascorbic Acid 500 MG TABLET PO SCH (08:51)
[2019-09-13] MEDS: lamoTRIgine 100 MG TABLET PO SCH (08:51)
[2019-09-13] MEDS: Famotidine 20 MG TABLET PO SCH (08:51)
[2019-09-13] MEDS: Insulin LISPRO 300 UNITS/3 ML VIAL SQ SCH ×2 (08:52→12:19)
[2019-09-13] MEDS: Nicotine 14 MG PATCH.TD24 TD SCH (08:52)
[2019-09-13] MEDS ORDERED: Iron Sucrose Complex 250 MG in 0.9 % Sodium Chloride 250 ML IVPB SCH (10:15)
[2019-09-13] MEDS: Budesonide/Formoterol 160/4.5 1 PUFF INH IH SCH (10:51)
[2019-09-13 11:03] VITALS: BP 140/84
[2019-09-13 11:06] LABS: Hematocrit 26.7 % (37.5-50.1)
== END 2019-09-13 13:40 | disposition other institution (70) | DRG 467 ==
LOC: INTOOBSV 18:51 → 3NENU 18:51 → SUATTDRO 21:56
PROVIDERS: ADMIT Internal Medicine; ATTEND Student in an Organized Health Care Education/Training Program

== ENCOUNTER 2019-10-07 10:45 | Inpatient (IN) ==
[2019-10-07] MEDS ORDERED: Ondansetron 4 MG/2 ML VIAL IVP PRN (14:45)
[2019-10-07] MEDS ORDERED: Acetaminophen 325 MG TABLET PO PRN (14:45)
[2019-10-07] MEDS ORDERED: NON-FORMULARY MEDICATION 1 EACH EACH (Cefazolin Sodium In 0.9 % Nacl [Cefazolin 2 G/100 Ml IV SCH (15:00)
[2019-10-07] MEDS: Lactulose Oral Soln 20 GM/30 ML UDC PO SCH ×2 (16:45→22:34)
[2019-10-07] MEDS: ceFAZolin 2,000 MG in 0.9 % Sodium Chloride 100 ML IVPB SCH (16:45)
[2019-10-07] MEDS ORDERED: *HR* Dextrose 50 % in Water (Syg) 50 ML SYRINGE IVP PRN (16:56)
[2019-10-07] MEDS ORDERED: D5% in Water 1,000 ML IVC PRN (16:56)
[2019-10-07] MEDS ORDERED: Dextrose Gel 15 GM/37.5 ML TUBE PO PRN ×2 (16:56)
[2019-10-07] MEDS: Insulin LISPRO 300 UNITS/3 ML VIAL SQ SCH ×2 (17:44→22:34)
[2019-10-07] MEDS: Budesonide/Formoterol 160/4.5 1 PUFF INH IH SCH (20:16)
[2019-10-07] MEDS ORDERED: NON-FORMULARY MEDICATION 1 EACH EACH (Insulin Detemir [Levemir Flextouch] 30 UNIT) SQ SCH (21:00)
[2019-10-07] MEDS: Insulin DETEMIR 100 UNIT/ML X5UNITS SQ SCH (22:34)
[2019-10-08] MEDS: ceFAZolin 2,000 MG in 0.9 % Sodium Chloride 100 ML IVPB SCH ×2 (02:17→09:07)
[2019-10-08] MEDS: *HR* Enoxaparin 40 MG/0.4 ML SYRINGE SQ SCH (05:34)
[2019-10-08 05:52] LABS: Hematocrit 34.3 % (37.5-50.1); Hemoglobin 10.9 g/dL (12.9-16.9); Mean Corpuscular HGB Conc 31.8 g/dL (31.6-35.5); Mean Corpuscular Volume 97.4 fL (83.0-100.0); Mean Platelet Volume 10.2 fL (9.4-12.4); Platelet Count 197 K/mcL (140-400); Red Blood Count 3.52 M/mcL (4.19-5.50); Red Cell Distribution Width 22.6 % (11.5-14.5); White Blood Count 13.2 K/mcL (4.3-11.1)
[2019-10-08 06:04] LABS: BUN/Creatinine Ratio 14 (6-26); Blood Urea Nitrogen 15 mg/dL (8-23); Calcium 8.6 mg/dL (8.6-10.3); Carbon Dioxide 25 mEq/L (23-29); Chloride 103 mEq/L (98-107); Glucose 120 mg/dL (70-105); Magnesium 1.8 mg/dL (1.6-2.6); Osmolality,Calculated 288 (280-300); Potassium 3.7 mEq/L (3.5-5.1); Sodium 138 mEq/L (136-145); eGFR For African Americans > 60 (> 60); eGFR For Non-African Americans > 60 (> 60)
[2019-10-08 06:05] LABS: Albumin 2.9 g/dL (3.5-5.7); Albumin/Globulin Ratio 0.9 (1.1-2.2); Bilirubin,Direct 0.2 mg/dL (0.0-0.2); Bilirubin,Indirect 0.8 mg/dL (0.0-1.0); Globulin 3.1 g/dL (2.4-3.5)
[2019-10-08] MEDS: Budesonide/Formoterol 160/4.5 1 PUFF INH IH SCH ×2 (08:11→20:23)
[2019-10-08] MEDS: Insulin LISPRO 300 UNITS/3 ML VIAL SQ SCH ×4 (09:07→23:21)
[2019-10-08] MEDS: lisinopriL 20 MG TABLET PO SCH (09:08)
[2019-10-08] MEDS: Lactulose Oral Soln 20 GM/30 ML UDC PO SCH ×3 (09:08→23:21)
[2019-10-08] MEDS: Aspirin Enteric Coated 81 MG Tablet PO SCH (09:08)
[2019-10-08] MEDS: lamoTRIgine 100 MG TABLET PO SCH (09:08)
[2019-10-08] MEDS: Insulin DETEMIR 100 UNIT/ML X5UNITS SQ SCH ×2 (09:08→23:21)
[2019-10-08] MEDS: Nicotine 14 MG PATCH.TD24 TD SCH (09:08)
[2019-10-08] MEDS: Cetaphil Lotion 473 ML BOTTLE TP SCH (09:08)
[2019-10-08] MEDS: Piperacillin/Tazobactam 3.375 GM in 0.9 % Sodium Chloride Mini Bag 100 ML IVPB SCH ×2 (13:01→20:45)
[2019-10-08] MEDS ORDERED: Ipratropium/Albuterol Neb 3 ML IH PRN (17:48)
[2019-10-08] MEDS: Triamcinolone Acet 0.1% CRM 15 GM TUBE TP SCH (23:26)
[2019-10-09] MEDS: Piperacillin/Tazobactam 3.375 GM in 0.9 % Sodium Chloride Mini Bag 100 ML IVPB SCH ×3 (03:30→20:08)
[2019-10-09] MEDS: *HR* Enoxaparin 40 MG/0.4 ML SYRINGE SQ SCH (05:06)
[2019-10-09 08:12] LABS: Basophils % 0.3 %; Eosinophils # 0.6 K/mcL (0.0-0.6); Eosinophils % 6.3 %; Hematocrit 34.2 % (37.5-50.1); Hemoglobin 10.3 g/dL (12.9-16.9); Immature Granulocytes % 0.3 % (0-4); Lymphocytes # 2.2 K/mcL (0.6-4.6); Lymphocytes % 23.7 %; Mean Corpuscular HGB Conc 30.1 g/dL (31.6-35.5); Mean Corpuscular Hemoglobin 30.2 pg (28.0-33.3); Mean Corpuscular Volume 100.3 fL (83.0-100.0); Mean Platelet Volume 10.2 fL (9.4-12.4); Monocytes % 11.1 %; Neutrophils # 5.4 K/mcL (1.6-8.9); Platelet Count 187 K/mcL (140-400); Red Blood Count 3.41 M/mcL (4.19-5.50); Red Cell Distribution Width 22.4 % (11.5-14.5); Segmented Neutrophils % 58.3 %; White Blood Count 9.4 K/mcL (4.3-11.1)
[2019-10-09] MEDS: Budesonide/Formoterol 160/4.5 1 PUFF INH IH SCH ×2 (08:20→20:37)
[2019-10-09 08:29] LABS: % Iron Saturation 12 % (20-55); BUN/Creatinine Ratio 14 (6-26); Blood Urea Nitrogen 12 mg/dL (8-23); Calcium 8.6 mg/dL (8.6-10.3); Carbon Dioxide 27 mEq/L (23-29); Chloride 103 mEq/L (98-107); Glucose 128 mg/dL (70-105); Iron 35 mcg/dL (65-175); Magnesium 1.9 mg/dL (1.6-2.6); Osmolality,Calculated 289 (280-300); Potassium 3.5 mEq/L (3.5-5.1); Sodium 139 mEq/L (136-145); Transferrin 210 mg/dL (203-362); eGFR For African Americans > 60 (> 60); eGFR For Non-African Americans > 60 (> 60)
[2019-10-09] MEDS: Insulin LISPRO 300 UNITS/3 ML VIAL SQ SCH ×4 (08:29→20:26)
[2019-10-09] MEDS: Aspirin Enteric Coated 81 MG Tablet PO SCH (08:32)
[2019-10-09] MEDS: Cetaphil Lotion 473 ML BOTTLE TP SCH (08:32)
[2019-10-09] MEDS: Triamcinolone Acet 0.1% CRM 15 GM TUBE TP SCH ×2 (08:32→20:25)
[2019-10-09] MEDS: lamoTRIgine 100 MG TABLET PO SCH (08:32)
[2019-10-09] MEDS: Nicotine 14 MG PATCH.TD24 TD SCH (08:32)
[2019-10-09] MEDS: Insulin DETEMIR 100 UNIT/ML X5UNITS SQ SCH ×2 (08:32→20:26)
[2019-10-09] MEDS: Lactulose Oral Soln 20 GM/30 ML UDC PO SCH ×3 (08:32→20:23)
[2019-10-09] MEDS: lisinopriL 20 MG TABLET PO SCH (08:33)
[2019-10-09 08:41] LABS: Ferritin 80 ng/mL (20-250)
[2019-10-09 08:48] LABS: Folate 9.1 ng/mL (3.0-16.0)
[2019-10-09] MEDS ORDERED: HydrOXYzine 100 MG/2 ML VIAL IM ONE (08:59)
[2019-10-09 09:22] LABS: Estimated Average Glucose 103 mg/dl
[2019-10-09] MEDS: Furosemide 40 MG TABLET PO SCH (16:58)
[2019-10-10] MEDS: Piperacillin/Tazobactam 3.375 GM in 0.9 % Sodium Chloride Mini Bag 100 ML IVPB SCH ×3 (02:05→19:20)
[2019-10-10] MEDS: *HR* Enoxaparin 40 MG/0.4 ML SYRINGE SQ SCH (05:08)
[2019-10-10 06:45] LABS: Basophils % 0.4 %; Eosinophils # 0.7 K/mcL (0.0-0.6); Eosinophils % 8.4 %; Hematocrit 36.3 % (37.5-50.1); Hemoglobin 10.8 g/dL (12.9-16.9); Immature Granulocytes % 0.6 % (0-4); Lymphocytes # 2.2 K/mcL (0.6-4.6); Lymphocytes % 26.8 %; Mean Corpuscular HGB Conc 29.8 g/dL (31.6-35.5); Mean Corpuscular Hemoglobin 30.3 pg (28.0-33.3); Mean Corpuscular Volume 101.7 fL (83.0-100.0); Mean Platelet Volume 10.3 fL (9.4-12.4); Monocytes # 0.8 K/mcL (0.0-1.3); Monocytes % 9.5 %; Neutrophils # 4.5 K/mcL (1.6-8.9); Platelet Count 180 K/mcL (140-400); Red Blood Count 3.57 M/mcL (4.19-5.50); Red Cell Distribution Width 22.4 % (11.5-14.5); Segmented Neutrophils % 54.3 %; White Blood Count 8.4 K/mcL (4.3-11.1)
[2019-10-10 06:56] LABS: BUN/Creatinine Ratio 11 (6-26); Blood Urea Nitrogen 10 mg/dL (8-23); Calcium 8.3 mg/dL (8.6-10.3); Carbon Dioxide 30 mEq/L (23-29); Chloride 105 mEq/L (98-107); Glucose 102 mg/dL (70-105); Magnesium 1.9 mg/dL (1.6-2.6); Osmolality,Calculated 293 (280-300); Potassium 3.6 mEq/L (3.5-5.1); Sodium 142 mEq/L (136-145); eGFR For African Americans > 60 (> 60); eGFR For Non-African Americans > 60 (> 60)
[2019-10-10] MEDS: Budesonide/Formoterol 160/4.5 1 PUFF INH IH SCH ×2 (07:52→20:32)
[2019-10-10] MEDS: Insulin LISPRO 300 UNITS/3 ML VIAL SQ SCH ×4 (09:00→21:09)
[2019-10-10] MEDS: Aspirin Enteric Coated 81 MG Tablet PO SCH (09:32)
[2019-10-10] MEDS: lisinopriL 20 MG TABLET PO SCH (09:34)
[2019-10-10] MEDS: lamoTRIgine 100 MG TABLET PO SCH (09:34)
[2019-10-10] MEDS: Furosemide 40 MG TABLET PO SCH ×2 (09:35→16:51)
[2019-10-10] MEDS: Nicotine 14 MG PATCH.TD24 TD SCH (09:36)
[2019-10-10] MEDS: Cetaphil Lotion 473 ML BOTTLE TP SCH (09:38)
[2019-10-10] MEDS: Triamcinolone Acet 0.1% CRM 15 GM TUBE TP SCH ×2 (09:39→20:27)
[2019-10-10] MEDS: Insulin DETEMIR 100 UNIT/ML X5UNITS SQ SCH ×2 (12:29→20:27)
[2019-10-10] MEDS: Lactulose Oral Soln 20 GM/30 ML UDC PO SCH ×3 (12:40→22:00)
[2019-10-10] MEDS ORDERED: Isovue-370 500 ML BOTTLE IVP ONE (15:30)
[2019-10-11 02:26] LABS: Basophils # 0.1 K/mcL (0.0-0.2); Basophils % 0.5 %; Eosinophils # 0.9 K/mcL (0.0-0.6); Eosinophils % 7.8 %; Hematocrit 35.3 % (37.5-50.1); Hemoglobin 10.7 g/dL (12.9-16.9); Immature Granulocytes % 0.5 % (0-4); Lymphocytes % 24.8 %; Mean Corpuscular HGB Conc 30.3 g/dL (31.6-35.5); Mean Corpuscular Hemoglobin 30.6 pg (28.0-33.3); Mean Corpuscular Volume 100.9 fL (83.0-100.0); Monocytes # 1.1 K/mcL (0.0-1.3); Monocytes % 9.4 %; Neutrophils # 6.8 K/mcL (1.6-8.9); Platelet Count 199 K/mcL (140-400); White Blood Count 11.9 K/mcL (4.3-11.1)
[2019-10-11] MEDS: Piperacillin/Tazobactam 3.375 GM in 0.9 % Sodium Chloride Mini Bag 100 ML IVPB SCH ×3 (02:36→18:01)
[2019-10-11 02:45] LABS: BUN/Creatinine Ratio 12 (6-26); Blood Urea Nitrogen 12 mg/dL (8-23); Calcium 8.4 mg/dL (8.6-10.3); Carbon Dioxide 28 mEq/L (23-29); Chloride 103 mEq/L (98-107); Glucose 88 mg/dL (70-105); Magnesium 1.6 mg/dL (1.6-2.6); Osmolality,Calculated 287 (280-300); Potassium 3.6 mEq/L (3.5-5.1); Sodium 139 mEq/L (136-145); eGFR For African Americans > 60 (> 60); eGFR For Non-African Americans > 60 (> 60)
[2019-10-11] MEDS: *HR* Enoxaparin 40 MG/0.4 ML SYRINGE SQ SCH (05:30)
[2019-10-11] MEDS: Budesonide/Formoterol 160/4.5 1 PUFF INH IH SCH ×2 (07:57→21:05)
[2019-10-11] MEDS: Furosemide 40 MG TABLET PO SCH ×2 (08:23→17:03)
[2019-10-11] MEDS: Insulin LISPRO 300 UNITS/3 ML VIAL SQ SCH ×4 (08:23→20:35)
[2019-10-11] MEDS: lamoTRIgine 100 MG TABLET PO SCH (08:24)
[2019-10-11] MEDS: Aspirin Enteric Coated 81 MG Tablet PO SCH (08:24)
[2019-10-11] MEDS: Lactulose Oral Soln 20 GM/30 ML UDC PO SCH ×3 (08:26→20:43)
[2019-10-11] MEDS: lisinopriL 20 MG TABLET PO SCH (08:26)
[2019-10-11] MEDS: Nicotine 14 MG PATCH.TD24 TD SCH (08:26)
[2019-10-11] MEDS: Triamcinolone Acet 0.1% CRM 15 GM TUBE TP SCH ×2 (08:26→20:39)
[2019-10-11] MEDS: Insulin DETEMIR 100 UNIT/ML X5UNITS SQ SCH ×2 (08:27→20:39)
[2019-10-11] MEDS: Cetaphil Lotion 473 ML BOTTLE TP SCH (08:30)
[2019-10-12 00:44] LABS: Basophils # 0.1 K/mcL (0.0-0.2); Basophils % 0.5 %; Eosinophils # 0.7 K/mcL (0.0-0.6); Eosinophils % 6.5 %; Hemoglobin 11.1 g/dL (12.9-16.9); Immature Granulocytes % 0.3 % (0-4); Lymphocytes # 2.8 K/mcL (0.6-4.6); Lymphocytes % 25.4 %; Mean Corpuscular HGB Conc 30.8 g/dL (31.6-35.5); Mean Corpuscular Hemoglobin 31.3 pg (28.0-33.3); Mean Corpuscular Volume 101.4 fL (83.0-100.0); Mean Platelet Volume 10.3 fL (9.4-12.4); Monocytes # 1.1 K/mcL (0.0-1.3); Monocytes % 9.7 %; Neutrophils # 6.3 K/mcL (1.6-8.9); Platelet Count 199 K/mcL (140-400); Red Blood Count 3.55 M/mcL (4.19-5.50); Red Cell Distribution Width 21.7 % (11.5-14.5); Segmented Neutrophils % 57.6 %; White Blood Count 10.9 K/mcL (4.3-11.1)
[2019-10-12 01:03] LABS: BUN/Creatinine Ratio 14 (6-26); Blood Urea Nitrogen 13 mg/dL (8-23); Calcium 8.3 mg/dL (8.6-10.3); Carbon Dioxide 25 mEq/L (23-29); Chloride 102 mEq/L (98-107); Glucose 153 mg/dL (70-105); Magnesium 1.7 mg/dL (1.6-2.6); Osmolality,Calculated 285 (280-300); Potassium 3.8 mEq/L (3.5-5.1); Sodium 136 mEq/L (136-145); eGFR For African Americans > 60 (> 60); eGFR For Non-African Americans > 60 (> 60)
[2019-10-12] MEDS: Piperacillin/Tazobactam 3.375 GM in 0.9 % Sodium Chloride Mini Bag 100 ML IVPB SCH ×3 (02:49→18:04)
[2019-10-12] MEDS: *HR* Enoxaparin 40 MG/0.4 ML SYRINGE SQ SCH (05:57)
[2019-10-12] MEDS: Budesonide/Formoterol 160/4.5 1 PUFF INH IH SCH ×2 (07:40→20:09)
[2019-10-12] MEDS: lisinopriL 20 MG TABLET PO SCH (08:52)
[2019-10-12] MEDS: Furosemide 40 MG TABLET PO SCH ×2 (08:52→17:59)
[2019-10-12] MEDS: Aspirin Enteric Coated 81 MG Tablet PO SCH (08:52)
[2019-10-12] MEDS: lamoTRIgine 100 MG TABLET PO SCH (08:52)
[2019-10-12] MEDS: Nicotine 14 MG PATCH.TD24 TD SCH (08:53)
[2019-10-12] MEDS: Triamcinolone Acet 0.1% CRM 15 GM TUBE TP SCH ×2 (08:53→20:50)
[2019-10-12] MEDS: Cetaphil Lotion 473 ML BOTTLE TP SCH (08:53)
[2019-10-12] MEDS: Insulin LISPRO 300 UNITS/3 ML VIAL SQ SCH ×4 (08:53→20:49)
[2019-10-12] MEDS: Lactulose Oral Soln 20 GM/30 ML UDC PO SCH ×3 (08:55→20:50)
[2019-10-12] MEDS: Insulin DETEMIR 100 UNIT/ML X5UNITS SQ SCH ×2 (08:57→20:54)
[2019-10-13 02:21] LABS: Basophils # 0.1 K/mcL (0.0-0.2); Basophils % 0.5 %; Eosinophils # 0.6 K/mcL (0.0-0.6); Eosinophils % 5.9 %; Hematocrit 33.4 % (37.5-50.1); Hemoglobin 10.4 g/dL (12.9-16.9); Immature Granulocytes % 0.3 % (0-4); Lymphocytes % 27.7 %; Mean Corpuscular HGB Conc 31.1 g/dL (31.6-35.5); Mean Corpuscular Hemoglobin 31.2 pg (28.0-33.3); Mean Corpuscular Volume 100.3 fL (83.0-100.0); Mean Platelet Volume 10.8 fL (9.4-12.4); Monocytes # 1.2 K/mcL (0.0-1.3); Monocytes % 11.1 %; Neutrophils # 5.9 K/mcL (1.6-8.9); Platelet Count 196 K/mcL (140-400); Red Blood Count 3.33 M/mcL (4.19-5.50); Red Cell Distribution Width 21.3 % (11.5-14.5); Segmented Neutrophils % 54.5 %; White Blood Count 10.8 K/mcL (4.3-11.1)
[2019-10-13 02:40] LABS: BUN/Creatinine Ratio 15 (6-26); Blood Urea Nitrogen 16 mg/dL (8-23); Calcium 7.9 mg/dL (8.6-10.3); Carbon Dioxide 28 mEq/L (23-29); Chloride 102 mEq/L (98-107); Glucose 112 mg/dL (70-105); Magnesium 1.6 mg/dL (1.6-2.6); Osmolality,Calculated 286 (280-300); Potassium 3.9 mEq/L (3.5-5.1); Sodium 137 mEq/L (136-145); eGFR For African Americans > 60 (> 60); eGFR For Non-African Americans > 60 (> 60)
[2019-10-13] MEDS: Piperacillin/Tazobactam 3.375 GM in 0.9 % Sodium Chloride Mini Bag 100 ML IVPB SCH ×3 (03:48→18:31)
[2019-10-13] MEDS: *HR* Enoxaparin 40 MG/0.4 ML SYRINGE SQ SCH (05:23)
[2019-10-13] MEDS: Furosemide 40 MG TABLET PO SCH ×2 (08:34→17:26)
[2019-10-13] MEDS: Insulin LISPRO 300 UNITS/3 ML VIAL SQ SCH ×4 (08:34→21:18)
[2019-10-13] MEDS: Insulin DETEMIR 100 UNIT/ML X5UNITS SQ SCH ×2 (08:35→21:40)
[2019-10-13] MEDS: lamoTRIgine 100 MG TABLET PO SCH (08:35)
[2019-10-13] MEDS: Lactulose Oral Soln 20 GM/30 ML UDC PO SCH ×3 (08:35→17:28)
[2019-10-13] MEDS: Aspirin Enteric Coated 81 MG Tablet PO SCH (08:35)
[2019-10-13] MEDS: Cetaphil Lotion 473 ML BOTTLE TP SCH (08:37)
[2019-10-13] MEDS: Budesonide/Formoterol 160/4.5 1 PUFF INH IH SCH ×2 (09:52→19:45)
[2019-10-13] MEDS: lisinopriL 20 MG TABLET PO SCH (10:05)
[2019-10-13] MEDS: Nicotine 14 MG PATCH.TD24 TD SCH (10:05)
[2019-10-13] MEDS: QUEtiapine Fumarate 25 MG TABLET PO SCH (21:39)
[2019-10-14] MEDS: Piperacillin/Tazobactam 3.375 GM in 0.9 % Sodium Chloride Mini Bag 100 ML IVPB SCH ×3 (04:06→18:36)
[2019-10-14 04:47] LABS: Basophils # 0.1 K/mcL (0.0-0.2); Basophils % 0.4 %; Eosinophils # 0.9 K/mcL (0.0-0.6); Eosinophils % 6.3 %; Hematocrit 31.1 % (37.5-50.1); Hemoglobin 9.5 g/dL (12.9-16.9); Immature Granulocytes % 0.5 % (0-4); Lymphocytes # 4.8 K/mcL (0.6-4.6); Mean Corpuscular HGB Conc 30.5 g/dL (31.6-35.5); Mean Corpuscular Hemoglobin 30.4 pg (28.0-33.3); Mean Corpuscular Volume 99.7 fL (83.0-100.0); Mean Platelet Volume 10.4 fL (9.4-12.4); Monocytes # 1.7 K/mcL (0.0-1.3); Monocytes % 11.9 %; Platelet Count 220 K/mcL (140-400); Red Blood Count 3.12 M/mcL (4.19-5.50); Red Cell Distribution Width 20.9 % (11.5-14.5); Segmented Neutrophils % 46.9 %; White Blood Count 14.2 K/mcL (4.3-11.1)
[2019-10-14 04:53] LABS: Neutrophils # 6.7 K/mcL (1.6-8.9)
[2019-10-14 05:08] LABS: BUN/Creatinine Ratio 38 (6-26); Blood Urea Nitrogen 33 mg/dL (8-23); Carbon Dioxide 25 mEq/L (23-29); Chloride 104 mEq/L (98-107); Glucose 133 mg/dL (70-105); Magnesium 1.7 mg/dL (1.6-2.6); Osmolality,Calculated 293 (280-300); Potassium 4.3 mEq/L (3.5-5.1); Sodium 137 mEq/L (136-145); eGFR For African Americans > 60 (> 60); eGFR For Non-African Americans > 60 (> 60)
[2019-10-14 05:12] LABS: Anisocytosis 1+ (Not Present); Macrocytosis Present (Not Present); Platelet Estimate Normal (Normal)
[2019-10-14 05:13] LABS: Reactive Lymphocytes Present (Not Present); Smudge Cells Present (Not Present)
[2019-10-14] MEDS: *HR* Enoxaparin 40 MG/0.4 ML SYRINGE SQ SCH (05:20)
[2019-10-14] MEDS: Insulin LISPRO 300 UNITS/3 ML VIAL SQ SCH ×4 (07:27→20:05)
[2019-10-14] MEDS: Insulin DETEMIR 100 UNIT/ML X5UNITS SQ SCH ×2 (07:27→20:04)
[2019-10-14] MEDS: Aspirin Enteric Coated 81 MG Tablet PO SCH (07:29)
[2019-10-14] MEDS: Furosemide 40 MG TABLET PO SCH (07:29)
[2019-10-14] MEDS: Cetaphil Lotion 473 ML BOTTLE TP SCH (07:29)
[2019-10-14] MEDS: QUEtiapine Fumarate 25 MG TABLET PO SCH ×2 (07:30→20:04)
[2019-10-14] MEDS: Nicotine 14 MG PATCH.TD24 TD SCH (07:30)
[2019-10-14] MEDS: lamoTRIgine 100 MG TABLET PO SCH (07:30)
[2019-10-14] MEDS: Lactulose Oral Soln 20 GM/30 ML UDC PO SCH ×4 (07:30→20:05)
[2019-10-14] MEDS: lisinopriL 20 MG TABLET PO SCH (07:31)
[2019-10-14] MEDS: Budesonide/Formoterol 160/4.5 1 PUFF INH IH SCH ×2 (07:57→19:45)
[2019-10-14] MEDS ORDERED: Lidocaine -MPF 2% 2 ML VIAL ONE ×2 (10:18→14:50)
[2019-10-14] MEDS ORDERED: Pantoprazole 80 MG in 0.9 % Sodium Chloride 50 ML IVPB ONE (10:39)
[2019-10-14] MEDS ORDERED: Octreotide 50 MCG/ML INJ IVP ONE (10:41)
[2019-10-14] MEDS ORDERED: Octreotide 400 MCG in 0.9 % Sodium Chloride 100 ML IVC SCH (10:45)
[2019-10-14 11:33] LABS: Hematocrit 32.1 % (37.5-50.1); Hemoglobin 9.5 g/dL (12.9-16.9)
[2019-10-14 11:45] LABS: INR 1.6; Prothrombin Time 18.7 Seconds (9.4-12.1)
[2019-10-14] MEDS ORDERED: Ringers Solution, Lactated 1,000 ML IVC ONE (12:16)
[2019-10-14] MEDS ORDERED: *HR* Propofol 200 MG/20 ML VIAL IVP ONE (14:50)
[2019-10-14] MEDS ORDERED: *HR* Succinylcholine 200 MG/10 ML VIAL IVP ONE (14:56)
[2019-10-14] MEDS ORDERED: *HR* FentaNYL (PF) 100 MCG/2 ML VIAL ONE (14:56)
[2019-10-14 16:19] LABS: ABG Base Excess 1 mEq/L (-2 to 3); ABG HCO3 25 mEq/L (21-27); ABG Oxygen Saturation 93 % (95-98); ABG PCO2 40 mmHg (35-45); ABG PH 7.41 pH Units (7.32-7.45); ABG PO2 64 mmHg (85-104); ABG TCO2 27 mEq/L (20-26)
[2019-10-14 16:35] LABS: Hemoglobin 9.7 g/dL (12.9-16.9)
[2019-10-14] MEDS ORDERED: *HR* Promethazine 25 MG/ML VIAL IVP PRN (16:44)
[2019-10-14] MEDS: Ondansetron 4 MG/2 ML VIAL IVP PRN (16:46)
[2019-10-14 22:14] LABS: Hemoglobin 9.3 g/dL (12.9-16.9)
[2019-10-14] MEDS: Pantoprazole 40 MG VIAL IVP SCH (23:33)
[2019-10-15] MEDS: Piperacillin/Tazobactam 3.375 GM in 0.9 % Sodium Chloride Mini Bag 100 ML IVPB SCH ×3 (02:59→18:16)
[2019-10-15 05:36] LABS: Basophils # 0.1 K/mcL (0.0-0.2); Basophils % 0.3 %; Eosinophils # 0.2 K/mcL (0.0-0.6); Hematocrit 28.6 % (37.5-50.1); Hemoglobin 8.8 g/dL (12.9-16.9); Immature Granulocytes % 0.6 % (0-4); Lymphocytes # 4.9 K/mcL (0.6-4.6); Lymphocytes % 21.7 %; Mean Corpuscular HGB Conc 30.8 g/dL (31.6-35.5); Mean Corpuscular Hemoglobin 31.4 pg (28.0-33.3); Mean Corpuscular Volume 102.1 fL (83.0-100.0); Mean Platelet Volume 10.6 fL (9.4-12.4); Monocytes # 1.6 K/mcL (0.0-1.3); Monocytes % 6.9 %; Neutrophils # 15.6 K/mcL (1.6-8.9); Platelet Count 198 K/mcL (140-400); Red Cell Distribution Width 21.1 % (11.5-14.5); Segmented Neutrophils % 69.5 %; White Blood Count 22.5 K/mcL (4.3-11.1)
[2019-10-15 06:09] LABS: Alanine Aminotransferase 10 Units/L (7-52); Albumin 2.5 g/dL (3.5-5.7); Alkaline Phosphatase 71 Units/L (34-104); Aspartate Amino Transferase 41 Units/L (13-39); BUN/Creatinine Ratio 42 (6-26); Bilirubin,Direct 0.3 mg/dL (0.0-0.2); Bilirubin,Indirect 0.6 mg/dL (0.0-1.0); Bilirubin,Total 0.9 mg/dL (0.3-1.0); Blood Urea Nitrogen 43 mg/dL (8-23); Calcium 8.1 mg/dL (8.6-10.3); Carbon Dioxide 26 mEq/L (23-29); Chloride 107 mEq/L (98-107); Globulin 2.6 g/dL (2.4-3.5); Glucose 157 mg/dL (70-105); Magnesium 1.8 mg/dL (1.6-2.6); Osmolality,Calculated 302 (280-300); Potassium 4.5 mEq/L (3.5-5.1); Sodium 139 mEq/L (136-145); Total Protein 5.1 g/dL (6.4-8.9); eGFR For African Americans > 60 (> 60); eGFR For Non-African Americans > 60 (> 60)
[2019-10-15] MEDS ORDERED: 0.9 % Sodium Chloride 500 ML IVC ONE (06:24)
[2019-10-15] MEDS ORDERED: 0.9 % Sodium Chloride 500 ML ONE (06:25)
[2019-10-15] MEDS ORDERED: Albumin 25% 25gram/100mL 25 GM/100 ML IV.SOLN IVPB ONE (06:26)
[2019-10-15] MEDS ORDERED: Albumin 25% 25gram/100mL 25 GM/100 ML IV.SOLN ONE (06:30)
[2019-10-15] MEDS: Budesonide/Formoterol 160/4.5 1 PUFF INH IH SCH ×2 (07:31→19:58)
[2019-10-15] MEDS: Insulin LISPRO 300 UNITS/3 ML VIAL SQ SCH ×4 (08:42→20:11)
[2019-10-15] MEDS: Lactulose Oral Soln 20 GM/30 ML UDC PO SCH ×3 (08:51→20:08)
[2019-10-15] MEDS: Ondansetron 4 MG/2 ML VIAL IVP PRN ×2 (08:51→16:11)
[2019-10-15] MEDS: Nicotine 14 MG PATCH.TD24 TD SCH (08:52)
[2019-10-15] MEDS: QUEtiapine Fumarate 25 MG TABLET PO SCH ×2 (08:52→20:07)
[2019-10-15] MEDS: Cetaphil Lotion 473 ML BOTTLE TP SCH (08:54)
[2019-10-15] MEDS: lamoTRIgine 100 MG TABLET PO SCH (08:55)
[2019-10-15] MEDS: Aspirin Enteric Coated 81 MG Tablet PO SCH (08:55)
[2019-10-15] MEDS: *HR* OxyCODONE Immed Rel 5 MG TABLET PO PRN ×2 (09:12→18:15)
[2019-10-15] MEDS: Insulin DETEMIR 100 UNIT/ML X5UNITS SQ SCH ×2 (09:13→20:13)
[2019-10-15 09:45] LABS: Hematocrit 28.8 % (37.5-50.1); Hemoglobin 8.6 g/dL (12.9-16.9)
[2019-10-15] MEDS: Pantoprazole 40 MG VIAL IVP SCH ×2 (12:05→22:08)
[2019-10-15 14:57] LABS: Hematocrit 25.8 % (37.5-50.1); Hemoglobin 7.8 g/dL (12.9-16.9)
[2019-10-15 20:52] LABS: Hematocrit 26.1 % (37.5-50.1); Hemoglobin 8.1 g/dL (12.9-16.9)
[2019-10-16 01:32] LABS: Hematocrit 30.7 % (37.5-50.1); Hemoglobin 9.1 g/dL (12.9-16.9)
[2019-10-16] MEDS: Piperacillin/Tazobactam 3.375 GM in 0.9 % Sodium Chloride Mini Bag 100 ML IVPB SCH ×3 (03:00→18:42)
[2019-10-16 07:39] LABS: Basophils % 0.4 %; Eosinophils # 0.2 K/mcL (0.0-0.6); Eosinophils % 1.8 %; Hematocrit 26.6 % (37.5-50.1); Immature Granulocytes % 0.4 % (0-4); Lymphocytes # 2.8 K/mcL (0.6-4.6); Lymphocytes % 25.7 %; Mean Corpuscular HGB Conc 30.1 g/dL (31.6-35.5); Mean Corpuscular Hemoglobin 31.5 pg (28.0-33.3); Mean Corpuscular Volume 104.7 fL (83.0-100.0); Mean Platelet Volume 10.7 fL (9.4-12.4); Monocytes # 1.1 K/mcL (0.0-1.3); Monocytes % 10.2 %; Neutrophils # 6.7 K/mcL (1.6-8.9); Platelet Count 149 K/mcL (140-400); Red Blood Count 2.54 M/mcL (4.19-5.50); Red Cell Distribution Width 21.3 % (11.5-14.5); Segmented Neutrophils % 61.5 %
[2019-10-16 07:41] LABS: White Blood Count 10.9 K/mcL (4.3-11.1)
[2019-10-16] MEDS: Budesonide/Formoterol 160/4.5 1 PUFF INH IH SCH ×2 (07:50→19:44)
[2019-10-16 07:52] LABS: BUN/Creatinine Ratio 33 (6-26); Blood Urea Nitrogen 35 mg/dL (8-23); Calcium 8.1 mg/dL (8.6-10.3); Carbon Dioxide 25 mEq/L (23-29); Chloride 113 mEq/L (98-107); Glucose 150 mg/dL (70-105); Osmolality,Calculated 309 (280-300); Potassium 3.6 mEq/L (3.5-5.1); Sodium 144 mEq/L (136-145); eGFR For African Americans > 60 (> 60); eGFR For Non-African Americans > 60 (> 60)
[2019-10-16] MEDS ORDERED: Aminoglycoside Consult 1 EACH MC ONE (08:38)
[2019-10-16] MEDS: Insulin LISPRO 300 UNITS/3 ML VIAL SQ SCH ×4 (08:39→20:15)
[2019-10-16] MEDS: Insulin DETEMIR 100 UNIT/ML X5UNITS SQ SCH ×2 (08:41→20:53)
[2019-10-16] MEDS: Nicotine 14 MG PATCH.TD24 TD SCH (08:41)
[2019-10-16] MEDS: QUEtiapine Fumarate 25 MG TABLET PO SCH ×2 (08:42→20:53)
[2019-10-16] MEDS: Aspirin Enteric Coated 81 MG Tablet PO SCH (08:42)
[2019-10-16] MEDS: lamoTRIgine 100 MG TABLET PO SCH (08:42)
[2019-10-16] MEDS: Cetaphil Lotion 473 ML BOTTLE TP SCH (08:43)
[2019-10-16] MEDS: Lactulose Oral Soln 20 GM/30 ML UDC PO SCH ×3 (08:43→20:58)
[2019-10-16] MEDS: Pantoprazole 40 MG VIAL IVP SCH ×2 (11:11→22:01)
[2019-10-16] MEDS: *HR* OxyCODONE Immed Rel 5 MG TABLET PO PRN (11:24)
[2019-10-16 15:27] LABS: Hematocrit 27.5 % (37.5-50.1); Hemoglobin 8.1 g/dL (12.9-16.9)
[2019-10-17] MEDS: Piperacillin/Tazobactam 3.375 GM in 0.9 % Sodium Chloride Mini Bag 100 ML IVPB SCH ×4 (03:09→18:49)
[2019-10-17] MEDS: Budesonide/Formoterol 160/4.5 1 PUFF INH IH SCH ×2 (07:20→19:54)
[2019-10-17] MEDS: lamoTRIgine 100 MG TABLET PO SCH (07:34)
[2019-10-17] MEDS: Insulin LISPRO 300 UNITS/3 ML VIAL SQ SCH ×3 (07:34→22:01)
[2019-10-17] MEDS: Insulin DETEMIR 100 UNIT/ML X5UNITS SQ SCH ×2 (07:34→22:02)
[2019-10-17] MEDS: Lactulose Oral Soln 20 GM/30 ML UDC PO SCH ×3 (07:34→22:05)
[2019-10-17] MEDS: QUEtiapine Fumarate 25 MG TABLET PO SCH ×2 (07:34→22:01)
[2019-10-17] MEDS ORDERED: Haloperidol Lactate 5 MG/ML VIAL IVP ONE (10:46)
[2019-10-17] MEDS: Nicotine 14 MG PATCH.TD24 TD SCH (11:09)
[2019-10-17] MEDS: Pantoprazole 40 MG VIAL IVP SCH ×2 (11:09→22:05)
[2019-10-17] MEDS: Cetaphil Lotion 473 ML BOTTLE TP SCH (13:43)
[2019-10-17] MEDS ORDERED: *HR* OxyCODONE Immed Rel 5 MG TABLET PO PRN (13:58)
[2019-10-17] MEDS ORDERED: *HR* Dextrose 50 % in Water (Syg) 50 ML SYRINGE IVP PRN (13:58)
[2019-10-17] MEDS ORDERED: D5% in Water 1,000 ML IVC PRN (13:58)
[2019-10-17] MEDS ORDERED: Dextrose Gel 15 GM/37.5 ML TUBE PO PRN ×2 (13:58)
[2019-10-17] MEDS ORDERED: Ipratropium/Albuterol Neb 3 ML IH PRN (13:58)
[2019-10-17] MEDS ORDERED: Acetaminophen 325 MG TABLET PO PRN (13:58)
[2019-10-17] MEDS ORDERED: Ondansetron 4 MG/2 ML VIAL IVP PRN (13:58)
[2019-10-17] MEDS ORDERED: *HR* Promethazine 25 MG/ML VIAL IVP PRN (13:58)
[2019-10-17] MEDS ORDERED: Haloperidol Lactate 5 MG/ML VIAL IVP PRN (16:09)
[2019-10-18] MEDS: Insulin LISPRO 300 UNITS/3 ML VIAL SQ SCH ×5 (02:01→20:57)
[2019-10-18] MEDS: Piperacillin/Tazobactam 3.375 GM in 0.9 % Sodium Chloride Mini Bag 100 ML IVPB SCH ×3 (02:02→19:40)
[2019-10-18 05:58] LABS: Hematocrit 27.6 % (37.5-50.1); Hemoglobin 8.6 g/dL (12.9-16.9); Mean Corpuscular HGB Conc 31.2 g/dL (31.6-35.5); Mean Corpuscular Hemoglobin 31.3 pg (28.0-33.3); Mean Corpuscular Volume 100.4 fL (83.0-100.0); Mean Platelet Volume 11.4 fL (9.4-12.4); Platelet Count 165 K/mcL (140-400); Red Blood Count 2.75 M/mcL (4.19-5.50); Red Cell Distribution Width 20.8 % (11.5-14.5); White Blood Count 14.7 K/mcL (4.3-11.1)
[2019-10-18 06:10] LABS: BUN/Creatinine Ratio 20 (6-26); Blood Urea Nitrogen 29 mg/dL (8-23); Carbon Dioxide 21 mEq/L (23-29); Chloride 109 mEq/L (98-107); Glucose 173 mg/dL (70-105); Osmolality,Calculated 298 (280-300); Potassium 4.2 mEq/L (3.5-5.1); Sodium 139 mEq/L (136-145); eGFR For African Americans > 60 (> 60); eGFR For Non-African Americans 50 (> 60)
[2019-10-18] MEDS: Budesonide/Formoterol 160/4.5 1 PUFF INH IH SCH ×2 (07:57→21:47)
[2019-10-18] MEDS: QUEtiapine Fumarate 25 MG TABLET PO SCH ×2 (08:09→20:56)
[2019-10-18] MEDS: lamoTRIgine 100 MG TABLET PO SCH (08:09)
[2019-10-18] MEDS: Lactulose Oral Soln 20 GM/30 ML UDC PO SCH ×3 (08:09→20:57)
[2019-10-18] MEDS: Insulin DETEMIR 100 UNIT/ML X5UNITS SQ SCH ×2 (08:11→21:01)
[2019-10-18] MEDS: Cetaphil Lotion 473 ML BOTTLE TP SCH (08:12)
[2019-10-18] MEDS: Nicotine 14 MG PATCH.TD24 TD SCH (08:26)
[2019-10-18] MEDS: Pantoprazole 40 MG VIAL IVP SCH ×2 (11:48→23:35)
[2019-10-19 02:42] LABS: Hematocrit 26.6 % (37.5-50.1); Hemoglobin 8.1 g/dL (12.9-16.9); Mean Corpuscular HGB Conc 30.5 g/dL (31.6-35.5); Mean Corpuscular Hemoglobin 30.7 pg (28.0-33.3); Mean Corpuscular Volume 100.8 fL (83.0-100.0); Mean Platelet Volume 10.6 fL (9.4-12.4); Platelet Count 173 K/mcL (140-400); Red Blood Count 2.64 M/mcL (4.19-5.50); Red Cell Distribution Width 20.3 % (11.5-14.5); White Blood Count 12.4 K/mcL (4.3-11.1)
[2019-10-19 03:01] LABS: BUN/Creatinine Ratio 21 (6-26); Blood Urea Nitrogen 23 mg/dL (8-23); Calcium 8.1 mg/dL (8.6-10.3); Carbon Dioxide 22 mEq/L (23-29); Chloride 105 mEq/L (98-107); Glucose 131 mg/dL (70-105); Osmolality,Calculated 287 (280-300); Potassium 3.6 mEq/L (3.5-5.1); Sodium 136 mEq/L (136-145); eGFR For African Americans > 60 (> 60); eGFR For Non-African Americans > 60 (> 60)
[2019-10-19] MEDS: Piperacillin/Tazobactam 3.375 GM in 0.9 % Sodium Chloride Mini Bag 100 ML IVPB SCH ×3 (03:28→18:35)
[2019-10-19] MEDS: Insulin LISPRO 300 UNITS/3 ML VIAL SQ SCH ×4 (09:16→21:20)
[2019-10-19] MEDS: Nicotine 14 MG PATCH.TD24 TD SCH (09:57)
[2019-10-19] MEDS: Insulin DETEMIR 100 UNIT/ML X5UNITS SQ SCH ×2 (10:01→21:43)
[2019-10-19] MEDS: Pantoprazole 40 MG VIAL IVP SCH ×2 (10:03→23:10)
[2019-10-19] MEDS: Lactulose Oral Soln 20 GM/30 ML UDC PO SCH ×3 (10:06→21:43)
[2019-10-19] MEDS: QUEtiapine Fumarate 25 MG TABLET PO SCH ×2 (10:14→21:43)
[2019-10-19] MEDS: lamoTRIgine 100 MG TABLET PO SCH (10:14)
[2019-10-19] MEDS: Cetaphil Lotion 473 ML BOTTLE TP SCH (10:15)
[2019-10-19] MEDS: Budesonide/Formoterol 160/4.5 1 PUFF INH IH SCH ×2 (10:59→20:17)
[2019-10-20] MEDS: Piperacillin/Tazobactam 3.375 GM in 0.9 % Sodium Chloride Mini Bag 100 ML IVPB SCH (02:51)
[2019-10-20] MEDS: Budesonide/Formoterol 160/4.5 1 PUFF INH IH SCH ×2 (08:19→20:11)
[2019-10-20] MEDS: lamoTRIgine 100 MG TABLET PO SCH (10:10)
[2019-10-20] MEDS: Insulin LISPRO 300 UNITS/3 ML VIAL SQ SCH ×4 (10:10→23:14)
[2019-10-20] MEDS: Nicotine 14 MG PATCH.TD24 TD SCH (10:10)
[2019-10-20] MEDS: Lactulose Oral Soln 20 GM/30 ML UDC PO SCH ×3 (10:10→20:04)
[2019-10-20] MEDS: Insulin DETEMIR 100 UNIT/ML X5UNITS SQ SCH ×2 (10:10→23:17)
[2019-10-20] MEDS: Cetaphil Lotion 473 ML BOTTLE TP SCH (10:10)
[2019-10-20] MEDS: QUEtiapine Fumarate 25 MG TABLET PO SCH ×2 (10:11→19:57)
[2019-10-20] MEDS: Furosemide 40 MG TABLET PO SCH ×2 (14:06→16:26)
[2019-10-21 02:42] LABS: Hematocrit 22.8 % (37.5-50.1); Hemoglobin 7.4 g/dL (12.9-16.9); Mean Corpuscular HGB Conc 32.5 g/dL (31.6-35.5); Mean Corpuscular Hemoglobin 31.8 pg (28.0-33.3); Mean Corpuscular Volume 97.9 fL (83.0-100.0); Mean Platelet Volume 10.9 fL (9.4-12.4); Platelet Count 184 K/mcL (140-400); Red Blood Count 2.33 M/mcL (4.19-5.50); White Blood Count 10.1 K/mcL (4.3-11.1)
[2019-10-21 02:59] LABS: BUN/Creatinine Ratio 17 (6-26); Blood Urea Nitrogen 18 mg/dL (8-23); Calcium 7.8 mg/dL (8.6-10.3); Carbon Dioxide 22 mEq/L (23-29); Chloride 105 mEq/L (98-107); Glucose 96 mg/dL (70-105); Osmolality,Calculated 284 (280-300); Potassium 3.8 mEq/L (3.5-5.1); Sodium 136 mEq/L (136-145); eGFR For African Americans > 60 (> 60); eGFR For Non-African Americans > 60 (> 60)
[2019-10-21] MEDS: Budesonide/Formoterol 160/4.5 1 PUFF INH IH SCH (07:44)
[2019-10-21] MEDS: Furosemide 40 MG TABLET PO SCH (09:58)
[2019-10-21] MEDS: lamoTRIgine 100 MG TABLET PO SCH (09:58)
[2019-10-21] MEDS: QUEtiapine Fumarate 25 MG TABLET PO SCH (09:59)
[2019-10-21] MEDS: Nicotine 14 MG PATCH.TD24 TD SCH (10:03)
[2019-10-21] MEDS: Lactulose Oral Soln 20 GM/30 ML UDC PO SCH (10:03)
[2019-10-21] MEDS: Insulin LISPRO 300 UNITS/3 ML VIAL SQ SCH ×2 (10:04→12:30)
[2019-10-21] MEDS: Insulin DETEMIR 100 UNIT/ML X5UNITS SQ SCH (10:08)
[2019-10-21] MEDS: Cetaphil Lotion 473 ML BOTTLE TP SCH (10:21)
[2019-10-21 12:00] VITALS: BP 129/67
== END 2019-10-21 14:45 | DRG 949 ==
LOC: SUATTDRO 12:17 → INTOOBSV 12:17 → 3ANU 12:17 → SUATTDRO 10-08 10:28 → ICNU 10-14 15:27 → 3NENU 10-17 16:45
PROVIDERS: ADMIT Internal Medicine; ATTEND Internal Medicine
PROC: ENDOEBX (2019-10-14 11:45)